=== PATIENT | female | born 1985 | race Caucasian/White ===

== ENCOUNTER 2018-09-25 09:24 | Day surgery (SDC) | payer OTHER, SELFPAY ==
[2018-09-25] MEDS: Doxycycline 100 MG CAPSULE PO (07:00)
[2018-09-25 10:01] VITALS: BP 150/95; PULSE 85; RESP 16; TEMP 36.8; O2SAT 100; BMI 39.0
[2018-09-25 10:12] LABS: Hematocrit 40.1 % (37-47); Hemoglobin 13.8 g/dl (12.0-15.0); Mean Corp Hgb Conc 34.4 g/gl (32-36); Mean Corpuscular Hgb 28.6 pg (27.0-32.0); Mean Platelet Vol. 10.7 fl (6.2-12.0); Platelet Count 103 K/mm3 (150-450); RBC Distribution Width CV 12.9 % (11.6-14.6); RBC Distribution Width SD 39.1 fl (35.1-43.9); Red Blood Count 4.83 M/mm3 (4.2-5.4); White Blood Count 8.3 K/mm3 (4.4-11.0)
[2018-09-25 10:13] LABS: Scan Indicated on CBC? Y/N NO
--- NOTE | 2018-09-25 11:00 | POC_PTH ---
PATIENT: MALCOLM GAGE LOC: [facility] – [place] U#:[id number] AGE/SX: 32/F ROOM: RE09/25/[address]: Dr. Candy Wylie MD : [id number] BED: DIS: 09/25/2018 SPEC #: [id number] RECD: 09/25/18 12:22 STATUS: MAGEN ADRIANA #: [id number] NANCY: 09/25/18 11:[address]: Candy Wylie DEPT: SURGICAL PATHOLOGY RECD BY: Fabio Loyola ENTERED: 09/25/18 13:25 SP TYPE: PROD CONC OTHR DR: Dr. Giovanni Artis III, MD Tissues: Product of conception, NOS Procedures: Surgery Specimen Level IV HEADER OPERATION: Dilation and curettage, suction PRE-OP DIAGNOSIS: Missed TISSUE SUBMITTED: Products of conception MICROSCOPIC DIAGNOSIS Endometrium, curettage: Chorionic villi, decidualized stroma and trophoblastic cells consistent with products of conception. See comment. AM:blaze 09/29/18 COMMENT Hydropic change is noted in some of the villi. Clinical correlation is suggested. MICROSCOPIC DESCRIPTION Slides are reviewed. GROSS DESCRIPTION Received in fixative is one container labeled with the patient's name and designated products of conception. The specimen consists of multiple irregular fragments of reddish-perez soft tissue that in aggregate measure 7 x 5 x 1 cm. Medical Surgical Tech portions are submitted for cytogenetic studies. Medical Surgical Tech portions are submitted in one cassette. 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 Within the limits of the cytogenetic technology utilized in this study, an apparent abnormal female karyotype was observed. All metaphases examined had 45 chromosomes with a single X chromosome. No other consistent numerical or structural abnormality was identified at the level of band resolution obtained in this study. 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 Please see complete report in e-chart or EMR for further details
[2018-09-25 12:15] VITALS: BP 118/63; BP 150/95; PULSE 81; RESP 18; TEMP 36.1; O2SAT 97
[2018-09-25 12:26] VITALS: BP 116/64; BP 150/95; PULSE 89; RESP 18; TEMP 36.1; O2SAT 98
--- NOTE | 2018-09-25 12:26 | DCINST_ITS ---
Discharge Diet: No Restrictions Discharge Activity: Return to Normal Activity - after 24 hours May resume sexual activity in: 2 weeks Weight Bearing Status: Weight bearing as tolerated Call your doctor if you observe: Fever of 101 or Higher, Coldness, Increased Pain, Numbness or Tingling, Change in Color, Inability to urinate, Inability to have a bowel movement, Using more than one pad per hour, Shortness of breath, Dizziness, Fainting spells, Chest pain, Increased palpitations (irregular heartbeat), Uncontrolled pain Allergies/Adverse Reactions: Allergies lavender (Lavandula angustifolia) [lavender] Allergy (Verified 09/23/18 11:35) Rash Medications to take at Discharge Vits [Prenatabs FA ] 1 tablet PO DAILY 09/23/18 Primary Care Physician: Giovanni Artis III, MD [Primary Care Provider] - Test Results: Test results from this visit will be discussed in further detail at your follow- up appointment, if applicable.
--- NOTE | 2018-09-25 12:26 | PCM.OPRPT ---
Report of Operation Date of Procedure: 09/25/18 Pre-Operative Diagnosis: Missed at 9&1 weeks Post-Operative Diagnosis: Same Surgery/Procedure Performed:: Suction dilation and curettage Description of Surgical Findings:: 9 week sized uterus that is retroverted. POC's c/w 9 weeks. Type of Anesthesia:: MAC Specimen's removed: Products of conception Estimated Blood Loss (mL): 100ml Fluids Replaced: 1100ml Description of Procedure: Patient taken to OR where MAC anesthesia placed & found to be adequate. She was placed in the dorsal lithotomy position, prepped & draped. Cervix was grasped with a single toothed tenaculum and then gently dilated. #7 suction curette introduced and removed with good return of POC's. Then additional passes made. Sharp curettage was performed gently with #2 curette. Additional suction curettage was performed. TAUS performed but was limited d/t her retroverted uterus. One additional pass with sharp curette was performed & confirmed gritty uterine texture. At end of procedure all instruments were removed from vaginal cavity. Patient tolerated the procedure well. - Complications none - Admit VTE Documentation VTE Present on Admission: No VTE Mechan Device Prophylaxis: SCD's
[2018-09-25 12:28] VITALS: BP 115/73; BP 150/95; PULSE 72; RESP 18; O2SAT 97
[2018-09-25 13:17] VITALS: BP 150/95
== END 2018-09-25 13:20 | disposition home or self-care (01) ==
LOC: SDC 09:28 → AC 09:29
PROVIDERS: Family Provider Family Medicine; PCP Family Medicine; Referring Provider Obstetrics & Gynecology; Visit Provider Obstetrics & Gynecology
PROC: (CPT 59820; principal; 2018-09-25 10:45)
DX: O02.1 Missed abortion (principal); N85.4 Malposition of uterus
CPT/HCPCS: 01965; 59820; 36415; 85027; 86850; 86900; 88305; J7120; J2405

== ENCOUNTER 2019-07-28 18:55 | Inpatient (IN) | payer OTHER, SELFPAY ==
[2019-07-28] VITALS (7 sets, daily range): BP systolic 120–136; BP diastolic 70–85; PULSE 89–98; TEMP 36.9–37.3; O2SAT 93–97; BMI 41.3
[2019-07-28] MEDS: 0.9% Saline Lock 10 ML Syringe IV (19:35)
[2019-07-28] MEDS: miSOPROStol 25 MCG TABLET VAGINAL (20:04)
[2019-07-28 20:20] LABS: Absolute Lymphocyte Count 2.28 X10^3/uL (0.83-4.51); Absolute Neutrophil Count 7.6 X10^3/uL (2.0-7.7); Basophil# 0.02 X10^3/uL; Basophil% 0.2 % (0-1); Eosinophil# 0.11 X10^3/uL; Hematocrit 36.2 % (37-47); Hemoglobin 12.1 g/dL (12.0-15.0); Lymphocyte # 2.28 X10^3/ul (4.0); Lymphocyte % 20.9 % (19-41); Mean Corp Hgb Conc 33.4 g/dL (32-36); Mean Corpuscular Hgb 28.4 pg (27.0-32.0); Mean Platelet Vol. 11.1 fl (6.2-12.0); Monocyte# 0.88 X10^3/uL; Monocyte% 8.1 % (0-10); NRBC Flagged by Analyzer 0 % (0-5); Neutrophil % 69.4 % (47-70); Platelet Count 236 K/mm3 (150-450); RBC Distribution Width CV 13.2 % (11.6-14.6); RBC Distribution Width SD 40.5 fl (35.1-43.9); Red Blood Count 4.26 M/mm3 (4.2-5.4); White Blood Count 10.9 K/mm3 (4.4-11.0)
[2019-07-28] MEDS: Labetalol 200 MG Tablet PO (21:32)
[2019-07-29] VITALS (56 sets, daily range): BP systolic 112–145; BP diastolic 57–100; PULSE 65–141; TEMP 36.7–37.7; O2SAT 84–100
[2019-07-29] MEDS: miSOPROStol 25 MCG TABLET VAGINAL
[2019-07-29] MEDS: 0.9% Saline Lock 10 ML Syringe IV (04:19)
[2019-07-29] MEDS: Oxytocin 30 units/NS 500 ml 30 UNITS/500 ML IV.SOLN IV (04:19)
[2019-07-29] MEDS: Lactated Ringers 1,000 ML 50 ML IV ×2 (04:19→13:46)
[2019-07-29 05:01] LABS: ROM Internal Control Test YES-OK TO RESULT pt. (Internal QC)
[2019-07-29 05:03] LABS: ROM Patient Test POSITIVE (Negative)
[2019-07-29] MEDS: Ondansetron 4 MG/2 ML Vial IV (08:33)
--- NOTE | 2019-07-29 08:35 | PCM.PN.BLA ---
Progress Note Patient seen at bedside. Doing well. Starting to feel contractions. CE- 2/60/-3, IUPC and FSE placed without difficulty. Thick meconium fluid continues to be present. Pitocin IV at 8mu/min A/P Continue plan of care Continue to titrate Pitocin Pain medication as indicated Anticipate STROKE Vital Signs/Narrative: Vital Signs Temp Pulse BP Pulse Ox 07/29/19 07:19 98.8 F 86 135/84 H 07/29/19 06:33 85 98 07/29/19 06:32 99.0 F 124/85 H 07/29/19 05:47 86 98 07/29/19 05:46 98.8 F 89 136/91 H
--- NOTE | 2019-07-29 08:41 | PCM.HP.OB ---
- Problem List (1) Obesity Status: Acute Qualifiers: Obesity type: unspecified obesity type (2) Spontaneous rupture of amniotic membranes Status: Acute (3) Meconium in amniotic fluid Status: Acute (4) Group beta Strep positive Status: Acute History Date of Admission: 07/28/19 Final LUBNA: 08/03/19 Gestational age: 39 Weeks and 2 Days History of this : This is a 33 year-old, , at 39.2 weeks gestational age that was admitted for induction of labor for increased blood pressures, obesity Allergies lavender (Lavandula angustifolia) [lavender] Allergy (Verified 07/28/19 19:29) Rash Home Medications: Home Medications Vits [Prenatabs FA ] 1 tablet PO DAILY 09/23/18 Aspirin [Aspirin, Baby] 81 mg PO DAILY 07/28/19 Labetalol [Trandate] 200 mg PO BID 07/28/19 Smoking Status: Never smoker Alcohol: None NST - FHR Rate Baby A Baseline: 135 History Past Pregnancies: Past Pregnancies Delivery Date Name GA/ Weeks Outcome Route Wt Sex Labor Length Anesthesia Delivery Location Provider FOB Labs: B positive Rubella - immune Syphilis- NR Hep B- negative HIV- NR GC/C- negative GBS= positive Physical Exam Vitals: Vital Signs Temp Pulse BP Pulse Ox 98.8 F 86 135/84 H 98 07/29/19 07:19 07/29/19 07:19 07/29/19 07:19 07/29/19 06:33 Assessment/Plan All Active Problems Post-term , 40-42 weeks of gestation (Acute) Obesity (Acute) Spontaneous rupture of amniotic membranes (Acute) Meconium in amniotic fluid (Acute) Group beta Strep positive (Acute) This is a 33 year-old, at 39.2 weeks gestational age here for induction of labor for increased blood pressure and obesity. A/P Admit to labor and delivery Continuous EFM and TOCO GBS=+, Start PCN 3million units every [address] internal monitors if unable to monitor Pain medication if indicated Start Pitocin and titrate as needed Anticipate Dr. Wylie updated and agrees with plan of care
[2019-07-29] MEDS: Lactated Ringers 500 ML 999 ML IV (08:58)
[2019-07-29] MEDS: fentaNYL-bupivacaine (epidural) 100 ML BAG EPIDURAL (09:48)
[2019-07-29] MEDS: Labetalol 200 MG Tablet PO ×2 (11:37→23:27)
--- NOTE | 2019-07-29 13:56 | PCM.PN.BLA ---
Progress Note Received update from bedside RN. Patient comfortable with epidural anesthesia. CE completed by RN was /-2. Tracing some noted early decelerations and minimal variability at times but overall reassuring and Category 1. Pitocin remains at 6mu/min Will continue to plan of care and anticipate . Dr. Wylie updated. STROKE Vital Signs/Narrative: Vital Signs Temp Pulse BP Pulse Ox 07/29/19 12:46 76 98 07/29/19 12:45 98.4 F 97 115/77 07/29/19 12:21 88 112/57 L 07/29/19 11:19 81 133/80 H 07/29/19 11:13 98.1 F 93 142/87 H 07/29/19 10:27 73 100 07/29/19 10:22 73 100 07/29/19 10:17 76 100 07/29/19 10:13 73 137/77 H 07/29/19 10:12 73 98 07/29/19 10:08 79 131/85 H 07/29/19 10:07 82 98 07/29/19 10:03 87 141/91 H 07/29/19 10:02 84 100 07/29/19 09:58 82 138/92 H 07/29/19 09:57 86 98
[2019-07-29] MEDS: Oxytocin 30 units/NS 500 ml 30 UNITS/500 ML IV.SOLN 334 UNITS IV ×2 (17:32)
--- NOTE | 2019-07-29 17:53 | PCM.OPRPT ---
Problem List (1) Obesity Status: Acute Qualifiers: Obesity type: unspecified obesity type (2) Spontaneous rupture of amniotic membranes Status: Resolved (3) Meconium in amniotic fluid Status: Resolved (4) Group beta Strep positive Status: Acute (5) Vaginal delivery Status: Acute (6) Perineal laceration during delivery, delivered Status: Acute Report of Operation Date of Procedure: 07/29/19 Pre-Operative Diagnosis: Term gestation, Induction of labor for Chronic HTN Post-Operative Diagnosis: Same, live female infant Surgery/Procedure Performed:: Spontaneous vaginal delivery Type of Anesthesia:: Epidural Vaginal Delivery Maternal Presentation: Medically Indicated Induction Method of Induction: Pitocin, Cytotec Medical Reason for Induction: - - Chronic HTN Amniotic Membrane Rupture Type: Spontaneous Rupture of Membrane time: 0433 Amniotic Fluid Description: Thick meconium Gestational age: 39.2 Date of Procedure: 07/29/19 Pre-Operative Diagnosis: Term Gestation, Induction of labor Post-Operative Diagnosis: Same, live female infant Surgery/ Procedure Performed: Spontaneous Vaginal Delivery Type of Anesthesia: Epidural Description of Procedure: Called to room and patient was completely dilated. Good maternal pushing efforts delivered head. Gentle downward traction with delivery of posterior shoulder followed by rest of infant's body. placed on maternal abdomen. Delayed cord clamping completed and FOB cut cord without difficulty. vigorous. Placenta quickly delivered spontaneously and intact. First-degree vaginal laceration repaired with 3-0 Vicryl. Hemostasis present. Patient bonding with infant. Presentation: SUSAN Placental Delivery Description: Spontaneous Placenta Disposition: [facility] Cord Vessel Description: 3 Vessels Cord Entanglement: - - Cord around body, loose Drain: Melendrez to straight drain Estimated Blood Loss: 250 A gender: Female (1 minute): 8 (5 minute): 9 Episiotomy Description: None Laceration: 1st degree Medications given after delivery: IV Pitocin
[2019-07-29] MEDS: Ibuprofen 600 MG Tablet PO (19:53)
[2019-07-30] VITALS (7 sets, daily range): BP systolic 103–140; BP diastolic 64–92; PULSE 82–96; RESP 16–20; TEMP 36.1–36.6; O2SAT 95
[2019-07-30] MEDS: Ibuprofen 600 MG Tablet PO ×2 (07:48→16:49)
[2019-07-30] MEDS: Senna/Docusate Sodium 1 Tablet PO (07:49)
--- NOTE | 2019-07-30 08:29 | PCM.PN.OB ---
Patient Problems: Active and Suspected Problems Post-term , 40-42 weeks of gestation (Acute) Obesity (Acute) Group beta Strep positive (Acute) Vaginal delivery (Acute) Perineal laceration during delivery, delivered (Acute) Subjective: Patient seen at bedside. Sitting in rocking chair. Feeling well but sore. Taking Motrin for pain relief. Lochia has slowed. . Voiding without difficulty. - Physical Exam Vitals/I&O's: Vital Signs Temp Pulse Resp BP Pulse Ox 97.7 F L 93 18 125/92 H 99 07/30/19 04:15 07/30/19 04:15 07/30/19 04:15 07/30/19 04:15 07/29/19 17:50 Oxygen Delivery Method Room Air Weight: 264 lb Body Mass Index (BMI) 41.3 Intake and Output for Last 24 Hours 07/28/19 07/29/19 07/30/19 23:59 23:59 23:59 Intake Total 4483.38 / 4483.38 Output Total 1050 / 1050 800 / 800 Balance 3433.38 / 3433.38 -800 / -800 General: Alert, Cooperative Lungs: Normal air movement Cardiovascular: Regular rate Abdomen: Soft, Obese Extremities: No Calf Tenderness Skin: No rashes Neurological: Cranial nerves II-XII grossly intact Psych/Mental Status: Normal Affect Current Medications Acetaminophen (Tylenol) 1,000 mg PO Q8H PRN PRN PRN Reason: Pain Score 1-3/10 Bisacodyl (Dulcolax) 10 mg RECTAL UD PRN PRN Reason: If no BM Dibucaine (Dibucaine) 1 applic TOPICAL TID PRN PRN; Protocol PRN Reason: Discomfort Hydrocortisone (Hytone) 1 applic TOPICAL TID PRN PRN; Protocol PRN Reason: Discomfort Ibuprofen (Motrin) 600 mg PO Q6H PRN PRN PRN Reason: Pain Score 1-3/10 Last Admin: 07/30/19 07:48 Dose: 600 mg Documented by: Labetalol HCl (Trandate) 200 mg PO BID ROGER Last Admin: 07/29/19 23:27 Dose: 200 mg Documented by: Methylergonovine Maleate (Methergine) 0.2 mg IM X1 PRN PRN Reason: Excess bleeding/uterine atony Ondansetron HCl (Zofran) 4 mg IV Q4H PRN PRN PRN Reason: Nausea Senna/Docusate Sodium (Senokot-S, Lori-Colace) 1 - 2 tablet PO DAILY PRN PRN PRN Reason: Constipation Last Admin: 07/30/19 07:49 Dose: 2 tablet Documented by: Simethicone (Mylicon) 80 mg PO PCHS PRN PRN Reason: Indigestion/Stomach pain Sodium Chloride () 5 - 15 ml IV UD PRN PRN Reason: SALINE FLUSH Medical Necessity - Tobacco Use Smoking Status: Never smoker Assessment/Plan All Active Problems Post-term , 40-42 weeks of gestation (Acute) Obesity (Acute) Spontaneous rupture of amniotic membranes (Resolved) Meconium in amniotic fluid (Resolved) Group beta Strep positive (Acute) Vaginal delivery (Acute) Perineal laceration during delivery, delivered (Acute) PPD #1 Routine care Pain management
[2019-07-30] MEDS: Labetalol 200 MG Tablet PO ×2 (10:11→22:10)
[2019-07-31 02:55] VITALS: BP 127/76; PULSE 94; RESP 18; TEMP 36.4; O2SAT 96
[2019-07-31] MEDS: Labetalol 200 MG Tablet PO (09:56)
[2019-07-31] MEDS: Ibuprofen 600 MG Tablet PO (09:56)
[2019-07-31 10:00] VITALS: BP 133/83; PULSE 92; RESP 16; TEMP 36.5
--- NOTE | 2019-07-31 11:55 | PN.OBGYN_ITS ---
Patient Problems: Active and Suspected Problems Post-term , 40-42 weeks of gestation (Acute) Obesity (Acute) Group beta Strep positive (Acute) Vaginal delivery (Acute) Perineal laceration during delivery, delivered (Acute) Subjective: Patient doing well. Tolerating regular diet without nausea or vomiting. Ambulating and voiding without difficulty. Denies lightheadedness, dizziness, chest pain, shortness of breath, leg pain. Lochia normal. She is breast- feeding without any breast complaints. She feels ready to go home today. Headache, vision changes, right upper quadrant pain. - Physical Exam Vitals/I&O's: Vital Signs Temp Pulse Resp BP Pulse Ox 97.7 F L 92 16 133/83 H 96 07/31/19 10:00 07/31/19 10:00 07/31/19 10:00 07/31/19 10:00 07/31/19 02:55 Oxygen Delivery Method Room Air Weight: 264 lb Body Mass Index (BMI) 41.3 Intake and Output for Last 24 Hours 07/29/19 07/30/19 07/31/19 23:59 23:59 23:59 Intake Total 4483.38 / 4483.38 Output Total 1050 / 1050 800 / 800 Balance 3433.38 / 3433.38 -800 / -800 General: Alert, No apparent distress HEENT: Atraumatic Skin: No rashes Neurological: Neuro grossly intact Psych/Mental Status: Normal Affect, Appropriate Current Medications Acetaminophen (Tylenol) 1,000 mg PO Q8H PRN PRN PRN Reason: Pain Score 1-3/10 Bisacodyl (Dulcolax) 10 mg RECTAL UD PRN PRN Reason: If no BM Dibucaine (Dibucaine) 1 applic TOPICAL TID PRN PRN; Protocol PRN Reason: Discomfort Hydrocortisone (Hytone) 1 applic TOPICAL TID PRN PRN; Protocol PRN Reason: Discomfort Ibuprofen (Motrin) 600 mg PO Q6H PRN PRN PRN Reason: Pain Score 1-3/10 Last Admin: 07/31/19 09:56 Dose: 600 mg Documented by: Labetalol HCl (Trandate) 200 mg PO BID ROGER Last Admin: 07/31/19 09:56 Dose: 200 mg Documented by: Methylergonovine Maleate (Methergine) 0.2 mg IM X1 PRN PRN Reason: Excess bleeding/uterine atony Ondansetron HCl (Zofran) 4 mg IV Q4H PRN PRN PRN Reason: Nausea Senna/Docusate Sodium (Senokot-S, Lori-Colace) 1 - 2 tablet PO DAILY PRN PRN PRN Reason: Constipation Last Admin: 07/30/19 07:49 Dose: 2 tablet Documented by: Simethicone (Mylicon) 80 mg PO PCHS PRN PRN Reason: Indigestion/Stomach pain Sodium Chloride () 5 - 15 ml IV UD PRN PRN Reason: SALINE FLUSH Medical Necessity - Tobacco Use Smoking Status: Never smoker Assessment/Plan All Active Problems Post-term , 40-42 weeks of gestation (Acute) Obesity (Acute) Spontaneous rupture of amniotic membranes (Resolved) Meconium in amniotic fluid (Resolved) Group beta Strep positive (Acute) Vaginal delivery (Acute) Perineal laceration during delivery, delivered (Acute) day 2 from a vaginal delivery. She has a history of chronic hypertension. Blood pressures have been normal with an occasional mild range . Instructed her to continue her blood pressure medication and call her primary care provider on Friday for follow-up. Discussed signs and symptoms of preeclampsia and when to call. Discharge instructions and follow-up. Discharge home today.
--- NOTE | 2019-07-31 11:56 | DCINST_ITS ---
Discharge Diet: No Restrictions Discharge Activity: May Drive, May Shower, May Take a Tub Bath May resume sexual activity in: 6 weeks Ice area for (Minutes): 20 Weight Bearing Status: Full weight bearing Lifting Restrictions: None Call your doctor if you observe: Fever of 101 or Higher, Inability to urinate, Inability to have a bowel movement, Using more than one pad per hour, Shortness of breath, Dizziness, Fainting spells, Chest pain, Increased palpitations (irregular heartbeat), Calf discomfort, Uncontrolled pain Cleanse incision/area with: Soap & Water Instructions: After a Vaginal Additional Instructions: If you experience any of the following, contact your healthcare provider. * Bleeding that soaks a pad every hour for 2 hours * Fever 100.4 or higher * Unrelieved incision or abdominal pain * Swelling, redness, discharge or bleeding from your incision or episiotomy site * Your incision begins to separate * Problems urinating (including inability to urinate or burning while urinating). * Visual changes * Severe headache * Flu-like symptoms * Pain or redness in one of both of your breasts * Pain, warmth, tenderness or swelling in your legs, especially the calf area * Frequent nausea and vomiting * Symptoms of depression or anxiety If you experience any of the following, call 911 or go to the nearest Emergency Room. * Chest pain * Problems breathing * Seizure activity * Partial or complete paralysis of a body part, slurred speech, weakness or drooping of the face, or a sudden inability to walk or hold your balance Allergies/Adverse Reactions: Allergies lavender (Lavandula angustifolia) [lavender] Allergy (Verified 07/28/19 19:29) Rash Medications to take at Discharge Vits [Prenatabs FA ] 1 tablet PO DAILY 09/23/18 Aspirin [Aspirin, Baby] 81 mg PO DAILY 07/28/19 Labetalol [Trandate] 200 mg PO BID 07/28/19 When: Call the office on Friday to schedule a virtual visit in 1 week and then 6 weeks. Call your primary care doctor on Friday for blood pressure follow up. Primary Care Physician: Giovanni Artis III, MD [Primary Care Provider] - Test Results: Test results from this visit will be discussed in further detail at your follow- up appointment, if applicable.
[2019-07-31 14:00] VITALS: BP 131/84; PULSE 94; RESP 16; TEMP 36.8
--- NOTE | 2019-07-31 16:25 | NURSING ---
1530 Discharged to home with baby. States she wants to go home and feels able to care for herself and her baby.
== END 2019-07-31 15:25 | disposition home or self-care (01) | DRG 951 ==
PROVIDERS: Obstetrics & Gynecology; Admitting Provider Obstetrics & Gynecology; PCP Family Medicine; Visit Provider Obstetrics & Gynecology
DX: Z37.0 Single live birth (principal); O10.92 Unspecified pre-existing hypertension complicating childbirth; O77.0 Labor and delivery complicated by meconium in amniotic fluid; O99.214 Obesity complicating childbirth; O99.824 Streptococcus B carrier state complicating childbirth; Z3A.39 39 weeks gestation of pregnancy; O76 Abnormality in fetal heart rate and rhythm complicating labor and delivery; O69.82X0 Labor and delivery complicated by other cord entanglement, without compression, not applicable or unspecified; O70.0 First degree perineal laceration during delivery
CPT/HCPCS: 59025; 59050; 84112; 85025; 86850; 86900; 86901; 99218; J7120; A4216; G0378; J2405

== ENCOUNTER 2020-07-10 17:36 | Emergency (ER) | payer OTHER, SELFPAY ==
[2019-07-28 19:29] VITALS: BMI 41.3
[2020-07-10 17:37] VITALS: BP 112/59; PULSE 110; RESP 17; TEMP 36.2; O2SAT 97; BMI 44.4
--- NOTE | 2020-07-10 17:49 | ED.VIS.GEN ---
History of Present Illness Chief Complaint: Nausea/Vomiting/Diarrhea Informant: Patient, Significant Other Narrative: 34-year-old female presents for the evaluation of vomiting and diarrhea. Patient states that she woke this morning ate breakfast and felt fine. Around 11:00 she developed diarrhea and after lunch needed to come home. She then developed vomiting addition to her diarrhea. She felt like she might pass out in the bathroom. No fevers. No rashes. No known bad food exposures. No new medications or supplements. No prior abdominal surgeries. She has a history of hypertension depression. Past Medical History - Allergies and Home Meds Allergies/Adverse Reactions: Allergies lavender (Lavandula angustifolia) [lavender] Allergy (Verified 07/10/20 17:37) Rash Primary Care Physician: Giovanni Artis III, MD [Primary Care Provider] - 3-5 Days if not improving Past Medical History: - - Hypertension depression Surgical History: noncontributory Lives: Spouse/ Significant Other Smoking Status: Never smoker Drugs: None Review of Systems General: Denies: Chills, Fever, Sweats Eyes: Denies: Visual changes - bilaterally, Diplopia ENT: Denies: Rhinorrhea, Sore throat Cardiovascular: Denies: Chest pain, Palpitations Respiratory: Denies: Dyspnea, Cough, Dyspnea on exertion Gastrointestinal: Reports: Nausea, Vomiting, Diarrhea. Denies: Abdominal pain, Melena, Hematochezia Genitourinary: Denies: Dysuria, Hematuria, Frequency Musculoskeletal: Denies: Back pain, Extremity Pain Skin: Denies: Rash, Wounds Neurological: Denies: Headache, Weakness, Numbness Physical Exam Vital Signs/Narrative: Vital Signs Temp Pulse Resp BP Pulse Ox 07/10/20 17:37 97.2 F L 110 H 17 112/59 L 97 Inital Vital Signs reviewed: Yes General: Obese Head: Normocephalic, Atraumatic Eyes: Perrl, EOMI ENT: Moist mucous membranes, No rhinorrhea Neck: Supple, Nontender Cardiovascular: Regular rate, Regular rhythm, No murmurs Respiratory: No distress, CTA bilaterally, Chest nontender Abdomen: Soft, Nontender, Nondistended, Normal bowel sounds Back: Nontender, Normal Inspection Extremities: Nontender, No edema Skin: Normal color, No rash Neurological: Alert, Oriented x3, Cranial nerves II-XII grossly intact, Normal Strength, Normal Sensation Psychological: Normal affect, - - Anxious mood. Diagnostic/Tx/Re-eval Clinical Impression(s) from Imaging Studies Abdomen/Pelvis CT 07/10/20 18:50 IMPRESSION: Ileus Electronically Signed: Godfrey Finch MD at 19:50 EST , Service support , Laboratory Last Values WBC 19.3 K/mm3 (4.4-11.0) H 07/10/20 18:00 RBC 5.87 M/mm3 (4.2-5.4) H 07/10/20 18:00 Hgb 16.7 g/dL (12.0-15.0) H 07/10/20 18:00 Hct 49.0 % (37-47) H 07/10/20 18:00 MCV 83.5 fL (81-99) 07/10/20 18:00 MCH 28.4 pg (27.0-32.0) 07/10/20 18:00 MCHC 34.1 g/dL (32-36) 07/10/20 18:00 RDW Std Deviation 38.3 fl (35.1-43.9) 07/10/20 18:00 RDW Coeff of Wilfred 12.6 % (11.6-14.6) 07/10/20 18:00 Plt Count 376 K/mm3 (150-450) 07/10/20 18:00 MPV 10.0 fl (6.2-12.0) 07/10/20 18:00 Immature Gran % (Auto) 0.600 % (0.0-0.9) 07/10/20 18:00 Neut % (Auto) 89.4 % (47-70) H 07/10/20 18:00 Lymph % (Auto) 4.5 % (19-41) L 07/10/20 18:00 Mcculloch % (Auto) 4.8 % (0-10) 07/10/20 18:00 Eos % (Auto) 0.5 % (0-5) 07/10/20 18:00 Baso % (Auto) 0.2 % (0-1) 07/10/20 18:00 Absolute Neuts (auto) 17.2 X10^3/uL (2.0-7.7) H 07/10/20 18:00 Absolute Lymphs (auto) 0.87 X10^3/uL (0.83-4.51) 07/10/20 18:00 Nucleated RBC % 0 % (0-5) 07/10/20 18:00 Sodium 137 mmol/L (136-145) 07/10/20 18:00 Potassium 4.3 mmol/L (3.5-5.1) 07/10/20 18:00 Chloride 104 mmol/L (98-107) 07/10/20 18:00 Carbon Dioxide 24.0 mmol/L (21.0-32.0) 07/10/20 18:00 Anion Gap 9 (5-15) 07/10/20 18:00 BUN 17 mg/dL (7-18) 07/10/20 18:00 Creatinine 0.96 mg/dL (0.55-1.02) 07/10/20 18:00 Estim Creat Clear Calc 78.03 ml/min 07/10/20 18:00 Est GFR (MDRD) Af Amer 85 mL/min (>60) 07/10/20 18:00 Est GFR (MDRD) Non-Af 71 mL/min (>60) 07/10/20 18:00 BUN/Creatinine Ratio 17.6 RATIO (10-20) 07/10/20 18:00 Glucose 157 mg/dL (74-106) H 07/10/20 18:00 Calcium 10.2 mg/dL (8.5-10.1) H 07/10/20 18:00 Total Bilirubin 0.80 mg/dL (0.20-1.00) 07/10/20 18:00 AST 29 U/L (15-37) 07/10/20 18:00 ALT 45 U/L (13-56) 07/10/20 18:00 Alkaline Phosphatase 125 U/L (45-117) H 07/10/20 18:00 Total Protein 9.4 g/dL (6.4-8.2) H 07/10/20 18:00 Albumin 4.5 g/dL (3.2-5.0) 07/10/20 18:00 Globulin 4.9 g/dL (2.2-4.2) H 07/10/20 18:00 Albumin/Globulin Ratio 0.9 RATIO (0.9-2.4) 07/10/20 18:00 Lipase 118 U/L (73-393) 07/10/20 18:00 Serum , Qual NEGATIVE Negative 07/10/20 18:00 - Medical Decision Making Patient received IV fluids, Phenergan, and Imodium. Basic blood work was obtained. Patient could be with leukocytosis of 19. Therefore a CT of the abdomen pelvis was obtained which was being read as an ileus. The patient's vomiting has been controlled with Phenergan. She is still had some diarrhea. I suspect she will continue to have diarrhea and that this is more of a gastroenteritis. I will write for Phenergan and some Zofran at home. Continued Imodium. Return instructions given and were noted to be understood by patient and her significant other. ED Disposition - Plan for ED Patient: Disposition: Home or Assisted Living Diagnosis: Vomiting and diarrhea Instructions: ED Vomiting and Diarrhea ... Prescriptions: proMETHazine tablet [Phenergan] 25 mg PO Q8H PRN PRN #14 tab PRN Reason: Nausea Prescription Printed Ondansetron [Zofran Odt] 4 mg PO Q6H PRN PRN #14 tab PRN Reason: Nausea Prescription Printed Referrals: Giovanni Artis III, MD [Primary Care Provider] - 3-5 Days if not improving
[2020-07-10] MEDS: 0.9% Normal Saline 1,000 ML 1000 ML IV (18:04)
[2020-07-10] MEDS: Loperamide 2 MG Capsule 4 MG PO (18:04)
[2020-07-10] MEDS: proMETHazine 25 MG/ML Syringe 12.5 MG IV (18:04)
[2020-07-10 18:25] LABS: Absolute Lymphocyte Count 0.87 X10^3/uL (0.83-4.51); Absolute Neutrophil Count 17.2 X10^3/uL (2.0-7.7); Basophil# 0.04 X10^3/uL; Basophil% 0.2 % (0-1); Eosinophil# 0.09 X10^3/uL; Eosinophils% 0.5 % (0-5); Hemoglobin 16.7 g/dL (12.0-15.0); Lymphocyte # 0.87 X10^3/ul (4.0); Lymphocyte % 4.5 % (19-41); Mean Corp Hgb Conc 34.1 g/dL (32-36); Mean Corpuscular Hgb 28.4 pg (27.0-32.0); Mean Corpuscular Volume 83.5 fL (81-99); Monocyte# 0.92 X10^3/uL; Monocyte% 4.8 % (0-10); NRBC Flagged by Analyzer 0 % (0-5); Neutrophil # 17.22 X10^3/uL (2.7-7.7); Neutrophil % 89.4 % (47-70); Platelet Count 376 K/mm3 (150-450); RBC Distribution Width CV 12.6 % (11.6-14.6); RBC Distribution Width SD 38.3 fl (35.1-43.9); Red Blood Count 5.87 M/mm3 (4.2-5.4); White Blood Count 19.3 K/mm3 (4.4-11.0)
[2020-07-10 18:34] LABS: Internal QC Validated? YES +Cl - CLEAR BKGD; Pregnancy, Serum, hCG Quali. NEGATIVE Negative
[2020-07-10 18:40] LABS: ALB/GLOB Ratio 0.9 RATIO (0.9-2.4); AST(SGOT) 29 U/L (15-37); Alanine Aminotransfer ALT/SGPT 45 U/L (13-56); Albumin, Serum 4.5 g/dL (3.2-5.0); Alkaline Phosphatase 125 U/L (45-117); Anion Gap 9 (5-15); BUN 17 mg/dL (7-18); BUN/Creat Ratio 17.6 RATIO (10-20); Calcium,Total 10.2 mg/dL (8.5-10.1); Chloride 104 mmol/L (98-107); Creatinine, Serum 0.96 mg/dL (0.55-1.02); EST Glomerular Filtration Rate 71 mL/min (>60); Est Glom Filt Rate - Afr Amer 85 mL/min (>60); Estimated Creatinine Clearance 78.03 ml/min; Globulin 4.9 g/dL (2.2-4.2); Glucose 157 mg/dL (74-106); Lipase 118 U/L (73-393); Potassium 4.3 mmol/L (3.5-5.1); Protein, Total 9.4 g/dL (6.4-8.2); Sodium Level 137 mmol/L (136-145)
--- NOTE | 2020-07-10 18:50 | CT_ITS ---
STUDY: CT ABDOMEN AND PELVIS WITH CONTRAST REASON FOR EXAM: Female, 34 years old. vomiting diarrhea leukocytosis RADIATION DOSAGE (If Supplied By Facility): CTDIvol = ( 17.06 ) mGy, DLP = ( 1367.34 ) mGycm TECHNIQUE: Transaxial images were obtained from the dome of the diaphragm to the symphysis pubis without oral contrast. IV 100mL Isovue-300 was administered. Sagittal and coronal images were reconstructed. Individualized dose optimization techniques were used for this CT. COMPARISON: None. FINDINGS: The visualized lung bases are unremarkable. The visualized portions of the heart are within normal limits. Normal liver. Normal gallbladder and extrahepatic biliary system. Normal spleen. Normal pancreas. Normal bilateral adrenal glands. Normal right kidney. Normal left kidney. Normal visualized stomach. Normal small intestine. Air-fluid levels noted in the colon. Appendix normal. Normal abdominal aorta. Normal inferior vena cava. Normal retroperitoneum. Bladder is decompressed. IUD noted in the body of the uterus. Normal abdominal wall. Normal osseous structures. CT/Abdomen/Pelvis W IV Cont ONLY IMPRESSION: Ileus Electronically Signed: Godfrey Finch MD at 19:50 EST , Service support ,
[2020-07-10 20:23] VITALS: BP 127/90; PULSE 108; RESP 18; O2SAT 96
== END 2020-07-10 20:25 | disposition home or self-care (01) ==
LOC: ED 18:19
PROVIDERS: Emergency Provider Emergency Medicine; PCP Family Medicine
DX: R11.2 Nausea with vomiting, unspecified (principal); R19.7 Diarrhea, unspecified; I10 Essential (primary) hypertension; F32.9 Major depressive disorder, single episode, unspecified; Z79.899 Other long term (current) drug therapy
CPT/HCPCS: 74177; 80053; 83690; 84703; 85025; 96361; 96374; 99283; J7030; Q9967; A4216

== ENCOUNTER 2020-07-28 14:49 | Outpatient (RCR) | payer OTHER, SELFPAY | END 2020-10-10 23:59 | LOC: IMMUN 14:49 | PROVIDERS: PCP Family Medicine; Visit Provider Family Medicine | DX: Z23 Encounter for immunization (principal) | CPT/HCPCS: 0001A; 0002A; 91300 ==

== ENCOUNTER 2025-02-27 14:09 | Emergency (ER) | payer BC, SELFPAY ==
[2025-02-27 14:10] VITALS: BP 183/105; PULSE 104; RESP 16; TEMP 36.8; O2SAT 100; BMI 41.8
--- NOTE | 2025-02-27 14:30 | EDS_ITS ---
HPI History of Present Illness Chief Complaint: Dizziness Detail of Chief Complaint: Dizziness Informant: patient Onset/Context/Timing Onset: Days (Onset 5 days ago) Timing: Intermittent Quality: Spinning sensation Location: Change of position and specifically going from upright to supine Current Severity: Gone Maximum Severity: Severe Worsened by: Change in position Relieved by: Remaining still and closing her eyes Associated Symptoms Associated Symptoms: No visual or ocular symptoms Narrative Narrative: Patient 39-year-old woman. She has history of obesity with a BMI of 41.9. She presents because of intermittent dizziness that is associated with change in position. Denies diplopia, change in vision or blurred vision. She states she has a chronic headache. She has headaches daily. This headache is no different. She denies trouble with speech or swallowing. She denies paresthesia, anesthesia or motor aches. She denies problems with use of her extremities. She denies problems with coordination. The dizziness lasts a minute. Patient has no other complaints. She is not on any hypertensive medication. Her blood pressure is elevated. She states she went to the urgent care for is told she needed a CAT scan. Prior similar symptoms: No Recent Illness/Hospitalization: No PFSH PFSH Medical History no medical history Home Medications ?Medication ?Instructions ?Recorded ?Last Taken ?Type vits,calcium no.78-iron 1 tab PO DAILY Check with primary 09/23/18 07/27/19 21:00 History fumarate-folic acid 29 mg-1 mg doctor tablet (Prenatabs FA) aspirin 81 mg chewable tablet 81 mg PO DAILY Check wit [facility] 07/28/19 07/27/19 22:30 History doctor labetalol 200 mg tablet 200 mg PO BID Check with [facility] 07/28/19 07/28/19 09:00 History doctor ondansetron 4 mg disintegrating 4 mg PO Q6H PRN PRN Na usea #14 tabs 07/10/20 Unk nown Rx tablet promethazine 25 mg tablet 25 mg PO Q8H PRN PRN Nausea #14 07/10/20 Unknown Rx tabs Allergy/AdvReac Type Severity Reaction Status Date / Time lavender (Lavandula Allergy Rash Verified 02/27/25 14:10 angustifolia) (lavender) Family History no significant family his Surgical History no surgical history Social History (Updated 02/27/25 @ 14:[address] Jay Omer MD) household members: family and children Smoking Status: Never smoker ROS ROS ED Constitutional Constitutional ED: Denies chills, fever(s) or subjective Eyes Eyes: Denies blurry vision, change in vision or diplopia ENT ENT ED: Denies ear pain, rhinorrhea or sore throat Cardiovascular Cardiovascular: Denies chest pain or palpitations Respiratory/Chest Respiratory/Chest: Denies cough, dyspnea or dyspnea on exertion Gastrointestinal Gastrointestinal: Denies abdominal pain, diarrhea or vomiting Genitourinary Genitourinary ED: Denies dysuria, hematuria or urinary frequency Musculoskeletal Musculoskeletal: Denies arthralgias or myalgias Neurologic Neurologic: Reports headache(s); Denies paresthesias or weakness Hematologic/Lymphatic Hematologic/Lymphatic: Reports systems reviewed and no addt'l complaints, except as documented EXAM Physical Exam Const Vital Signs: 02/27/25 14:10 Temperature 98.3 F Temperature Source Oral Pulse Rate 104 H Respiratory Rate 16 Blood Pressure 183/105 H Blood Pressure Mean 131 Pulse Ox 100 Oxygen Delivery Method Room Air Positive well nourished and well developed Constitutional Narrative: Pleasant woman who is appears no distress. When she was asked to sit up she close to rise. When asked why she states that the dizziness goes away General Appearance ED: well developed; Negative for pallor HEENT Reports moist mucous membranes HEENT Narrative: Has atraumatic normocephalic. Ears are normal. Nares are patent. Posterior pharynx is normal. Eyes PERRL and EOMs intact bilaterally Eyes Narrative: Patient has 4 sinus tablets with lateral gaze to the right and left. This would indicate peripheral vertigo. General Eye ED: Negative for pale conjunctiva or scleral icterus Neck no lymphadenopathy and supple Resp normal respiratory effort and clear to auscultation bilaterally Cardio regular rate, regular rhythm, S1 normal heart sound, S2 normal heart sound and no murmurs Extremity normal to inspection Neuro oriented x3, CN's II-XII intact bilaterally and no sensory deficits noted Neuro Narrative: There is no dysmetria. The eye askew test was negative. Sesar-Hallpike test was positive bilaterally worse to the left she had nystagmus in the head with the left and fatigue/resolved with time Psych mental status grossly normal Skin no rashes or lesions noted and no wounds General Skin Exam: elasticity normal; Negative for jaundice or pallor MDM MDM MDM Narrative Medical decision making narrative: Patient was informed she does not need a CAT scan. She has paroxysmal benign positional vertigo. Patient was informed that I would perform her maneuver called the Ruthie maneuver. Treatment and Re-Evaluation :: House-Hallpike was worse to the left. Modified Ruthie test was done. Patient had resolution of her symptoms. Will reassess in 15 minutes. Comments:: Patient was reassessed at 1605. Patient's symptoms have resolved. She was ambulated with no recurrence. Therefore, will discharge to home Discharge Plan Triage Chief Complaint: Dizziness Other Complaint: Headache ED Provider: Jay Omer Dx/Rx/DC Orders Clinical Impression: Benign paroxysmal positional vertigo of left ear, Elevated blood pressure reading without diagnosis of hypertension, Adult BMI 40.0-44.9 kg/sq m Instructions: ED BPV Vertigo, ED Hypertension, To Be Confirmed Prescriptions: No Action vit,ashlee [id number] [Prenatabs FA] 1 TABLET tablet 1 tab PO DAILY labetalol 200 MG tablet 200 mg PO BID aspirin 81 MG tablet,chewable 81 mg PO DAILY ondansetron 4 MG tablet 4 mg PO Q6H PRN PRN (Reason: Nausea) Qty: 14 0RF promethazine 25 MG tablet 25 mg PO Q8H PRN PRN (Reason: Nausea) Qty: 14 0RF Primary Care Provider: Song Mai Referrals: Weston Kaba MD [[facility]] - 1-2 Weeks Activity Restrictions/Additional Instructions: Your blood pressure reading was elevated. This will need to be reassessed in 1 to 2 weeks. If it is still elevated Dr. Lee will need to prescribe blood pressure medication for you. Print Language: Irish Disposition Disposition: Home, Self Care
--- OUTSIDE RECORDS SUMMARY | 2025-02-27 14:34 | XMS RPT_ITS | CCD ---
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 Rules Name Role Phone Hill Mai MD Primary Care Provider Hill Mai MD Primary Care Provider Podlogar PEDIATRIC PHYSICIAN.Violeta BLAIR Unavailable [phone] [place] PEDIATRIC PHYSICIAN.Ngoc BLAIR Unavailable [place] PEDIATRIC PHYSICIAN.Ngoc BLAIR Unavailable Hill Moore Primary Care Unavaila ble Assessment, Health Risk Attending Unavaila ble HILL MAI Primary Care Unavailable GODFREY BECK Attending Unavailable HILL MAI Attending Unavailable HILL MAI Primary Care Unavailable HILL MAI Attending Unavailable HILL MAI Primary Care Unavailable HILL MAI Referring Unavailable HILL MAI Primary Care Unavailable HILL MAI Referring Unavailable HILL MAI Primary Care Unavailable SADIA NATARAJAN Attending Unavailable HILL MAI Primary Care Unavailable HILL MAI Primary Care Unavailable Allergies Allergy Classification Reported Allergen(s) Allergy Type Date of Onset Reaction(s) Facility (20 sources) Lavender (Lavandula Angustifolia); Translations: [LAVENDER (LAVANDULA ANGUSTIFOLIA)] Drug Allergy 07-28-2019 [facility] (1 source) lavender (Lavandula angustifolia) Drug allergy (disorder) 07-10-2020 [facility] Rep[facility] Medications Current Medications Medication Drug Class(es) Dates Sig (Normalized) Sig (Original) amoxicillin 875 mg oral tablet (2 sources) Penicillin-class Antibacterial Start: 08-02-2022 End: 08-09-2022 take 1 tablet by mouth twice daily amoxicillin (AMOXIL) 875 mg tablet Indications: Other acute nonsuppurative otitis media of left ear, recurrence not specified Take 1 tablet by mouth twice daily for 7 days. 14 tablet 0 08/02/2022 08/09/2022 Active Start: 02-13-2022 End: 02-20-2022 take 1 tablet by mouth twice daily amoxicillin (AMOXIL) 875 mg tablet Take 1 tablet by mouth twice daily for 7 days. 14 tablet 0 02/13/2022 02/20/2022 Active Comment on above: Take 1 tablet by binh th twice daily for 7 days. amoxicillin 875 mg / clavulanate 125 mg oral tablet (1 source) Penicillin-class Antibacterial Start: 08-13-19 End: 08-20-19 take 1 tablet by mouth twice daily amoxicillin-clavulan ate potassium (AUGMENTIN) 875-125 mg per tablet Take 1 tablet by mouth two times a day for 7 days. 14 tablet 08/12/2024 08/19/2024 Active benzonatate 100 mg oral capsule (2 sources) Non-narcotic Antitussive Start: 04-18-20 23 End: 10-10-19 24 take 2 capsules by mouth every eight hours as needed benzonatate (TESSALON PERLE) 100 mg capsule Take 2 capsules by mouth three times a day as needed. 40 capsule 0 04/18/2023 10/10/2023 Discontinued Start: 08-02-2022 End: 08-12-2022 take 2 capsules by mouth three times daily as needed benzonatate (TESSALON PERLE) 100 mg capsule Indications: Viral URI with cough Take 2 capsules by mouth three times daily as needed for up to 10 days. 60 capsule 0 08/02/2022 08/12/2022 Active Comment on above: Take 2 capsules by out three times daily as needed for up to 10 days. bbhg-ajk-dqy-eliseo-ps yl-kelp-pec (FIBER 6) 1,000 mg tab (20 sources) Start: 07-02-2019 take 1 tablet by mouth once daily sdpv-cky-cke-eliseo- tybi-fzaw-ejc (FIBER 6) 1,000 mg tab Take 1 tablet by mouth once daily. 07/02/2019 Active Start: 07-02-2019 take 1 tablet by binh th once daily unsl-psd-sny-vki-wzth-vkjx-pec (FIBER 6) 1,000 mg tab Take 1 tablet by mouth once daily. 0 07/02/2019 Active Comment on above: Take 1 tablet by [facility] once daily. Calcium (20 sources) Phosphate Binder, Calcium take 2 tablets by mouth once daily CALCIUM ORAL Take 2 tablets by mouth once daily. Active take 2 tablets by mouth once sandra ly CALCIUM ORAL Take 2 tablets by mouth once daily. 0 Active Comment on above: Take 2 tablets by [facility] once daily. labetalol hydrochloride 200 mg oral tablet (20 sources) beta-Adrenergic Andrea Start: 10-09-2022 End: 01-21-2024 take 1 tablet by mouth twice daily labetalol (TRANDATE) 200 mg tablet Take 1 tablet by mouth two times a day. 180 tablet 1 01/21/2024 Active Start: 01-31-2021 End: 10-09-2022 take 2 tablets by mouth twice daily labetalol (TRANDATE) 100 mg tablet Take 2 tablets by mouth twice daily. 120 tablet 5 11/12/2021 10/09/2022 Discontinued Comment on above: Take 2 tablets by [facility] twice daily. Take 1 tablet by [facility] twice daily. mv-min/iron/folic/calcium/vi t K (WOMEN'S MULTIVITAMIN ORAL) (20 sources) mv-min/iron/foli c/calcium/vi tK (WOMEN'S MULTIVITAMIN ORAL) Take by mouth. Active mv-min/iron/foli c/calcium/vitK (WOMEN'S MULTIVITAMIN ORAL) Take by mouth. 0 Active Comment on above: Take by mouth. predniSONE 10 mg oral tablet (6 sources) Start: 11-16-2024 End: 11-28-2024 predniSONE (DELTASONE) 10 mg tablet Take 6 tabs x 3 days,then 5 tabs x 3 days,4 tabs daily x 3 days, then 3 tabs x 3 days, 2 tabs x 3 days, then 1 tab x3 days with food. 63 tablet 11/16/2024 11/28/2024 Active Start: 11-10-2024 End: 11-17-2024 take 4 tablets by mouth once daily, then take 2 tablets by mouth once daily, then take 1 tablet by mouth once daily predniSONE (DELTASONE) 10 mg tablet Indications: Contact dermatitis due to plant Take 4 tablets by mouth once daily for 3 days, THEN 2 tablets once daily for 3 days, THEN 1 tablet once daily for 1 day. 19 tablet 11/10/2024 11/16/2024 Discontinued Start: 10-28-2023 End: 11-06-2023 predniSONE (DELTASONE) 10 mg tablet Take 4 tabs daily for 3 days, then 2 tabs daily for 3 days, then 1 tab daily for 3 days with food. 21 tablet 0 10/28/2023 11/06/2023 Active sertraline 50 mg oral tablet (20 sources) Serotonin Reuptake Inhibitor Start: 05-27-2022 End: 01-05-2025 take 1 tablet by mouth once daily sertraline (ZOLOFT) 50 mg tablet Take 1 tablet by mouth once daily. 90 tablet 1 07/09/2024 Active Start: 05-07-2021 End: 11-03-2021 take 1 tablet by mouth once daily sertraline (ZOLOFT) 50 mg tablet Take 1 tablet by mouth once daily. 90 tablet 3 05/07/2021 Active Comment on above: Take 1 tablet by binh th once daily. Completed/Discontinued Medications Medication Drug Class(es) Dates Sig (Normalized) Sig (Original) [id number] 200 actuat albuterol 0.09 mg/actuat metered dose inhaler (6 sources) beta2-Adrenergic Agonist Start: 04-18-2023 End: 03-09-2024 take 2 puff(s) by inhalation every four hours as needed albuterol HFA (PROAIR HFA) 90 mcg/actuation inhaler Inhale 2 Puffs as instructed every 4 hours as needed. 18 g 04/18/2023 03/09/2024 Discontinued fluocinonide 0.5 mg/ml topical cream (11 sources) Corticosteroid Start: 07-13-2021 End: 04-17-2023 fluocinonide (LIDEX) 0.05 % cream Indications: Granuloma annulare Apply to affected skin trunk lower extremities twice a day x 2wks then twice weekly prn flare 60 g 1 07/13/2021 04/17/2023 Discontinued (Course of therapy completed) Comment on above: Apply to affected sk in trunk lower extremities twice a day x 2wks then twice weekly prn flare levonorgestrel 0.798332 mg/hr intrauterine system (20 sources) Progestin, Progestin-containin g Intrauterine Device Start: 10-04-2019 End: 11-16-2024 levonorgestrel (MIRENA) 20 mcg/24 hours (6 yrs) 52 mg IUD 1 Each by INTRAUTERINE route one time only for 1 dose. 1 Each 10/04/2019 11/16/2024 Discontinued Comment on above: 1 Each by INTRAUTERI NE route one time only for 1 dose. triamcinolone acetonide 1 mg/ml topical cream (1 source) Corticosteroid Start: 07-13-2021 End: 10-23-2021 triamcinolone acetonide (KENALOG) 0.1 % cream Indications: Granuloma annulare Apply to affected skin on shoulders upper arms twice a day x 2wks then twice daily prn flare 80 g 1 07/13/2021 10/23/2021 Discontinued Comment on above: Apply to affected sk in on shoulders upper arms twice a day x 2wks then twice daily prn flare Problems Active Problems Problem Classification Problem Date Documented Date Episodic/Chronic Anxiety disorders (20 sources) Mixed anxiety and depressive disorder; Translations: [Other specified anxiety disorders] Onset: 11-02-2020 11-02-2020 Chronic Coma; stupor; and brain damage (3 sources) Daytime somnolence; Translations: [Somnolence] Onset: 01-18-2025 01-18-2025 Episodic Essential hypertension (20 sources) Essential hypertension; Translations: [Essential (primary) hypertension] Onset: 11-02-2020 11-02-2020 Chronic Immunizations and screening for infectious disease (9 sources) Patient encounter status; Translations: [Encounter for screening for human papillomavirus (HPV)] Episodic Other lower respiratory disease (1 source) Wheezing; Translations: [Wheezing] 04-17-2023 Episodic Other lower respiratory disease (2 sources) Snoring; Translations: [Snoring] 01-18-2025 Episodic Other lower respiratory disease (1 source) Snoring; Translations: [Snoring] Onset: 01-18-2025 Episodic Other nervous system disorders (20 sources) Carpal tunnel syndrome; Translations: [Carpal tunnel syndrome, unspecified upper limb] Onset: 12-16-2008 12-16-2008 Chronic Other nutritional; endocrine; and metabolic disorders (20 sources) Body mass index 40+ - severely obese; Translations: [Morbid (severe) obesity due to excess calories] 11-02-2020 Chronic Other nutritional; endocrine; and metabolic disorders (1 source) Morbid (severe) obesity due to excess calories; Translations: [Morbid obesity with BMI of 40.0-44.9, adult ([facility])] Onset: 11-02-2020 Chronic Other nutritional; endocrine; and metabolic disorders (1 source) Body mass index (BMI) 40.0-44.9, adult; Translations: [Morbid obesity with BMI of 40.0-44.9, adult ([facility])] Onset: 11-02-2020 Chronic Other upper respiratory infections (4 sources) Acute upper respiratory infection; Translations: [Acute upper respiratory infection, unspecified] Episodic Otitis media and related conditions (3 sources) Acute left otitis media; Translations: [Otitis media, unspecified, left ear] Episodic Past or Other Problems Problem Classification Problem Date Documented Da te Episodic/Chronic Allergic reactions (5 sources) Allergic contact dermatitis caused by plant material; Translations: [Allergic contact dermatitis due to plants, except food] Onset: 11-10-2024 10-28-2023 Episodic Bacterial infection; unspecified site (12 sources) Bacteria present; Translations: [Streptococcus, group B, as the cause of diseases classified elsewhere] Onset: 07-06-2019 Resolved: 09-09-2019 09-09-2019 Episodic Diabetes mellitus without complication (3 sources) Increased glucose level; Translations: [Other abnormal glucose] Onset: 11-10-2024 10-09-2023 Episodic Diabetes or abnormal glucose tolerance complicating ; childbirth; or the puerperium (12 sources) Abnormal glucose level; Translations: [Abnormal glucose complicating ] Onset: 05-10-2019 Resolved: 09-09-2019 09-09-2019 Episodic Gastrointestinal hemorrhage (20 sources) Rectal hemorrhage; Translations: [Hemorrhage of anus and rectum] Onset: 07-13-2015 07-13-2015 Episodic Hemorrhage during ; abruptio placenta; placenta previa (12 sources) Low lying placenta; Translations: [Low lying placenta NOS or without hemorrhage, unspecified trimester] Onset: 03-11-2019 Resolved: 06-03-2019 06-03-2019 Episodic Hypertension complicating ; childbirth and the puerperium (12 sources) Elevated blood pressure; Translations: [Unspecified maternal hypertension, unspecified trimester] Onset: 02-11-2019 Resolved: 09-09-2019 09-09-2019 Chronic Menstrual disorders (12 sources) Irregular periods; Translations: [Irregular menstruation, unspecified] Onset: 04-23-2007 Resolved: 02-11-2019 02-11-2019 Chronic Other and unspecified benign neoplasm (15 sources) History of polyp of colon; Translations: [Personal history of colonic polyps] Onset: 12-30-2022 12-30-2022 Episodic Other complications of (12 sources) Obesity; Translations: [Obesity complicating , unspecified trimester] Onset: 07-25-2017 Resolved: 09-09-2019 09-09-2019 Chronic Other complications of (12 sources) H/O: miscarriage; Translations: [Supervision of with other poor reproductive or obstetric history, unspecified trimester] Onset: 08-18-2018 Resolved: 09-09-2019 09-09-2019 Episodic Other complications of (12 sources) Supervision of with other poor reproductive or obstetric history, first trimester; Translations: [ with other poor obstetric history] Onset: 12-10-2018 Resolved: 09-09-2019 09-09-2019 Episodic Other inflammatory condition of skin (20 sources) Other specified erythematous conditions; Translations: [Other specified erythematous conditions] Onset: 02-20-2006 02-20-2006 Episodic Residual codes; unclassified (20 sources) Family history of breast cancer; Translations: [Family history of malignant neoplasm of breast] Onset: 02-06-2017 02-06-2017 Episodic Spondylosis; intervertebral disc disorders; other back problems (20 sources) Acute back pain with sciatica; Translations: [Lumbago with sciatica, right side] Onset: 10-16-2017 10-16-2017 Episodic Results Test Name Value Interpretation Reference Range [facility] it Comprehensive Metabolic Prof matthew 02-16-2025 Albumin [Mass/Vol] 4.3 g/dL Normal 3.5-5.0 [facility] Comment on above: Performed By: #### L 500.4050, L500.4100 #### [facility] [place], [address] Albumin/Globulin [Mass ratio] 1.4 {ratio} Normal 0.9-2.4 [facility] Comment on above: Performed By: #### L 500.4050, L500.4100 #### [facility] [address] [place], [address] ALK PHOS 102 U/L Normal 35-104 [facility] Comment on above: Performed By: #### L 500.4050, L500.4100 #### [facility] [address] [place], [address] ALT [Catalytic activity/Vol] 25 U/L Normal <=34 [facility] Comment on above: Performed By: #### L 500.4050, L500.4100 #### [facility] [address] [place], [address] AST [Catalytic activity/Vol] 25 U/L Normal <=31 [facility] Comment on above: Performed By: #### L 500.4050, L500.4100 #### [facility] [address] [place], [address] Bilirubin [Mass/Vol] 0.50 mg/dL Normal 0.00-1.30 [facility] Comment on above: Performed By: #### L 500.4050, L500.4100 #### [facility] [address] [place], [address] BUN/CRE 12.9 RATIO Normal 10-20 [facility] Comment on above: Performed By: #### L 500.4050, L500.4100 #### [facility] [address] [place], [address] Calcium [Mass/Vol] 9.4 mg/dL Normal 7.6-11.0 [facility] Comment on above: Performed By: #### L [id number], [id number] #### [facility] [address] [place], [address] Chloride [Moles/Vol] 103 mmol/L Normal 98-108 [facility] Comment on above: Performed By: #### L 500.4050, L500.4100 #### [facility] [address] [place], [address] CO2 [Moles/Vol] 22.2 mmol/L Normal 21.0-32.0 [facility] Comment on above: Performed By: #### L 500.4050, L500.4100 #### [facility] [address] [place], [address] Creatinine [Mass/Vol] 0.75 mg/dL Normal 0.70-1.20 [facility] Comment on above: Performed By: #### L 500.4050, L500.4100 #### [facility] [address] [place], [address] GAP 12 Normal 5-15 [facility] Comment on above: Performed By: #### L 500.4050, L500.4100 #### [facility] [address] [place], [address] GFR/1.73 sq M.predicted among non-blacks MDRD (S/P/Bld) [Vol rate/Area] 105 mL/min/{1.73_m2} Normal >60 [facility] Comment on above: Result Comment: mL/m in/1.73m2 CKD-EPI Creatinine Equation (2020) Performed By: #### L 500.4050, L500.4100 #### [facility] [address] [place], [address] Globulin (S) [Mass/Vol] 3.2 g/dL Normal 2.2-4.2 [facility] Comment on above: Performed By: #### L 500.4050, L500.4100 #### [facility] [address] [place], [address] Glucose [Mass/Vol] 101 mg/dL High 70-99 [facility] Comment on above: Performed By: #### L 500.4050, L500.4100 #### [facility] [address] [place], [address] Potassium [Moles/Vol] 4.3 mmol/L Normal 3.3-5.1 [facility] Comment on above: Performed By: #### L 500.4050, L500.4100 #### [facility] [address] [place], [address] Sodium [Moles/Vol] 137 mmol/L Normal 133-145 [facility] Comment on above: Performed By: #### L 500.4050, L500.4100 #### [facility] [address] [place], [address] T PROT 7.5 g/dL Normal 5.9-8.4 [facility] Comment on above: Performed By: #### L 500.4050, L500.4100 #### [facility] [address] [place], [address] Urea nitrogen [Mass/Vol] 10 mg/dL Normal 4-19 [facility] Comment on above: Performed By: #### L 500.4050, L500.4100 #### [facility] [address] [place], [address] Lipid Profileon 02-16-2025 CHOL:HDL 3.95 Normal [facility] Comment on above: Performed By: #### L 500.4050, L500.4100 #### [facility] [address] [place], [address] Cholesterol [Mass/Vol] 157 mg/dL Normal <=200 [facility] Comment on above: Result Comment: Chol esterol level, Desirable <200 mg/dL Borderline high cholesterol 200-239 mg/dL High cholesterol >=240 mg/dL Recommendations of the NCEP Adult Treatment Panel for the following risk-cutoff thresholds for the [place] population. Performed By: #### L 500.4050, L500.4100 #### [facility] [address] [place], [address] Cholesterol in HDL [Mass/Vol] 40 mg/dL Normal [facility] Comment on above: Result Comment: Lia onal Cholesterol Education Program (NCEP) guidelines: <40 mg/dL: Low HDL-cholesterol (major risk factor for CHD) >= 60 mg/dL: High HDL-cholesterol (negative risk factor for CHD) HDL-cholesterol is affected by a number of factors, e.g. smoking, exercise, hormones, sex and age. Performed By: #### L 500.4050, L500.4100 #### [facility] [address] [place], [address] Cholesterol in LDL [Mass/Vol] 90 mg/dL Normal [facility] Comment on above: Result Comment: Bord cojdvt=541-058 mg/dL Higher Osuw=037 mg/dL or greater Friedwald Equation for LDL-C Performed By: #### L 500.4050, L500.4100 #### [facility] [address] [place], [address] Cholesterol in VLDL [Mass/Vol] 28 mg/dL Normal 5-40 [facility] Comment on above: Performed By: #### L 500.4050, L500.4100 #### [facility] [address] [place], [address] Triglyceride [Mass/Vol] 138 mg/dL Normal [facility] Comment on above: Result Comment: The drugs N-Acetylcysteine and Metamizole may falsely depress this assay. Normal range: <150 mg/dL Borderline High: 150-199 mg/dL High: 200-499 mg/dL Very High: >500 mg/dL Performed By: #### L 500.4050, L500.4100 #### [facility] [address] [place], [address] POLYSOMNOGRAM (PSG)/HOME SLE EP APNEA TEST (HSAT)on 02-11-2025 POLYSOMNOGRAM (PSG)/HOME SLEEP APNEA TEST (HSAT) [facility] at [address], [address], [place] [address] ; Home Sleep Apnea Test (HSAT) Study Report Name: MALCOLM MINA Date of Study: 02/11/2025 [facility]#: [id number] Age: 39 (: 1985) ESS: Neck Circ. (cm): 43.0 Height (cm): 171.5 Weight (kg): 126.3 BMI: 42.9 Referring Provider: HILL MIA Mailcode: [id number] Sleep history: The patient is a 39 year old female with a history of snoring, snorting, waking up with dry mouth/sore throat, and mouth breathing. The patient is here for assessment of obstructive sleep apnea. The patient endorses being a habitual prone sleeper. Pertinent medical history: Anxiety, Class III obesity, Depression, Hypertension Medications: Zoloft, Trandate Sleep procedure: PSG unattended Type III, minimum of 4 parameters (26572) Procedure: This study was performed using a Type III ambulatory PSG device and was unattended. The patient was instructed on proper use of the device by a registered vascular technologist. The monitored parameters included heart rate, oxygen saturation, continuous airflow with thermistor and nasal pressure transducer, snoring via nasal pressure transducer, chest and abdominal effort, and body position. ÁNGELA definition: Respiratory event index (ÁNGELA), calculated as respiratory events x 60 / TRT (total recording time in minutes). Note: the apnea hypopnea index has been replaced by the respiratory event index for home sleep apnea test. Since the home sleep apnea test does not measure sleep, the ÁNGELA is most accurate index of respiratory events. The ÁNGELA is a surrogate of the AHI per the AASM Manual for Scoring of Sleep and Associated Events version 3. Apnea definition: The peak signal excursions drop by >90% of pre-event baseline using an oronasal thermal sensor (diagnostic study), PAP device flow (titration study) or an alternative apnea sensor (diagnostic study). The duration of the >90% drop in signal excursion is >=10 seconds. Hypopnea definition: The peak signal excursions drop by >= 30% of pre-event baseline using nasal pressure (diagnostic study), PAP device flow (titration study) or an alternative hypopnea sensor (diagnostic study). The duration of the >= 30% drop in signal excursion is >=10 seconds. There is a greater than or equal to 3% oxygen desaturation from pre-event baseline. RESPIRATORY DATA: The study started at 23:24:14 and ended at 07:09:52 and the total recording time was 466 minutes. By convention, sleep is assumed for the whole recording. Snoring was noted. There was a total of 140 respiratory events. Of these events, the total number of apneas was 0 (0 obstructive, 0 mixed, and 0 central (0.0%)) and 140 hypopneas. The central apnea index (PETEY) was 0.0. The respiratory event index (ÁNGELA) was 18.0 events per hour of study time. The mean oxygen saturation during the study was 95.0%, with a minimum oxygen saturation of 88.0%. The patient spent 0.4 minutes at oxygen saturation measured less than 90% (0.1% of recording time) and 0.1 minutes at oxygen saturation measured at or less than 88% (0.0% of recording time). Time ÁNGELA/AHI Supine 370.0 min 20.4 Off-Supine 96.0 min 8.8 Total 466.0 min 18.0 ECG DATA: The average heart rate was 90 bpm with a range of 64 bpm to 117 bpm. ICSD DIAGNOSIS: Obstructive Sleep Apnea Syndrome [G47.33] IMPRESSION/RECOMMENDAT IONS: 1. This study confirms a diagnosis of at least moderate obstructive sleep apnea exacerbated in supine sleep. 2. The results of this study may represent an underestimation of the degree of obstructive sleep apnea, especially hypopneas, because of the known limitations of HSAT, such as inability to record arousals because EEG is not recorded. 3. Untreated sleep apnea is associated with a variety of consequences including but not limited to hypertension, heart disease, stroke, obesity and daytime sleepiness that can affect normal daytime functioning. 4. PAP therapy is the usual first line therapy. Other treatment options for KARYN may include weight loss, positional therapy, oral appliance, upper airway surgery, upper airway stimulation, treatment of allergies and avoidance of alcohol and sedating medications (such as opioids, benzodiazepines, and muscle relaxers) that can cause respiratory depression. INTERPRETING PHYSICIAN: Gabriela Ludwig MD,[facility] I attest that I have performed epoch by epoch review of the entire raw data and find this study to be technically adequate. Report Digitally Signed By: GABRIELA LUDWIG (02/18/2025 11:48:01 PM) Normal [facility] CBC W Auto Differential pane l (Bld)on 01-18-2025 Basophils (Bld) [#/Vol] [facility] Basophils/100 WBC (Bld) 0.2 % [facility] Differential cell count method Nom (Bld) Auto [facility] Eosinophils (Bld) [#/Vol] 0.20 10*3/uL [facility] Eosinophils/100 WBC (Bld) 2.2 % [facility] Erythrocyte distribution width (RBC) [Ratio] 13.0 % 11.5 - 15.0 % [facility] Hematocrit (Bld) [Volume fraction] 39.4 % 36.0 - 46.0 % [facility] Hemoglobin (Bld) [Mass/Vol] 13.2 g/dL 11.5 - 15.5 g/dL [facility] Immature granulocytes (Bld) [#/Vol] 0.04 10*3/uL [facility] Immature granulocytes/100 WBC (Bld) 0.4 % [facility] Lymphocytes (Bld) [#/Vol] 2.20 10*3/uL [facility] Lymphocytes/100 WBC (Bld) 24.0 % [facility] MCH (RBC) [Entitic mass] 28.1 pg 26.0 - 34.0 pg [facility] MCHC (RBC) [Mass/Vol] 33.5 g/dL 30.5 - 36.0 g/dL [facility] MCV (RBC) [Entitic vol] 83.8 fL 80.0 - 100.0 fL [facility] Monocytes (Bld) [#/Vol] 0.66 10*3/[facility]L [facility] Monocytes/100 WBC (Bld) 7.2 % [facility] Neutrophils (Bld) [#/Vol] 6.03 10*3/uL [facility] Neutrophils/100 WBC (Bld) 66.0 % [facility] Nucleated RBC (Bld) [#/Vol] NINF [facility] Nucleated RBC/100 WBC (Bld) [Ratio] 0.0 % /100 WBC [facility] Platelet mean volume (Bld) [Entitic vol] 10.1 fL 9.0 - 12.7 fL [facility] Platelets (Bld) [#/Vol] 308 10*3/uL [facility] RBC (Bld) [#/Vol] 4.70 10*6/uL 3.90 - 5.2 0 m/uL [facility] WBC (Bld) [#/Vol] 9.15 10*3/uL [facility] Basophils (Bld) [#/Vol] 10*3/uL Normal <0.11 [facility] Comment on above: Order Comment: Speci men Type: BLOOD SPECIMENOrdering Facility: [facility] Address: [address] [place] [address] Performed By: #### 5 7021-8 ####[facility] [id number] [place] [address] [place] Basophils/100 WBC (Bld) 0.2 % Normal [facility] Comment on above: Order Comment: Speci men Type: BLOOD SPECIMENOrdering Facility: [facility] Address: [address] [place] [address] Performed By: #### 5 7021-8 ####[facility] [id number] [place] [address] [place] Differential cell count method Nom (Bld) Auto Normal [facility] Comment on above: Order Comment: Speci men Type: BLOOD SPECIMENOrdering Facility: [facility] Address: [address] [place] [address] Performed By: #### 5 7021-8 ####[facility] [id number] [place] [address] [place] Eosinophils (Bld) [#/Vol] 0.20 10*3/uL Normal <0.46 [facility] Comment on above: Order Comment: Speci men Type: BLOOD SPECIMENOrdering Facility: [facility] Address: [address] [place] [address] Performed By: #### 5 7021-8 ####[facility] [id number] [place] [id number] [place] Eosinophils/100 WBC (Bld) 2.2 % Normal [facility] Comment on above: Order Comment: Speci men Type: BLOOD SPECIMENOrdering Facility: [facility] Address: [address] [place] [address] Performed By: #### 5 7021-8 ####[facility] [id number] [place] [address] [place] Erythrocyte distribution width (RBC) [Ratio] 13.0 % Normal 11.5-15.0 [facility] Comment on above: Order Comment: Speci men Type: BLOOD SPECIMENOrdering Facility: [facility] Address: [address] [place] [address] Performed By: #### 5 7021-8 ####[facility] [id number] [place] [address] [place] Hematocrit (Bld) [Volume fraction] 39.4 % Normal 36.0-46.0 [facility] Comment on above: Order Comment: Speci men Type: BLOOD SPECIMENOrdering Facility: [facility] Address: [address] [place] [address] Performed By: #### 5 7021-8 ####[facility] [id number] [place] [id number] [place] Hemoglobin (Bld) [Mass/Vol] 13.2 g/dL Normal 11.5-15.5 [facility] Comment on above: Order Comment: Speci men Type: BLOOD SPECIMENOrdering Facility: [facility] Address: [address] [place] [address] Performed By: #### 5 7021-8 ####[facility] [id number] [place] [address] [place] Immature granulocytes (Bld) [#/Vol] 0.04 10*3/uL Normal <0.10 [facility] Comment on above: Order Comment: Speci men Type: BLOOD SPECIMENOrdering Facility: [facility] Address: [address] [place] [address] Performed By: #### 5 7021-8 ####[facility] [id number] [place] [address] [place] Immature granulocytes/100 WBC (Bld) 0.4 % Normal [facility] Comment on above: Order Comment: Speci men Type: BLOOD SPECIMENOrdering Facility: [facility] Address: [address] [place] [address] Performed By: #### 5 7021-8 ####[facility] [id number] [place] [address] [place] Lymphocytes (Bld) [#/Vol] 2.20 10*3/uL Normal 1.00-4.00 [facility] Comment on above: Order Comment: Speci men Type: BLOOD SPECIMENOrdering Facility: [facility] Address: [address] [place] [address] Performed By: #### 5 7021-8 ####[facility] [id number] [place] [address] [place] Lymphocytes/100 WBC (Bld) 24.0 % Normal [facility] Comment on above: Order Comment: Speci men Type: BLOOD SPECIMENOrdering Facility: [facility] Address: [address] [place] [address] Performed By: #### 5 7021-8 ####[facility] [id number] [place] [id number] [place] MCH (RBC) [Entitic mass] 28.1 pg Normal 26.0-34.0 [facility] Comment on above: Order Comment: Speci men Type: BLOOD SPECIMENOrdering Facility: [facility] Address: [address] [place] [address] Performed By: #### 5 7021-8 ####[facility] [id number] [address] [address] [place] MCHC (RBC) [Mass/Vol] 33.5 g/dL Normal 30.5-36.0 [facility] Comment on above: Order Comment: Speci men Type: BLOOD SPECIMENOrdering Facility: [facility] Address: [address] [place] [address] Performed By: #### 5 7021-8 ####[facility] [id number] [place] [address] [place] MCV (RBC) [Entitic vol] 83.8 fL Normal 80.0-100.0 [facility] Comment on above: Order Comment: Speci men Type: BLOOD SPECIMENOrdering Facility: [facility] Address: [address] [place] [address] Performed By: #### 5 7021-8 ####[facility] [id number] [place] [address] [place] Monocytes (Bld) [#/Vol] 0.66 10*3/uL Normal <0.87 [facility] Comment on above: Order Comment: Speci men Type: BLOOD SPECIMENOrdering Facility: [facility] Address: [address] [place] [address] Performed By: #### 5 7021-8 ####[facility] [id number] [place] [address] [place] Monocytes/100 WBC (Bld) 7.2 % Normal [facility] Comment on above: Order Comment: Speci men Type: BLOOD SPECIMENOrdering Facility: [facility] Address: [address] [place] [address] Performed By: #### 5 7021-8 ####[facility] [id number] [address] [place] [address] [place] Neutrophils (Bld) [#/Vol] 6.03 10*3/uL Normal 1.45-7.50 [facility] Comment on above: Order Comment: Speci men Type: BLOOD SPECIMENOrdering Facility: [facility] Address: [address] [place] [address] Performed By: #### 5 7021-8 ####[facility] [id number] [address], [place] [address] [place] Neutrophils/100 WBC (Bld) 66.0 % Normal [facility] Comment on above: Order Comment: Speci men Type: BLOOD SPECIMENOrdering Facility: [facility] Address: [address] [place] [address] Performed By: #### 5 7021-8 ####[facility] [id number] [place] [address] [place] Nucleated RBC (Bld) [#/Vol] 10*3/uL Normal <0.01 [facility] Comment on above: Order Comment: Speci men Type: BLOOD SPECIMENOrdering Facility: [facility] Address: [address] [place] [address] Performed By: #### 5 7021-8 ####[facility] [id number] [place] [address] [place] Nucleated RBC/100 WBC (Bld) [Ratio] 0.0 /100 WBC Normal [facility] Comment on above: Order Comment: Speci men Type: BLOOD SPECIMENOrdering Facility: [facility] Address: [address] [place] [address] Performed By: #### 5 7021-8 ####[facility] [id number] [address], [facility] [place] Platelet mean volume (Bld) [Entitic vol] 10.1 fL Normal 9.0-12.7 [facility] Comment on above: Order Comment: Speci men Type: BLOOD SPECIMENOrdering Facility: [facility] Address: [address] [place] [address] Performed By: #### 5 7021-8 ####[facility] [id number] [place] [address] [place] Platelets (Bld) [#/Vol] 308 10*3/uL Normal 150-400 [facility] Comment on above: Order Comment: Speci men Type: BLOOD SPECIMENOrdering Facility: [facility] Address: [address] [place] [address] Performed By: #### 5 7021-8 ####[facility] [id number] [place] [address] [place] RBC (Bld) [#/Vol] 4.70 10*6/uL Normal 3.90-5.20 [facility] Comment on above: Order Comment: Speci men Type: BLOOD SPECIMENOrdering Facility: [facility] Address: [address] [place] [address] Performed By: #### 5 7021-8 ####[facility] [id number] [place] [address] [place] WBC (Bld) [#/Vol] 9.15 10*3/uL Normal 3.70-11.00 [facility] Comment on above: Order Comment: Speci men Type: BLOOD SPECIMENOrdering Facility: [facility] Address: [address] [place] [address] Performed By: #### 5 7021-8 ####[facility] [id number] [place] [id number] [place] CNOVon 01-18-2025 CNOV Office Visit (FAMPWS ) MALCOLM MINA ([id number]) 1985 F Date Time Provider Department 01/18/25 8:00 AM [facility] During your visit today, we recorded the following information about you: Pulse Blood pressure Weight Height 82/minute 138/88 126.3 kg 1.715 m Last Period 12/23/24 Hill Mai MD 01/18/2025 8:30 AM Signed Chief Complaint Patient presents with: Physical Recording using [employer] software for draft documentation of the visit was discussed with the patient/authorized sales representative printing supplies; all questions welcomed and answered. Patient/authorized sales representative printing supplies agreed to proceed HPI Malcolm Mina is a 39 year old female who presents here today for Above Complaints. Patient has been in good health without recent hospitalizations, ER visits. Annual Wellness Exam: - Aletha Mina has had no recent hospitalizations or ED visits. - Feels safe at home. - No tobacco or drug use. - Consumes 1-2 alcoholic drinks, 2-4 times a month. - Planning to receive a flu shot in February at work. Snoring and Daytime Fatigue: - Increased snoring and daytime fatigue. - Sleeps approximately 6 hours per night, sometimes 8 hours on weekends. - Still feels tired even after 8 hours of sleep. Hypertension: - Taking labetalol BID. BP today borderline normal. Asymptomatic on current regimen. - Not checking BP regularly at home. Anxiety: - Managed with Zoloft; finds it helpful. - Missed doses during a recent trip, noticed increased anxiety. - No suicidal ideation or panic attacks. - Not currently attending counseling. Would like information for home. Past medical history, appointments, medications, allergies reviewed. Previous Medical History PAST MEDICAL HISTORY Diagnosis Date Anxiety with depression Carpal tunnel syndrome 2008 Essential hypertension Family history of colon cancer in mother age 62 Hemorrhoids History of colonic polyps 12/30/2022 Morbid obesity (HCC) PMH - PAST MEDICAL HISTORY OF granuloma anular Snoring Previous Surgical History PAST SURGICAL HISTORY Procedure Laterality Date COLONOSCOPY 08/2015 negative/normal COLONOSCOPY 12/19/2022 repeat in 5 years PAST SURGICAL HISTORY OF wisdom teeth SUCTION D AND C 09/25/2018 [facility] Family History FAMILY HISTORY Problem Relation Age of Onset Hypertension Mother Colon Cancer Mother 62 Hypertension Father Heart Father [place] Glaucoma Father Hypertension Brother other (Crohn's Disease) Brother Cancer Maternal Grandmother breast and liver mets Arthritis Maternal Grandmother Heart Maternal Grandfather other (Dementia) Maternal Grandfather Heart Paternal Grandfather No Known Problems Daughter Patient Allergies ALLERGIES Allergen Reactions Lavender (Lavandula* Swelling Current Medications Current Outpatient Medications on File Prior to Visit Medication Sig sertraline (ZOLOFT) 50 mg tablet Take 1 tablet by mouth once daily. labetalol (TRANDATE) 200 mg tablet Take 1 tablet by mouth two times a day. mv-min/iron/folic/calc ium/vitK (WOMEN'S MULTIVITAMIN ORAL) Take by mouth. hppz-zpl-hqq-eliseo-psyl- kelp-pec (FIBER 6) 1,000 mg tab Take 1 tablet by mouth once daily. CALCIUM ORAL Take 2 tablets by mouth once daily. No current facility-administered medications on file prior to visit. Social History SOCIAL HISTORY[1] Review of Symptoms REVIEW OF SYSTEMS GENERAL: No weight loss, malaise or fevers HEENT: Negative for frequent or significant headaches, No changes in hearing or vision, no nose bleeds or other nasal problems NECK: Negative for lumps, goiter, pain and significant neck swelling RESPIRATORY: Negative for cough, hemoptysis, wheezing, COPD, dyspnea or shortness of breath CARDIOVASCULAR: Negative for chest pain, leg swelling, hypertension, CHF or palpitations GI: No nausea, vomiting, or diarrhea : No history of dysuria, frequency or incontinence ESTIMATOR PRINTING: Negative for abnormal vaginal bleeding, abnormal vaginal discharge MUSCULOSKELETAL: Negative for joint pain or swelling, back pain or muscle pain SKIN: Negative for lesions, rash, and itching PSYCH: See HPI HEMATOLOGY/LYMPHOLOGY: Negative for prolonged bleeding, bruising easily or swollen nodes ENDOCRINE: Negative for cold or heat intolerance, polyuria, polydipsia and goiter NEURO: No history of headaches, syncope, paralysis, seizures or tremors EXAM: BP 138/88 Pulse 82 Ht 171.5 cm (5' 7.5) Wt 126.3 kg (278 lb 6.4 oz) LMP 12/23/2024 SpO2 98% BMI 42.96 kg/m? General Appearance: Well appearing, alert, in no acute distress, well-hydrated, well nourished. and Morbidly obese. Skin: Skin color, texture, turgor normal, no suspicious rashes or lesions. Head: Normocephalic, no masses, lesions, tenderness or abnormalities. Eyes: Anicteric sclera. Pupils are (more content not included)... Normal [facility] Comprehensive metabolic 2000 panelon 01-18-2025 Albumin [Mass/Vol] 4.1 g/dL Normal 3.9-4.9 [facility] Comment on above: Order Comment: Speci men Type: BLOOD SPECIMENOrdering Facility: [facility] Address: [address] [place] [address] Performed By: #### 2 4323-8, 29235-1, 6-3 ####[facility] LABIA [id number] [place] [address] [place] ALP [Catalytic activity/Vol] 93 U/L Normal 34-123 [facility] Comment on above: Order Comment: Speci men Type: BLOOD SPECIMENOrdering Facility: [facility] Address: [address] [place] [address] Performed By: #### 2 4323-8, 48252-8, 6-3 ####[facility] [id number] [place] [address] [place] ALT [Catalytic activity/Vol] 19 U/L Normal 7-38 [facility] Comment on above: Order Comment: Speci men Type: BLOOD SPECIMENOrdering Facility: [facility] Address: [address] [place] [address] Performed By: #### 2 4323-8, 69310-8, 6-3 ####[facility] [id number] [place] [id number] [place] Anion gap [Moles/Vol] 10 mmol/L Normal 8-15 [facility] Comment on above: Order Comment: Speci men Type: BLOOD SPECIMENOrdering Facility: [facility] Address: [address] [place] [address] Performed By: #### 2 4323-8, 01187-5, 3016-3 ####[facility] [id number] [address] [address] [place] AST [Catalytic activity/Vol] 18 U/L Normal 13-35 [facility] Comment on above: Order Comment: Speci men Type: BLOOD SPECIMENOrdering Facility: [facility] Address: [address] [place] [address] Performed By: #### 2 4323-8, 97572-8, 3016-3 ####[facility] [id number] [place] [id number] [place] Bilirubin [Mass/Vol] 0.4 mg/dL Normal 0.2-1.3 [facility] Comment on above: Order Comment: Speci men Type: BLOOD SPECIMENOrdering Facility: [facility] Address: [address] [place] [address] Performed By: #### 2 4323-8, 14933-7, 6-3 ####[facility] [id number] [place] [id number] [place] Calcium [Mass/Vol] 9.0 mg/dL Normal 8.5-10.2 [facility] Comment on above: Order Comment: Speci men Type: BLOOD SPECIMENOrdering Facility: [facility] Address: [address] [place] [address] Performed By: #### 2 4323-8, 82484-0, 3016-3 ####[facility] [id number] [address] [address] [place] Chloride [Moles/Vol] 106 mmol/L Normal 98-107 [facility] Comment on above: Order Comment: Speci men Type: BLOOD SPECIMENOrdering Facility: [facility] Address: [address] [place], [place] [address] Performed By: #### 2 4323-8, 76195-3, 3016-3 ####[facility] [id number] [address] [address] [place] CO2 [Moles/Vol] 21 mmol/L Low 22-30 [facility] Comment on above: Order Comment: Speci men Type: BLOOD SPECIMENOrdering Facility: [facility] Address: [address] [place] [address] Performed By: #### 2 4323-8, 14903-5, 6-3 ####[facility] [id number] [address] [address] [place] Creatinine [Mass/Vol] 0.71 mg/dL Normal 0.58-0.96 [facility] Comment on above: Order Comment: Speci men Type: BLOOD SPECIMENOrdering Facility: [facility] Address: [address] [place] [address] Performed By: #### 2 4323-8, 29095-8, 3 ####[facility] [id number] [address] [address] [place] eGFRcr SerPlBld CKD-EPI 2020 112 mL/min/1.73m??? Normal >=60 [facility] Comment on above: Order Comment: Speci men Type: BLOOD SPECIMENOrdering Facility: [facility] Address: [address] [place] [address] Result Comment: Tracy mated Glomerular Filtration Rate (eGFR) is calculated using the 2020 CKD-EPI creatinine equation. This equation utilizes serum creatinine, sex, and age as parameters. The creatinine assay has traceable calibration to isotope dilution-mass spectrometry. Refer to KDIGO guidelines for clinical interpretation. In patients with unstable renal function, e.g. those with acute kidney injury, the eGFR may not accurately reflect actual GFR. Performed By: #### 2 4323-8, 25382-9, 6-3 ####[facility] [id number] [address] [address] [place] Glucose [Mass/Vol] 118 mg/dL High 74-99 [facility] Comment on above: Order Comment: Speci men Type: BLOOD SPECIMENOrdering Facility: [facility] Address: [address] [place] [address] Result Comment: The [place] Diabetes Association (ADA) provides guidance for cutoff values for fasting glucose and random glucose. The ADA defines fasting as no caloric intake for at least 8 hours. Fasting plasma glucose results between 100 to 125 mg/dL indicate increased risk for diabetes (prediabetes). Fasting plasma glucose results greater than or equal to 126 mg/dL meet the criteria for diagnosis of diabetes. In the absence of unequivocal hyperglycemia, results should be confirmed by repeat testing. In a patient with classic symptoms of hyperglycemia or hyperglycemic crisis, random plasma glucose results greater than or equal to 200 mg/dL meet the criteria for diagnosis of diabetes. Reference: Standards of Medical Care in Diabetes 2016, [place] [employer] Association. Diabetes Care. 2016.39(Suppl 1). Performed By: #### 2 4323-8, 74566-7, 3015-3 ####[facility] [id number] [place] [address] [place] Potassium [Moles/Vol] 4.3 mmol/L Normal 3.7-5.1 [facility] Comment on above: Order Comment: Speci men Type: BLOOD SPECIMENOrdering Facility: [facility] Address: [address] [place], [place] [address] Performed By: #### 2 4323-8, 14608-8, 3015-3 ####[facility] [id number] [place] [id number] [place] Protein [Mass/Vol] 6.9 g/dL Normal 6.3-8.0 [facility] Comment on above: Order Comment: Speci men Type: BLOOD SPECIMENOrdering Facility: [facility] Address: [address] [place], [place] [address] Performed By: #### 2 4323-8, 16842-7, 3015-3 ####[facility] [id number] [place] [id number] [place] Sodium [Moles/Vol] 137 mmol/L Normal 136-144 [facility] Comment on above: Order Comment: Jean Marie zimmer Type: BLOOD SPECIMENOrdering Facility: [facility] Address: [address] [place] [address] Performed By: #### 2 4323-8, 64246-1, 3016-3 ####[facility] [id number] [place] [address] [place] Urea nitrogen [Mass/Vol] 11 mg/dL Normal 7-21 [facility] Comment on above: Order Comment: Jean Marie zimmer Type: BLOOD SPECIMENOrdering Facility: [facility] Address: [address] [place] [address] Performed By: #### 2 4323-8, 91131-7, 3016-3 ####[facility] [id number] [place] [address] [place] HbA1c (Bld)on 01-18-2025 Average glucose Estimated from glycated hemoglobin (Bld) [Mass/Vol] 123 mg/dL Normal [facility] Comment on above: Order Comment: Jean Marie zimmer Type: BLOOD SPECIMENOrdering Facility: [facility] Address: [address] [place] [address] Result Comment: eAG: (Estimated average glucose) is a calculated value from HgbA1c and is sales representative printing supplies of the average blood glucose level in the last 2-3 month period. Performed By: #### 5 5454-3 ####[facility] [id number] [place] [address] [place] HbA1c (Bld) [Mass fraction] 5.9 % High 4.3-5.6 [facility] Comment on above: Order Comment: Jean Marie zimmer Type: BLOOD SPECIMENOrdering Facility: [facility] Address: [address] [place] [address] Result Comment: [place] Diabetes Association guidelines indicate that patients with HgbA1c in the range 5.7-6.4% are at increased risk for development of diabetes, and intervention by lifestyle modification may be beneficial. HgbA1c greater or equal to 6.5% is considered diagnostic of diabetes. Performed By: #### 5 5454-3 ####[facility] [id number] [facility] [address] [address] [place] Lipid 1996 panelon 5 Cholesterol [Mass/Vol] 150 mg/dL Normal <200 [facility] Comment on above: Order Comment: Speci men Type: BLOOD SPECIMENOrdering Facility: [facility] Address: [address] [place] [address] Result Comment: <200 mg/dL, Desirable 200-239 mg/dL, Borderline high >239 mg/dL, High Performed By: #### 2 4323-8, 73678-2, 3016-3 ####[facility] [id number] [place] [id number] [place] Cholesterol in HDL [Mass/Vol] 37 mg/dL Low >39 [facility] Comment on above: Order Comment: Speci men Type: BLOOD SPECIMENOrdering Facility: [facility] Address: [address] [place] [address] Result Comment: 40-5 9 mg/dL, Acceptable >59 mg/dL, High: Negative risk factor for coronary heart disease <40 mg/dL, Low: Positive risk factor for coronary heart disease Performed By: #### 2 4323-8, 33869-8, 3016-3 ####[facility] LABCLIA [id number] [facility] [address] [place] [address] [facility] [place] Cholesterol in LDL [Mass/Vol] 94 mg/dL Normal <100 [facility] Comment on above: Order Comment: Dineshi men Type: BLOOD SPECIMENOrdering Facility: [facility] Address: [address] [place] [address] Result Comment: <100 mg/dL, Optimal 100-129 mg/dL, Near optimal/above optimal 130-159 mg/dL, Borderline high 160-189 mg/dL, High >189 mg/dL, Very high Secondary prevention optimal LDL Cholesterol levels are recommended to be <70 mg/dL LDL cholesterol is calculated using the Stinson-NIH equation. Performed By: #### 2 4323-8, 04008-9, 6-3 ####[facility] LABCLIA [id number] [address] [place] [address] [place] Cholesterol in LDL/Cholesterol in HDL [Mass ratio] 2.54 {ratio} High <2.54 [facility] Comment on above: Order Comment: Speci men Type: BLOOD SPECIMENOrdering Facility: [facility] Address: [address] [place] [address] Result Comment: Claudia cabrera: 1. National Cholesterol Education Program ATP III Guideline At-A-Glance Quick Desk Reference: National Heart, Lung, and Blood [place]. National Institutes of Health. 2001: NIH Publication No. 01-3305. 2. An International Atherosclerosis Society position paper: global recommendations for the management of dyslipidemia: executive summary, Atherosclerosis. 2014: 232(2):410-413. Performed By: #### 2 4323-8, 99373-8, 3015-3 ####[facility] LABIA [id number] [address] [address] [place] Cholesterol in VLDL [Mass/Vol] 16 mg/dL Normal <30 [facility] Comment on above: Order Comment: Speci men Type: BLOOD SPECIMENOrdering Facility: [facility] Address: [address] [place] [address] Performed By: #### 2 4323-8, 80265-5, 3015-3 ####[facility] LABIA [id number] [facility] [id number] [address] [place] Cholesterol non HDL [Mass/Vol] 113 mg/dL Normal <130 [facility] Comment on above: Order Comment: Speci men Type: BLOOD SPECIMENOrdering Facility: [facility] Address: [address] [place] [address] Result Comment: <130 mg/dL, Optimal 130-159 mg/dL, Near optimal/above optimal 160-189 mg/dL, Borderline high 190-219 mg/dL, High >219 mg/dL, Very high Secondary prevention optimal non HDL Cholesterol levels are recommended to be <100 mg/dL Performed By: #### 2 4323-8, 49083-5, 3015-3 ####[facility] LABCLIA [id number] [facility] [id number], [place] [address] [place] Cholesterol.total/C holesterol in HDL [Mass ratio] 4.05 {ratio} Normal <5.10 [facility] Comment on above: Order Comment: Speci men Type: BLOOD SPECIMENOrdering Facility: [facility] Address: [address] [place] [address] Performed By: #### 2 4323-8, 45669-9, 3015-07 ####[facility] LABCLIA [id number] [facility] [address] [place] [address] [place] FASTING TIME 11 hrs Normal [facility] Comment on above: Order Comment: Speci men Type: BLOOD SPECIMENOrdering Facility: [facility] Address: [address] [place] [place] [id number] Performed By: #### 2 4323-8, 17957-5, 3015-07 ####[facility] LABCLIA [id number] [facility] [address] [place] [address] [place] Triglyceride [Mass/Vol] 100 mg/dL Normal <150 [facility] Comment on above: Order Comment: Speci men Type: BLOOD SPECIMENOrdering Facility: [facility] Address: [address] [place] [place] [id number] Result Comment: <150 mg/dL, Normal 150-199 mg/dL, Borderline high 200-499 mg/dL, High >499 mg/dL, Very high Performed By: #### 2 4323-8, 95885-0, 3015-07 ####[facility] LABCLIA [id number] [facility] [id number], [place] [address] [place] TSH SerPl-aCncon 01-18-2025 TSH Qn 2.920 m[IU]/L Normal 0.270-4.200 [facility] Comment on above: Order Comment: Speci men Type: BLOOD SPECIMENOrdering Facility: [facility] Address: [address] [place] [id number] Result Comment: If t he patient is , TSH reference range varies by gestational period: First Trimester (weeks 9-12): 0.180-2.990 mIU/L Second Trimester: 0.110-3.980 mIU/L Third Trimester: 0.480-4.710 mIU/L Corby Gautam et al. A Practical Approach for the Verifications and Determination of Site- and Trimester-Specific Reference Intervals for Thyroid Function tests in . Thyroid, 2019:29:3:412-420. Gagan Gant, et al. 2017 Guidelines of the [place] Thyroid Association for the Diagnosis and Management of Thyroid Disease during and the . Thyroid, 2017:27:3:315-389. Performed By: #### 2 4323-8, 30561-6, 3016-3 ####[facility] LABCLIA [id number] [facility]IC[facility] [address] [place] [facility] CNOVon 11-16-2024 CNOV Office Visit (FAMPWS ) MALCOLM MINA ([id number]) 1985 F Date Time Provider Department 11/16/24 11:00 AM HILL MAI FAMPWS During your visit today, we recorded the following information about you: Pulse Blood pressure Weight Height 93/minute 130/90 126.1 kg 1.715 m Hill Mai MD 11/16/2024 11:29 AM Signed Chief Complaint Patient presents with: Rash: [facility] F/U 11/10/24. Seen for itchy rash. Suspect poison aishwarya. Was outside weed eating 2 days prior to rash. Completed prednisone taper today. New spots are appearing. Presented first on neck/jaw line. Rash is all over. Recording using [employer] software for draft documentation of the visit was discussed with the patient/authorized sales representative printing supplies; all questions welcomed and answered. Patient/authorized sales representative printing supplies agreed to proceed HPI Malcolm Mina is a 39 year old female who presents here today for Above Complaints. Pruritic Rash: - Developed after exposure to poison oak/aishwarya while weed eating a ditch. - Initially presented on the neck, prompting an urgent care visit on 11/10. - Treated with a 9-day prednisone taper (10 m tablets for 3 days, then 2 tablets for 3 days, then 1 tablet for 3 days). - Noted improvement in pruritus and rash during higher doses of prednisone. - New erythematous, raised lesions have appeared on the abdomen, neck, arms, and feet over the past 2-3 days. - Denies further exposure to poison oak/aishwarya. - Aletha has washed towels and bedding; no changes in soap due to known lavender allergy. - Family history of severe reactions to poison oak/aishwarya in mother. - Denies fever, chills, or purulent drainage. Past medical history, appointments, medications, allergies reviewed. Previous Medical History PAST MEDICAL HISTORY Diagnosis Date Anxiety with depression Carpal tunnel syndrome 2008 Essential hypertension Family history of colon cancer in mother age 62 Hemorrhoids History of colonic polyps 12/30/2022 Morbid obesity (HCC) PMH - PAST MEDICAL HISTORY OF granuloma anular Previous Surgical History PAST SURGICAL HISTORY Procedure Laterality Date COLONOSCOPY 08/2015 negative/normal COLONOSCOPY 12/19/2022 repeat in 5 years PAST SURGICAL HISTORY OF wisdom teeth SUCTION D AND C 09/25/[facility] Family History FAMILY HISTORY Problem Relation Age of Onset Hypertension Mother Colon Cancer Mother 62 Hypertension Father Heart Father [place] Glaucoma Father Hypertension Brother other (Crohn's Disease) Brother Cancer Maternal Grandmother breast and liver mets Arthritis Maternal Grandmother Heart Maternal Grandfather other (Dementia) Maternal Grandfather Heart Paternal Grandfather No Known Problems Daughter Patient Allergies ALLERGIES Allergen Reactions Lavender (Lavandula* Swelling Current Medications Current Outpatient Medications on File Prior to Visit Medication Sig predniSONE (DELTASONE) 10 mg tablet Take 4 tablets by mouth once daily for 3 days, THEN 2 tablets once daily for 3 days, THEN 1 tablet once daily for 1 day. sertraline (ZOLOFT) 50 mg tablet Take 1 tablet by mouth once daily. labetalol (TRANDATE) 200 mg tablet Take 1 tablet by mouth two times a day. mv-min/iron/folic/calc ium/vitK (WOMEN'S MULTIVITAMIN ORAL) Take by mouth. exwx-gnn-gpd-eliseo-psyl- kelp-pec (FIBER 6) 1,000 mg tab Take 1 tablet by mouth once daily. CALCIUM ORAL Take 2 tablets by mouth once daily. No current facility-administered medications on file prior to visit. Social History Social History Tobacco Use Smoking status: Never Smokeless tobacco: Never Vaping Use Vaping status: Never Used Substance Use Topics Alcohol use: Yes Comment: occassionally, not while Drug use: Never Review of Symptoms REVIEW OF SYSTEMS See HPI EXAM: BP 130/90 Pulse 93 Ht 171.5 cm (5' 7.5) Wt 126.1 kg (278 lb) LMP 07/28/2024 (Exact Date) SpO2 97% BMI 42.90 kg/m? General Appearance: Well appearing, alert, in no acute distress, well-hydrated, well nourished.. Skin: scattered raised red rash on forearms, upper abdomen, lower legs and feet bilaterally without cellulitis, vesicles, or pustules. Consistent with poison aishwarya. Health Maintenance List Hepatitis C Screening Never done Hepatitis B Vaccine(1 of 3 - 19+ 3-dose series) Never done Covid-19 Vaccine( season) due on 01/04/2024 Influenza Vaccine(1) due on 01/03/2025 Annual PCP Team Chronic Disease Visit due on 11/16/2025 Cervical Cancer Screening due on 10/23/2026 Colorectal Cancer Screening due on 12/20/2027 DTaP,Tdap,Td Vaccine(8 - Td or Tdap) due on 05/07/2029 HIV Screening Completed 1. Poison aishwarya dermatitis (L23.7) - Persistent pruritic, erythematous, raised rash with new lesions developing despite completion of initial prednisone taper (10 m ta (more content not included)... Normal [facility] CNOVon 11-10-2024 CNOV Office Visit (WOUCA) MALCOLM MINA ([id number]) 1985 F Date Time Provider Department 11/10/24 1:15 PM GODFREY BECK During your visit today, we recorded the following information about you: Temperature Pulse Respiration Blood pressure 98 degrees 79/minute 16/minute 110/76 Weight 128.3 kg Godfrey Beck MD 11/10/2024 12:43 PM Signed [facility] Subjective Malcolm Mina is a 39 year old female. Patient presents with: poison aishwarya: All over x 2 days Rash: Location: arms, torso, neck/jaw, fingers Duration: 3 days Pruritis: Yes Pain: No Change: spreading Bleeding/ulceration/bl ister/pustule: red patches Contacts with rash: No Exposure: No new soaps, detergents, fabric softeners, lotions. Outdoor exposure: weed eating 2 days before rash. Change in medications: No. Recent illness: No. Treatment: calamine Review of Systems Objective BP 110/76 Pulse 79 Temp 36.7 ?C (98 ?F) (Tympanic) Resp 16 Wt 128.3 kg (282 lb 13.6 oz) LMP 07/28/2024 (Exact Date) SpO2 98% BMI 43.65 kg/m? Physical Exam Constitutional: General: She is not in acute distress. Skin: Comments: Slightly raised erythema and papules and patches on the arms, neck below the jaw, lateral and anterior mid torso. Sparse on the fingers. Neurological: Mental Status: She is alert. Latest Ref Rng 10/10/2023 Hemoglobin A1C 4.3 - 5.6 % 6.1 (H) {ASSESSMENT/PLAN: 1. Contact dermatitis due to plant - ICD9: 692.6, ICD10: L25.5 (primary diagnosis) - Oral Steriod tx -Prednisone taper. Previously tolerated without side effect. Patient cautioned on hyperglycemic effect of oral steroid. Risk outweighs benefit due to rash extending to the lower face. - discussed skin care of rash - follow up if symptoms persist or worsen. - PREDNISONE 10 MG TABLET 2. Impaired fasting glucose - ICD9: 790.21, ICD10: R73.01 Godfrey Beck MD Differential Diagnoses - Allergic contact dermatitis due to plants is more likely for the following reason(s): suggested by HANDP Procedures Allergies As of Date: 11/10/2024 Noted Allergy Reaction LAVENDER (LAVANDULA ANGUSTIFOLIA) 07/28/2019 7 - Swelling Date Reviewed: 11/10/2024 Reviewed by: Yvonne Berry LPN - Fully Assessed Reason for Visit: poison aishwarya [Other] Cmt: All over x 2 days Primary Visit Diagnosis:Contact dermatitis due to plant [L25.5] Other Visit Diagnosis:Impaired fasting glucose [R73.01] Order(s):predniSONE (DELTASONE) 10 mg tabletTake 4 tablets by mouth once daily for 3 days, THEN 2 tablets once daily for 3 days, THEN 1 tablet once daily for 1 day.Disp: 19 tabletRfl: 0 Prescriptions as of 11/10/2024 - predniSONE (DELTASONE) 10 mg tablet Take 4 tablets by mouth once daily for 3 days, THEN 2 tablets once daily for 3 days, THEN 1 tablet once daily for 1 day. - sertraline (ZOLOFT) 50 mg tablet Take 1 tablet by mouth once daily. - labetalol (TRANDATE) 200 mg tablet Take 1 tablet by mouth two times a day. - levonorgestrel (MIRENA) 20 mcg/24 hours (6 yrs) 52 mg IUD 1 Each by INTRAUTERINE route one time only for 1 dose. - mv-min/iron/folic/calc ium/vitK (WOMEN'S MULTIVITAMIN ORAL) Take by mouth. - vqcv-rvq-xow-eliseo-psyl- kelp-pec (FIBER 6) 1,000 mg tab Take 1 tablet by mouth once daily. - CALCIUM ORAL Take 2 tablets by mouth once daily. 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 09/09/2019 Elevated blood pressure affecting , an*02/11/2019 09/09/2019 Low-lying placenta [O44.40] 03/11/2019 06/03/2019 Abnormal glucose affecting [O99.810] 05/10/2019 09/09/2019 Group beta Strep positive [B95.1] 07/06/2019 09/09/2019 Anxiety with depression [F41.8] Morbid obesity with BMI of 40.0-44.9, adult (HC* Essential hypertension [I10] History of colonic polyps [Z86.0100] 12/30/2022 Prescriptions ordered this encounter Disp Refills Start End PREDNISONE 10 MG TABLET 19 t* 0 11/10/2024 11/17/2024 Route: PO Sig: Take 4 tablets by mouth once daily for 3 days, THEN 2 tablets once daily for 3 days, THEN 1 tablet once daily for 1 day. Level of Service: OFFICE/OUTPATIENT ESTABLISHED [facility] 30 MIN [86705] Encounter Status:Closed by GODFREY BECK on 11/10/24 [facility] Pan 08-12-2024 CNOV Office Visit (UCWSTR ) MALCOLM MINA ([id number]) 1985 F Date Time Provider Department 08/12/24 5:15 PM COURTNEY LEWIS WSTR During your visit today, we recorded the following information about you: Temperature Pulse Respiration Blood pressure 97 degrees 95/minute 20/minute 135/95 Weight Last Period 129 kg 07/28/24 Lewis Courtney, TRICIA.POWER PRESS TENDER 08/12/2024 5:48 PM Signed [facility] Subjective Malcolm Mina is a 38 year old female. Patient presents with: Ear Pain: R ear pain and pressure, x 2 days Nasal congestion/ cold over the weekend 38 year old female with PMH HTN and anxiety presents for illness. Acute onset one week ago +cough +congestion +nasal drainage +sinus Right ear pain over past 2 days +feeling of pressure Denies SOB Denies dyspnea Denies abdominal pain Denies N/V/D Has used cold medicine Tylenol Denies tobacco usage The history is provided by the patient. No language tutor was used. Ear Pain This is a new problem. The current episode started in the past 7 days. The problem occurs constantly. The problem has been unchanged. Associated symptoms include congestion and coughing. Pertinent negatives include no abdominal pain, anorexia, arthralgias, change in bowel habit, chest pain, chills, diaphoresis, fatigue, fever, headaches, joint swelling, myalgias, nausea, neck pain, numbness, rash, sore throat, swollen glands, urinary symptoms, vertigo, visual change, vomiting or weakness. Nothing aggravates the symptoms. Treatments tried: cold medicine. The treatment provided no relief. PAST MEDICAL HISTORY Diagnosis Date Anxiety with depression Carpal tunnel syndrome 2008 Essential hypertension Family history of colon cancer in mother age 62 Hemorrhoids History of colonic polyps 12/30/2022 Morbid obesity (HCC) PMH - PAST MEDICAL HISTORY OF granuloma anular PAST SURGICAL HISTORY Procedure Laterality Date COLONOSCOPY 08/2015 negative/normal COLONOSCOPY 12/19/2022 repeat in 5 years PAST SURGICAL HISTORY OF wisdom teeth SUCTION D AND C 09/25/2018 [facility] ALLERGIES Lavender (Lavandula Angustifolia) MEDICATIONS sertraline (ZOLOFT) 50 mg tablet Take 1 tablet by mouth once daily. labetalol (TRANDATE) 200 mg tablet Take 1 tablet by mouth two times a day. mv-min/iron/folic/calc ium/vitK (WOMEN'S MULTIVITAMIN ORAL) Take by mouth. qmqq-ifl-dbm-eliseo-psyl- kelp-pec (FIBER 6) 1,000 mg tab Take 1 tablet by mouth once daily. CALCIUM ORAL Take 2 tablets by mouth once daily. amoxicillin-clavulanat e potassium (AUGMENTIN) 875-125 mg per tablet Take 1 tablet by mouth two times a day for 7 days. levonorgestrel (MIRENA) 20 mcg/24 hours (6 yrs) 52 mg IUD 1 Each by INTRAUTERINE route one time only for 1 dose. (Patient not taking: Reported on 08/12/2024) FAMILY HISTORY Problem Relation Age of Onset Hypertension Mother Colon Cancer Mother 62 Hypertension Father Heart Father [place] Glaucoma Father Hypertension Brother other (Crohn's Disease) Brother Cancer Maternal Grandmother breast and liver mets Arthritis Maternal Grandmother Heart Maternal Grandfather other (Dementia) Maternal Grandfather Heart Paternal Grandfather No Known Problems Daughter Social History Tobacco Use Smoking status: Never Smokeless tobacco: Never Vaping Use Vaping status: Never Used Substance Use Topics Alcohol use: Yes Comment: occassionally, not while Drug use: Never Review of Systems Constitutional: Negative for chills, diaphoresis, fatigue and fever. HENT: Positive for congestion and ear pain. Negative for sore throat. Eyes: Negative for pain, discharge, redness and itching. Respiratory: Positive for cough. Cardiovascular: Negative for chest pain. Gastrointestinal: Negative for abdominal pain, anorexia, change in bowel habit, nausea and vomiting. Musculoskeletal: Negative for arthralgias, joint swelling, myalgias and neck pain. Skin: Negative for rash. Allergic/Immunologic: Negative for environmental allergies, food allergies and immunocompromised state. Neurological: Negative for dizziness, vertigo, facial asymmetry, weakness, numbness and headaches. Hematological: Negative for adenopathy. Does not bruise/bleed easily. Psychiatric/Behavioral : Negative for agitation and behavioral problems. Objective BP 135/95 Pulse 95 Temp 36.1 ?C (97 ?F) Resp 20 Wt 129 kg (284 lb 6.3 oz) LMP 07/28/2024 (Exact Date) SpO2 98% BMI 43.88 kg/m? Physical Exam Vitals and nursing note reviewed. Constitutional: General: She is not in acute distress. Appearance: Normal appearance. She is normal weight. She is not ill-appearing, toxic-appearing or diaphoretic. HENT: Head: Normocephalic and atraumatic. Right Ear: Ear canal and external ear normal. Left Ear: Ear canal and external ear normal. (more content not included)... Normal [facility] CNOVon 03-09-2024 CNOV Office Visit (OBGYWM ) MALCOLM MINA ([id number]) 1985 F Date Time Provider Department 03/09/24 4:00 PM SADIA NATARAJAN OBGYWM During your visit today, we recorded the following information about you: Blood pressure Weight Height 136/80 124.9 kg 1.715 m Sadia Natarajan MD 03/09/2024 5:15 PM Signed C Application Developer offered: Patient declinesSugar Pompa is a 38 year old who presents for an annual gynecologic exam without complaints. Menses: no menses - Mirena IUD. 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 PAST MEDICAL HISTORY Diagnosis Date Anxiety with depression Carpal tunnel syndrome 2009 Essential hypertension Family history of colon cancer in mother age 62 Hemorrhoids History of colonic polyps 12/30/2022 Morbid obesity (HCC) PMH - PAST MEDICAL HISTORY OF granuloma anular PAST SURGICAL HISTORY Procedure Laterality Date COLONOSCOPY 08/2015 negative/normal COLONOSCOPY 12/19/2022 repeat in 5 years PAST SURGICAL HISTORY OF wisdom teeth SUCTION D AND C 09/25/2018 [facility] FAMILY HISTORY Problem Relation Age of Onset Hypertension Mother Colon Cancer Mother 62 Hypertension Father Heart Father [place] Glaucoma Father Hypertension Brother other (Crohn's Disease) Brother Cancer Maternal Grandmother breast and liver mets Arthritis Maternal Grandmother Heart Maternal Grandfather other (Dementia) Maternal Grandfather Heart Paternal Grandfather No Known Problems Daughter SOCIAL HISTORY Social History Tobacco Use Smoking status: Never Smokeless tobacco: Never Vaping Use Vaping status: Never Used Substance Use Topics Alcohol use: Yes Comment: occassionally, not while Drug use: Never REVIEW OF SYSTEMS Abdomen: No abdominal pain, nausea, vomiting, diarrhea, or constipation. No bloating, early satiety, indigestion, or increased flatulence. Bladder: No dysuria, gross hematuria, urinary frequency, urinary urgency, or incontinence. Breast: No breast lumps, nipple d/c, overlying skin changes, redness or skin retraction. Allergies and current medication updated:Yes SENSITIVE EXAM: The sensitive examination was discussed with the Patient or Patient's Authorized [employer]. As applicable, any other physician, advance practice provider, medical student, or other health professional student that will be observing or involved in the sensitive examination for educational or training purposes was discussed with the Patient or Authorized [employer]. The Patient or Authorized [employer] has agreed to proceed with the sensitive examination. (Sensitive examination includes inspection and/or palpation of the breasts, pelvis, prostate and anorectal regions). EXAM: BP 136/80 Ht 5' 7.5 (1.72m) Wt 275 lb 6.4 oz (124.9kg) BMI 42.47 kg/(m2). GENERAL: pleasant, female in no apparent distress BREAST: soft, non-tender, symmetric, no dominant mass, normal nipple-areolar complex, no lymphadenopathy, and no nipple discharge CHEST: Normal inspiratory effort ABDOMEN: soft, non-tender, and no masses PELVIC: external genitalia normal, normal Bartholin's glands, urethra, Yetter's glands, no vulvar lesions, no cervical lesions, good vaginal support, physiologic discharge present, normal appearing perineal body and perianal region BIMANUAL: uterus normal size, shape and consistency, no adnexal masses, and non-tender RECTOVAGINAL: deferred. NEURO: alert and oriented x3,exam grossly non-focal EXTREMITIES: normal ASSESSMENT/PLAN: 1) Health maintenance: Pap/HPV up to date. Nutrition, exercise and routine health maintenance exams reviewed. 2) Contraception: none 3) Follow up one year or sooner as needed MD Aletha Montero presents for removal of IUD due to desire for . UNIVERSAL PROTOCOL / SAFETY CHECKLIST Procedure to be Performed: IUD Removal Sign In: A Moment of CARE was completed. Personnel directly involved with the procedure wore the appropriate PPE (Personal Protective Equipment). Patient/Surrogate Stated/Verified: PATIENT VERIFIED(optional for EMERGENT procedures): Patient name, Date of , Relevant allergies, and The intended procedure Time Out Communication: Intended patient and procedure match the source documents. Consent documented and matches the intended procedure. Sign Out: SIGN OUT (optional for EMERGENT procedures): No specimen collected. (more content not included)... [facility] 12-22-2022 CNPN Telephone (MEPRAD) PATRICIAMALCOLM MARES ([id number]) 1985 F Date Time Provider Department 12/22/22 JARROD SOLORZANO During your visit today, we recorded the following information about you: Jarrod Solorzano MD 12/22/2022 10:15 AM Signed FOLLOW UP ENDOSCOPY - RESULTS AND RECOMMENDATIONS NAME: Malcolm Mina CLINIC NO.: [id number] : 1985 DATE: December 22, 2022 PRIMARY CARE PROVIDER: Hill Mai MD Malcolm Mina is a patient referred for endoscopy for a maternal history of colon cancer. I performed lower endoscopy on December 19, 2022. The patient was found to have: Lower Endoscopy Impression: - Two diminutive polyps in the rectum and in the ascending colon, removed with a cold biopsy forceps. Resected and retrieved. - The examination was otherwise normal on direct and retroflexion views. Pathology demonstrated: FINAL DIAGNOSIS A. Colon, ascending, polyp, biopsy: - Sessile serrated polyp. B. Rectum, polyp, biopsy: - Hyperplastic polyp and focal prominent lymphoid aggregate. IMPRESSION: small serrated polyp - family history of colon cancer PLAN: INSTRUCTIONS FOLLOWING A POLYP FOUND AT COLONOSCOPY You were found to have a small serrated polyp. I recommend you undergo repeat endoscopy in 5 years. If you note bleeding, change in bowel habits, or other suspicious colon related symptoms before that time, those symptoms should be evaluated as necessary. If you have any difficulties or concerns, you should contact our office immediately. The patient is instructed to follow-up with your primary care provider I have instructed my staff to forward the above information to the patient and to the appropriate providers Allergies As of Date: 12/22/2022 Noted Allergy Reaction LAVENDER (LAVANDULA ANGUSTIFOLIA) 07/28/2019 7 - Swelling Date Reviewed: 12/19/2022 Reviewed by: Sophie Carroll RN - Fully Assessed Reason for Visit: Results [95] Prescriptions as of 12/22/2022 - sertraline (ZOLOFT) 50 mg tablet Take 1 tablet by mouth once daily. - labetalol (TRANDATE) 200 mg tablet Take 1 tablet by mouth twice daily. - fluocinonide (LIDEX) 0.05 % cream Apply to affected skin trunk lower extremities twice a day x 2wks then twice weekly prn flare - levonorgestrel (MIRENA) 20 mcg/24 hours (6 yrs) 52 mg IUD 1 Each by INTRAUTERINE route one time only for 1 dose. - mv-min/iron/folic/calc ium/vitK (WOMEN'S MULTIVITAMIN ORAL) Take by mouth. - chgh-hcw-cwp-eliseo-psyl- kelp-pec (FIBER 6) 1,000 mg tab Take 1 tablet by mouth once daily. - CALCIUM ORAL Take 2 tablets by mouth once daily. 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 09/09/2019 Elevated blood pressure affecting , an*02/11/2019 09/09/2019 Low-lying placenta [O44.40] 03/11/2019 06/03/2019 Abnormal glucose affecting [O99.810] 05/10/2019 09/09/2019 Group beta Strep positive [B95.1] 07/06/2019 09/09/2019 Anxiety with depression [F41.8] Morbid obesity with BMI of 40.0-44.9, adult (HC* Essential hypertension [I10] Encounter Status:Closed by JARROD SOLORZANO on 12/22/22 [facility] SURGICAL PATHOLOGYon 023 Case Report Surgical Pathology Report Case: [id number] Authorizing Provider: Jarrod Solorzano MD Collected: 12/19/2022 09:28 AM Ordering Location: Ambulatory Surgery Received: 12/19/2022 03:34 PM Pathologist: Jacqueline Wade MD Specimens: A) - ASCENDING COLON POLYP B) - RECTAL POLYP [facility] FINAL DIAGNOSIS A. Colon, ascending, polyp, biopsy: - Sessile serrated polyp. B. Rectum, polyp, biopsy: - Hyperplastic polyp and focal prominent lymphoid aggregate. [facility] Gross Description A. ASCENDING COLON POLYP Received in formalin is one piece of perez, soft tissue measuring 0.8 x 0.3 x 0.2 cm. Totally submitted in one cassette. B. RECTAL POLYP Received in formalin is one piece of perez, soft tissue measuring 0.6 x 0.3 x 0.2 cm. Totally submitted in one cassette. Gross examination performed at [facility], [address] [place], [place] [id number] J 12/20/2022 12:32 AM [facility] Performing Lab Diagnostic interpretation performed at [facility], [address] [place], [place] [id number] CLIA# [id number] Sap Hana Developer: Afshin Soliman M.D. [facility] COLONOSCOPY SCREENINGon 12-03 [facility] Vital Signs Date Time Vital Sign Value Performing Clinician Shine crocker 01-18-2025 07:50-0400 Body height 171.5 cm Hill Mai MD Work Phone: [facility] 01-18-2025 07:50-0400 Body mass index (BMI) [Ratio] 42.96 kg/m2 Hill Mai MD Work Phone: [facility] 01-18-2025 07:50-0400 Body weight 126.28 kg Hill Mai MD Work Phone: [facility] 01-18-2025 07:50-0400 Diastolic blood pressure 88 mm[Hg] Hill Mai MD Work Phone: [facility] 01-18-2025 07:50-0400 Heart rate 82 /min Hill Mai MD Work Phone: [facility] 01-18-2025 07:50-0400 SaO2% (BldA) [Mass fraction] 98 % Hill Mai MD Work Phone: [facility] 01-18-2025 07:50-0400 Systolic blood pressure 138 mm[Hg] Hill Mai MD Work Phone: [facility] 11-16-2024 11:00-0400 Body height 171.5 cm Hill Mai MD Work Phone: [facility] 11-16-2024 11:00-0400 Body mass index (BMI) [Ratio] 42.9 kg/m2 Hill Mai MD Work Phone: [facility] 11-16-2024 11:00-0400 Body weight 126.1 kg Hill Mai MD Work Phone: [facility] 11-16-2024 11:00-0400 Diastolic blood pressure 90 mm[Hg] Hill Mai MD Work Phone: [facility] 11-16-2024 11:00-0400 Heart rate 93 /min Hill Mai MD Work Phone: [facility] 11-16-2024 11:00-0400 SaO2% (BldA) [Mass fraction] 97 % Hill Mai MD Work Phone: [facility] 11-16-2024 11:00-0400 Systolic blood pressure 130 mm[Hg] Hill Mai MD Work Phone: [facility] 11-10-2024 12:25-0400 Body mass index (BMI) [Ratio] 43.65 kg/m2 Godfrey Beck MD Work Phone: [facility] 11-10-2024 12:25-0400 Body temperature 98.01 [degF] Godfrey Beck MD Work Phone: [facility] 11-10-2024 12:25-0400 Body weight 128.3 kg Godfrey Beck MD Work Phone: [facility] 11-10-2024 12:25-0400 Diastolic blood pressure 76 mm[Hg] Godfrey Beck MD Work Phone: [facility] 11-10-2024 12:25-0400 Heart rate 79 /min Godfrey Beck MD Work Phone: [facility] 11-10-2024 12:25-0400 Respiratory rate 16 /min Godfrey Beck MD Work Phone: [facility] 11-10-2024 12:25-0400 SaO2% (BldA) [Mass fraction] 98 % Godfrey Beck MD Work Phone: [facility] 11-10-2024 12:25-0400 Systolic blood pressure 110 mm[Hg] Godfrey Beck MD Work Phone: [facility] 08-12-2024 17:24-0400 Body mass index (BMI) [Ratio] 43.88 kg/m2 Courtney Lewis PEDIATRIC PHYSICIAN.POWER PRESS TENDER Work Phone: [facility] 08-12-2024 17:24-0400 Body temperature 97 [degF] Courtney Lewis PEDIATRIC PHYSICIAN.POWER PRESS TENDER Work Phone: [facility] 08-12-2024 17:24-0400 Body weight 129 kg Courtney Lewis PEDIATRIC PHYSICIAN.POWER PRESS TENDER Work Phone: [facility] 08-12-2024 17:24-0400 Diastolic blood pressure 95 mm[Hg] Courtney Lewis PEDIATRIC PHYSICIAN.POWER PRESS TENDER Work Phone: [facility] 08-12-2024 17:24-0400 Heart rate 95 /min Courtney Lewis PEDIATRIC PHYSICIAN.POWER PRESS TENDER Work Phone: [facility] 08-12-2024 17:24-0400 Respiratory rate 20 /min Courtney Lewis PEDIATRIC PHYSICIAN.POWER PRESS TENDER Work Phone: [facility] 08-12-2024 17:24-0400 SaO2% (BldA) [Mass fraction] 98 % Courtney Lewis PEDIATRIC PHYSICIAN.POWER PRESS TENDER Work Phone: [facility] 08-12-2024 17:24-0400 Systolic blood pressure 135 mm[Hg] Courtney Lewis PEDIATRIC PHYSICIAN.POWER PRESS TENDER Work Phone: [facility] 03-09-2024 15:55-0500 Body height 171.5 cm Sadia Natarajan MD Work Phone: [facility] 03-09-2024 15:55-0500 Body mass index (BMI) [Ratio] 42.5 kg/m2 Sadia Natarajan MD Work Phone: [facility] 03-09-2024 15:55-0500 Body weight 124.92 kg Sadia Natarajan MD Work Phone: [facility] 03-09-2024 15:55-0500 Diastolic blood pressure 80 mm[Hg] Sadia Natarajan MD Work Phone: [facility] 03-09-2024 15:55-0500 Systolic blood pressure 136 mm[Hg] Sadia Natarajan MD Work Phone: [facility] 10-28-2023 17:22-0400 Body mass index (BMI) [Ratio] 43.15 kg/m2 Krislyn Aberegg PA Work Phone: [facility] 10-28-2023 17:22-0400 Body temperature 98.8 [degF] Krislyn Aberegg PA Work Phone: [facility] 10-28-2023 17:22-0400 Body weight 127.5 kg Krislyn Aberegg PA Work Phone: [facility] 10-28-2023 17:22-0400 Diastolic blood pressure 88 mm[Hg] Krislyn Aberegg PA Work Phone: [facility] 10-28-2023 17:22-0400 Heart rate 98 /min Krislyn Aberegg PA Work Phone: [facility] 10-28-2023 17:22-0400 Respiratory rate 16 /min Krislyn Aberegg PA Work Phone: [facility] 10-28-2023 17:22-0400 SaO2% (BldA) [Mass fraction] 98 % Krislyn Aberegg PA Work Phone: [facility] 10-28-2023 17:22-0400 Systolic blood pressure 144 mm[Hg] Krislyn Aberegg PA Work Phone: [facility] 10-10-2023 07:55-0400 Body height 171.9 cm Violeta Podlogar PEDIATRIC PHYSICIAN.POWER PRESS TENDER Work Phone: [facility] 10-10-2023 07:55-0400 Body mass index (BMI) [Ratio] 42.98 kg/m2 Violeta Podlogar PEDIATRIC PHYSICIAN.POWER PRESS TENDER Work Phone: [facility] 10-10-2023 07:55-0400 Body weight 127.01 kg Violeta Podlogar PEDIATRIC PHYSICIAN.POWER PRESS TENDER Work Phone: [facility] 10-10-2023 07:55-0400 Diastolic blood pressure 82 mm[Hg] Violeta Podlogar PEDIATRIC PHYSICIAN.POWER PRESS TENDER Work Phone: [facility] 10-10-2023 07:55-0400 Heart rate 84 /min Violeta Podlogar PEDIATRIC PHYSICIAN.POWER PRESS TENDER Work Phone: [facility] 10-10-2023 07:55-0400 Respiratory rate 16 /min Violeta Podlogar PEDIATRIC PHYSICIAN.POWER PRESS TENDER Work Phone: [facility] 10-10-2023 07:55-0400 SaO2% (BldA) [Mass fraction] 97 % Violeta Podlogar PEDIATRIC PHYSICIAN.POWER PRESS TENDER Work Phone: [facility] 10-10-2023 07:55-0400 Systolic blood pressure 133 mm[Hg] Violeta Augustin PEDIATRIC PHYSICIAN.POWER PRESS TENDER Work Phone: [facility] 04-17-2023 17:35-0500 Body temperature 99 [degF] Jaida Dez PEDIATRIC PHYSICIAN.POWER PRESS TENDER Work Phone: [facility] 04-17-2023 17:35-0500 Body weight 125.47 kg Jaida Dez PEDIATRIC PHYSICIAN.POWER PRESS TENDER Work Phone: [facility] 04-17-2023 17:35-0500 Diastolic blood pressure 80 mm[Hg] Jaida Dez PEDIATRIC PHYSICIAN.POWER PRESS TENDER Work Phone: [facility] 04-17-2023 17:35-0500 Heart rate 104 /min Jaida Dez PEDIATRIC PHYSICIAN.POWER PRESS TENDER Work Phone: [facility] 04-17-2023 17:35-0500 Respiratory rate 18 /min Jaida Dez PEDIATRIC PHYSICIAN.POWER PRESS TENDER Work Phone: [facility] 04-17-2023 17:35-0500 SaO2% (BldA) [Mass fraction] 98 % Jaida Dez PEDIATRIC PHYSICIAN.POWER PRESS TENDER Work Phone: [facility] 04-17-2023 17:35-0500 Systolic blood pressure 122 mm[Hg] Jaida Dez PEDIATRIC PHYSICIAN.POWER PRESS TENDER Work Phone: [facility] 12-19-2022 10:10-0400 Diastolic blood pressure 81 mm[Hg] Jarrod Solorzano MD Work Phone: [facility] 12-19-2022 10:10-0400 Heart rate 80 /min Jarrod Solorzano MD Work Phone: [facility] 12-19-2022 10:10-0400 Respiratory rate 16 /min Jarrod Solorzano MD Work Phone: [facility] 12-19-2022 10:10-0400 SaO2% (BldA) [Mass fraction] 100 % Jarrod Solorzano MD Work Phone: [facility] 12-19-2022 10:10-0400 Systolic blood pressure 134 mm[Hg] Jarrod Solorzano MD Work Phone: [facility] 12-19-2022 08:38-0400 Body temperature 97.2 [degF] Jarrod Solorzano MD Work Phone: [facility] 12-19-2022 08:38-0400 Body weight 125.9 kg Jarrod Solorzano MD Work Phone: [facility] 10-24-2022 15:37-0400 Body height 170 cm Sadia Natarajan MD Work Phone: [facility] 10-24-2022 15:37-0400 Body weight 125.92 kg Sadia Natarajan MD Work Phone: [facility] 10-24-2022 15:37-0400 Diastolic blood pressure 92 mm[Hg] Sadia Natarajan MD Work Phone: [facility] 10-24-2022 15:37-0400 Systolic blood pressure 144 mm[Hg] Sadia Natarajan MD Work Phone: [facility] 10-09-2022 17:00-0400 Body height 170 cm Violeta Podlogar PEDIATRIC PHYSICIAN.POWER PRESS TENDER Work Phone: [facility] 10-09-2022 17:00-0400 Body weight 126.64 kg Violeta Podlogar PEDIATRIC PHYSICIAN.POWER PRESS TENDER Work Phone: [facility] 10-09-2022 17:00-0400 Diastolic blood pressure 86 mm[Hg] Violeta Podlogar PEDIATRIC PHYSICIAN.POWER PRESS TENDER Work Phone: [facility] 10-09-2022 17:00-0400 Heart rate 93 /min Violeta Podlogar PEDIATRIC PHYSICIAN.POWER PRESS TENDER Work Phone: [facility] 10-09-2022 17:00-0400 Respiratory rate 16 /min Violeta Podlogar PEDIATRIC PHYSICIAN.POWER PRESS TENDER Work Phone: [facility] 10-09-2022 17:00-0400 SaO2% (BldA) [Mass fraction] 97 % Violeta Podlogar PEDIATRIC PHYSICIAN.POWER PRESS TENDER Work Phone: [facility] 10-09-2022 17:00-0400 Systolic blood pressure 128 mm[Hg] Violeta Augustin PEDIATRIC PHYSICIAN.POWER PRESS TENDER Work Phone: [facility] 08-02-2022 17:35-0400 Body temperature 98.1 [degF] Brittny Praisler-Wood PEDIATRIC PHYSICIAN.POWER PRESS TENDER Work Phone: [facility] 08-02-2022 17:35-0400 Body weight 125.92 kg Brittny Praisler-Wood PEDIATRIC PHYSICIAN.POWER PRESS TENDER Work Phone: [facility] 08-02-2022 17:35-0400 Diastolic blood pressure 86 mm[Hg] Brittny Praisler-Wood PEDIATRIC PHYSICIAN.POWER PRESS TENDER Work Phone: [facility] 08-02-2022 17:35-0400 Heart rate 126 /min Brittny Praisler-Wood PEDIATRIC PHYSICIAN.POWER PRESS TENDER Work Phone: [facility] 08-02-2022 17:35-0400 Respiratory rate 18 /min Brittny Praisler-Wood PEDIATRIC PHYSICIAN.POWER PRESS TENDER Work Phone: [facility] 08-02-2022 17:35-0400 SaO2% (BldA) [Mass fraction] 97 % Brittny Praisler-Wood PEDIATRIC PHYSICIAN.POWER PRESS TENDER Work Phone: [facility] 08-02-2022 17:35-0400 Systolic blood pressure 138 mm[Hg] Brittny Praisler-Wood PEDIATRIC PHYSICIAN.POWER PRESS TENDER Work Phone: [facility] 02-13-2022 07:53-0400 Body temperature 97.59 [degF] Courtney Lewis PEDIATRIC PHYSICIAN.POWER PRESS TENDER Work Phone: [facility] 02-13-2022 07:53-0400 Body weight 122.02 kg Courtney Lewis PEDIATRIC PHYSICIAN.POWER PRESS TENDER Work Phone: [facility] 02-13-2022 07:53-0400 Diastolic blood pressure 76 mm[Hg] Courtney Lewis PEDIATRIC PHYSICIAN.POWER PRESS TENDER Work Phone: [facility] 02-13-2022 07:53-0400 Heart rate 98 /min Courtney Lewis PEDIATRIC PHYSICIAN.POWER PRESS TENDER Work Phone: [facility] 02-13-2022 07:53-0400 Respiratory rate 18 /min Courtney Lewis PEDIATRIC PHYSICIAN.POWER PRESS TENDER Work Phone: [facility] 02-13-2022 07:53-0400 SaO2% (BldA) [Mass fraction] 98 % Courtney Lewis PEDIATRIC PHYSICIAN.POWER PRESS TENDER Work Phone: [facility] 02-13-2022 07:53-0400 Systolic blood pressure 128 mm[Hg] Courtney Lewis PEDIATRIC PHYSICIAN.POWER PRESS TENDER Work Phone: [facility] 10-23-2021 14:40-0400 Body height 172 cm Sadia Natarajan MD Work Phone: [facility] 10-23-2021 14:40-0400 Body weight 123.92 kg Sadia Natarajan MD Work Phone: [facility] 10-23-2021 14:40-0400 Diastolic blood pressure 72 mm[Hg] Sadia Natarajan MD Work Phone: [facility] 10-23-2021 14:40-0400 Systolic blood pressure 112 mm[Hg] Sadia Natarajan MD Work Phone: [facility] Encounters Encounter Date Encounter Type Care Provider Facility Start: 02-16-2025 ambulatory Hill VILLEDA Facility:[facility] Start: 02-11-2025 End: 02-11-2025 ambulatory MORALES MATTHEW Facility:[facility] Start: 01-18-2025 End: 01-18-2025 ambulatory MORALES MATTHEW Facility:[facility] Start: 01-18-2025 End: 01-18-2025 Patient encounter procedure Hill Mai MD Work Phone: [facility] [place] Comment on above: Annual physical exam (Primary Dx); Essential hypertension; Anxiety with depression; Morbid obesity with BMI of 40.0-44.9, adult (HCC); Snoring; Daytime somnolence Start: 11-16-2024 End: 11-16-2024 Patient encounter procedure Hill Mai MD Work Phone: [facility] [place] Comment on above: Poison aishwarya dermatiti s (Primary Dx); Essential hypertension Start: 11-16-2024 End: 11-16-2024 ambulatory Hill Mai MD Work Phone: [facility] [place] Comment on above: Next steps Start: 11-10-2024 End: 11-10-2024 Office outpatient visit 25 minutes Godfrey Beck MD Work Phone: [facility] [place] Comment on above: Contact dermatitis d ue to plant (Primary Dx); Impaired fasting glucose Start: 11-10-2024 End: 11-10-2024 ambulatory GILBERT MATTHEW Facility:[facility] Start: 08-12-2024 End: 08-12-2024 [facility] Facility:[facility] Start: 08-12-2024 End: 08-12-2024 Patient encounter procedure Courtney Lewis APRN.POWER PRESS TENDER Work Phone: [facility] Comment on above: URI, acute (Primary Dx); Acute otitis media, right Start: 07-09-2024 End: 07-09-2024 Refill Violeta Podlogradha CLARKE.POWER PRESS TENDER Work Phone: [facility] [place] Comment on above: Refill Request Start: 03-09-2024 End: 03-09-2024 ambulatory SADIA NATARAJAN Facility:[facility] Start: 03-09-2024 End: 03-09-2024 Patient encounter procedure Sadia Natarajan MD Work Phone: OB/Gynecology Comment on above: Encounter for gyneco logical examination (general) (routine) without abnormal findings (Primary Dx); Encounter for IUD removal Start: 03-09-2024 End: 03-09-2024 Patient encounter status Sadia Natarajan MD Work Phone: [facility] Start: 02-05-2024 End: 02-05-2024 ambulatory Sadia Natarajan MD Work Phone: OB/Gynecology Comment on above: IUD removal Start: 01-21-2024 End: 01-21-2024 Refill Violeta Podlogar PEDIATRIC PHYSICIAN.POWER PRESS TENDER Work Phone: [facility] Comment on above: Refill Request Start: 10-29-2023 Refill Violeta Podlogar PEDIATRIC PHYSICIAN.POWER PRESS TENDER Work Phone: [facility] Comment on above: Refill Request Start: 10-28-2023 End: 10-28-2023 Patient encounter procedure Heath AGUILERA Work Phone: [facility] Comment on above: Allergic contact valdez matitis due to plants, except food (Primary Dx) Start: 10-10-2023 End: 10-10-2023 Patient encounter procedure Violeta Podlogar PEDIATRIC PHYSICIAN.POWER PRESS TENDER Work Phone: [facility] Comment on above: Wellness examination (Primary Dx); Anxiety with depression; Essential hypertension; Screening for cholesterol level; Elevated glucose Start: 10-10-2023 End: 10-10-2023 Patient encounter status Violeta Podlogar PEDIATRIC PHYSICIAN.POWER PRESS TENDER Work Phone: [facility] Start: 04-17-2023 End: 04-17-2023 Patient encounter procedure Jaida Martinesk PEDIATRIC PHYSICIAN.POWER PRESS TENDER Work Phone: [facility] Comment on above: URI with cough and c ongestion (Primary Dx); Wheezing Start: 01-01-2023 ambulatory Jarrod hale MD Work Phone: General Surgery Comment on above: Results Start: 01-01-2023 E-mail encounter fro m caregiver Jarrod Solorzano MD Work Phone: [facility] Start: 12-30-2022 Telephone encounter Jarrod Solorzano MD Work Phone: General Surgery Comment on above: Results Start: 12-19-2022 End: 12-19-2022 Subsequent hospital visit by physician Jarrod Solorzano MD Work Phone: Ambulatory Surgery Comment on above: Special screening fo r malignant neoplasms, colon [Z12.11] Start: 10-24-2022 End: 10-24-2022 Patient encounter procedure Sadia Natarajan MD Work Phone: OB/Gynecology Comment on above: Encounter for gyneco logical examination without abnormal finding (Primary Dx); Special screening for malignant neoplasms, colon Start: 10-24-2022 End: 10-24-2022 Patient encounter status Sadia Natarajan MD Work Phone: OB/Gynecology Start: 10-09-2022 End: 10-09-2022 Patient encounter procedure Violeta Augustin PEDIATRIC PHYSICIAN.POWER PRESS TENDER Work Phone: [facility] Comment on above: Wellness examination (Primary Dx); Essential hypertension; Screening for hyperlipidemia; Encounter for immunization Start: 10-09-2022 End: 10-09-2022 Patient encounter status Violeta Augustin PEDIATRIC PHYSICIAN.POWER PRESS TENDER Work Phone: [facility] Start: 08-02-2022 End: 08-02-2022 Patient encounter procedure Brittny Lui PEDIATRIC PHYSICIAN.POWER PRESS TENDER Work Phone: [facility] Comment on above: Other acute nonsuppu rative otitis media of left ear, recurrence not specified (Primary Dx); Viral URI with cough Start: 05-25-2022 Refill Hill Mai MD Work Phone: [facility] Comment on above: Refill Request Start: 02-13-2022 End: 02-13-2022 Patient encounter procedure Courtney Lewis PEDIATRIC PHYSICIAN.POWER PRESS TENDER Work Phone: [facility] Comment on above: URI, acute (Primary Dx); Acute otitis media, left Start: 11-11-2021 Refill Hill Mai MD Work Phone: [facility] Comment on above: Refill Request Start: 10-23-2021 End: 10-23-2021 Patient encounter procedure Sadia Natarajan MD Work Phone: OB/Gynecology Comment on above: Encounter for gyneco logical examination without abnormal finding (Primary Dx); Encounter for screening for malignant neoplasm of cervix; Special screening examination for human papillomavirus (HPV) Start: 10-23-2021 End: 10-23-2021 Patient encounter status Sadia Natarajan MD Work Phone: OB/Gynecology Start: 07-25-2017 End: 09-09-2019 Patient requested procedure Violeta Podlogradha PEDIATRIC PHYSICIAN.POWER PRESS TENDER Work Phone: [facility] Procedures Date Procedure Procedure Detail Performing Clinician Start: 12-19-2022 Level iv surg pathol ogy gross&microscopic exam Jarrod Solorzano MD Work Phone: Start: 12-19-2022 Colonoscopy flx dx w /collj spec when pfrmd Sadia Natarajan MD Work Phone: Start: 12-19-2022 Colonoscopy Jarrod neville MD Work Phone: Start: 10-09-2022 PFIZER-BIONTCell-A-Spot COVI D-19 BIVALENT VACCINE, AGE 12+ YR Violeta Augustin PEDIATRIC PHYSICIAN.POWER PRESS TENDER Work Phone: Plan of Treatment Date Care Activity Detail Author Start: 05-07-2029 Urine microalbumin profile [facility] Start: 12-20-2027 Colonoscopy COLONOSCOPY [facility] Start: 12-20-2027 COLORECTAL CANCER SCREENING COLORECTAL CANCER SCREENING [facility] Start: 12-20-2027 Screening for malign ant neoplasm of colon [facility] Start: 10-23-2026 HPV TESTING HPV TESTING [facility] Start: 10-23-2026 PAP TESTING PAP TESTING [facility] Start: 10-23-2026 Screening for malign ant neoplasm of cervix [facility] Start: 01-18-2026 Annual PCP Team Dentist Private Practice jose Disease Visit Annual PCP Team Chronic Disease Visit [facility] Start: 01-18-2026 Hepatitis B Vaccine (1 of 3 - 19+ 3-dose series) Hepatitis B Vaccine (1 of 3 - 19+ 3-dose series) [facility] Comment on above: Postponed from 11/09 (Declined at this time) Start: 01-18-2026 HPV Vaccine (1 - 3-d ose SCDM series) HPV Vaccine (1 - 3-dose SCDM series) [facility] Comment on above: Postponed from 11/09 (Declined at this time) Start: 11-16-2025 Annual PCP Team Dentist Private Practice jose Disease Visit Annual PCP Team Chronic Disease Visit [facility] Start: 11-01-2025 Influenza vaccination Influenza Vacc ine (#1) [facility] Comment on above: Postponed from 01/03 (Declined at this time) Start: 02-11-2025 End: 02-11-2025 Patient encounter procedure 02/11/2025 2:00 PM EDT Office Visit Neurology [address] [place] [address] Dx: Snoring [R06.83]; Daytime somnolence [R40.0] Neurology Comment on above: Dx: Snoring [R06.83] ; Daytime somnolence [R40.0] Start: 01-18-2025 End: 04-19-2025 Comprehensive metabolic 2000 panel - Serum or Plasma [facility] Comment on above: Expected: 01/18/2025 , Expires: 04/19/2025 Start: 01-18-2025 End: 04-19-2025 Hemoglobin A1c in Blood [facility] Comment on above: Expected: 01/18/2025 , Expires: 04/19/2025 Start: 01-18-2025 End: 04-19-2025 Lipid 1996 panel - Serum or Plasma [facility] Comment on above: Expected: 01/18/2025 , Expires: 04/19/2025 Start: 01-18-2025 End: 04-19-2025 Thyrotropin [Units/volume] in Serum or Plasma [facility] Comment on above: Expected: 01/18/2025 , Expires: 04/19/2025 Start: 01-18-2025 End: 01-18-2025 Patient encounter procedure 01/18/2025 8:00 AM EDT Office Visit [facility] [address] [place] [address] Hill Mai MD [address] [place] [address] Annual physical [facility] Comment on above: Annual physical Start: 01-03-2025 Influenza vaccination Influenza Vacc ine (#1) [facility] Start: 10-09-2024 Annual PCP Team Dentist Private Practice jose Disease Visit Annual PCP Team Chronic Disease Visit [facility] Start: 03-09-2024 End: 03-09-2024 Patient encounter procedure 03/09/2024 4:00 PM EST Office Visit OB/Gynecology [address] [place] [address] Sadia Natarajan MD [address] [place] 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 VISIT ANNUAL PCP TEAM CHRONIC DISEASE VISIT [facility] Start: 10-10-2023 End: 01-09-2024 CBC panel - Blood by Automated count [facility] Comment on above: Expected: 10/10/2023 , Expires: 01/09/2024 Start: 10-10-2023 End: 01-09-2024 Comprehensive metabolic 2000 panel - Serum or Plasma [facility] Comment on above: Expected: 10/10/2023 , Expires: 01/09/2024 Start: 10-10-2023 End: 01-09-2024 Hemoglobin A1c in Blood [facility] Work Phone: Comment on above: Expected: 10/10/2023 , Expires: 01/09/2024 Start: 10-10-2023 End: 01-09-2024 Lipid 1996 panel - Serum or Plasma [facility] Comment on above: Expected: 10/10/2023 , Expires: 01/09/2024 Start: 02-13-2023 BP CONTROLLED (<130/80) BP CONTROLLE D (<130/80) [facility] Start: 01-03-2023 Covid-19 Vaccine () Covid-19 Vaccine () [facility] Start: 01-03-2023 Influenza vaccination [facility] Start: 10-23-2022 BP CONTROLLED (<130/80) BP CONTROLLE D (<130/80) [facility] Start: 10-09-2022 End: 12-09-2022 Comprehensive metabolic 2000 panel - Serum or Plasma COMP METABOLIC PANEL Lab Routine Essential hypertension Wellness examination Expected: 10/09/2022, Expires: 12/09/2022 [facility] Work Phone: Comment on above: Expected: 10/09/2022 , Expires: 12/09/2022 Start: 10-09-2022 End: 12-09-2022 Lipid 1996 panel - Serum or Plasma LIPID PANEL BASIC Lab Routine Screening for hyperlipidemia Wellness examination Expected: 10/09/2022, Expires: 12/09/2022 [facility] Work Phone: Comment on above: Expected: 10/09/2022 , Expires: 12/09/2022 Start: 05-07-2022 ANNUAL 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 VISIT ANNUAL PCP TEAM CHRONIC DISEASE VISIT [facility] Start: 02-06-2022 HPV TESTING HPV TESTING [facility] Start: 02-06-2022 PAP TESTING PAP TESTING [facility] Start: 01-03-2022 Influenza vaccination INFLUENZA (#1) [facility] Start: 06-29-2021 COVID-19 VACCINE (4 - Booster for Pfizer series) COVID-19 VACCINE (4 - Booster for Pfizer series) [facility] Start: 2005 Hepatitis B Vaccine (1 of 3 - 19+ 3-dose series) Hepatitis B Vaccine (1 of 3 - 19+ 3-dose series) [facility] Start: 2004 BP CONTROLLED (<130/80) BP CONTROLLE D (<130/80) [facility] Start: 2004 HEPATITIS C SCREENING HEPATITIS C [facility] Start: 2004 Hepatitis C screening Hepatitis C [facility] Start: 1986 HEPATITIS B (1 of 3 - 3-dose series) HEPATITIS B (1 of 3 - 3-dose series) [facility] Start: 1986 Hepatitis B Vaccine (1 of 3 - 3-dose series) Hepatitis B Vaccine (1 of 3 - 3-dose series) [facility] End: 01-18-2026 HOME SLEEP APNEA TEST (HSAT) HOME SLEEP APNEA TEST (HSAT) Procedures Routine Snoring Daytime somnolence 1 Occurrences starting 01/18/2025 until 01/18/2026 [facility] Work Phone: Comment on above: 1 Occurrences starti ng 01/18/2025 until 01/18/2026 PAP FLUID CERVICAL SCREENING PAP FLUID CERVICAL SCREENING Lab Routine Encounter for screening for malignant neoplasm of cervix Special screening examination for human papillomavirus (HPV) 10/23/2021 3:17 PM EDT [facility] Work Phone: Removal intrauterine device iud REMOVE INTRAUTERINE DEVICE Procedures Routine Encounter for IUD removal Ordered: 02/05/2024 [facility] Work Phone: Comment on above: Ordered: 02/05/2024 Removal intrauterine device iud REMOVE INTRAUTERINE DEVICE Procedures Routine Encounter for IUD removal Ordered: 03/09/2024 [facility] Work Phone: Comment on above: Ordered: 03/09/2024 End: 10-25-2023 Screening colonoscopy COLONOSCOPY SCREENING Endoscopy Routine Special screening for malignant neoplasms, colon 1 Occurrences starting 10/24/2022 until 10/25/2023 [facility] Work Phone: Comment on above: 1 Occurrences starti ng 10/24/2022 until 10/25/2023 [facility] Immunizations Immunization Date Immunization Notes Care Provider [facility] 02-10-2023 influenza virus vaccine, unspecified formulation Violeta Augustin PEDIATRIC PHYSICIAN.POWER PRESS TENDER Work Phone: [facility] 10-09-2022 COVID-19 vaccine, ag e 12+ yr, bivalent (PFIZER-BIONTECH) Violeat Augustin PEDIATRIC PHYSICIAN.POWER PRESS TENDER Work Phone: [facility] 03-12-2021 influenza virus vaccine, unspecified formulation Jarrod Solorzano MD Work Phone: [facility] 08-18-2020 COVID-19 vaccine, ag e 12+ yr (PFIZER-BIONTECH - PURPLE TOP) Sadia Natarajan MD Work Phone: [facility] 07-28-2020 COVID-19 vaccine, ag e 12+ yr ([employer]NTCell-A-Spot - PURPLE TOP) Sadia Natarajan MD Work Phone: [facility] 04-06-2020 influenza virus vaccine, unspecified formulation Hill Mai MD Work Phone: [facility] 05-07-2019 tetanus toxoid, reduced diphtheria toxoid, and acellular pertussis vaccine, adsorbed Sadia Natarajan MD Work Phone: [facility] 01-14-2019 influenza, injectabl e, quadrivalent, contains preservative Sadia Natarajan MD Work Phone: [facility] 03-13-2017 influenza, injectabl e, quadrivalent, contains preservative Sadia Natarajan MD Work Phone: [facility] 01-31-2012 influenza virus vaccine, unspecified formulation Sadia Natarajan MD Work Phone: [facility] 04-04-2011 influenza virus vaccine, unspecified formulation Sadia Natarajan MD Work Phone: [facility] 01-24-2009 tetanus toxoid, reduced diphtheria toxoid, and acellular pertussis vaccine, adsorbed Sadia Natarajan MD Work Phone: [facility] 09-23-1991 tuberculin skin test ; purified protein derivative solution, intradermal Violeta Augustin APRN.CNP Work Phone: [facility] 08-12-1991 DTP-Haemophilus influenzae type b conjugate vaccine Sadia Natarajan MD Work Phone: [facility] Work Phone: 08-12-1991 trivalent poliovirus vaccine, live, oral Sadia Natarajan MD Work Phone: [facility] Work Phone: 07-16-1988 haemophilus influenz ae type b vaccine, HbOC conjugate Sadia Natarajan MD Work Phone: [facility] Work Phone: 05-20-1988 DTP-Haemophilus influenzae type b conjugate vaccine Sadia Natarajan MD Work Phone: [facility] Work Phone: 05-20-1988 measles, mumps and rubella virus vaccine Sadia Natarajan MD Work Phone: [facility] Work Phone: 05-20-1988 trivalent poliovirus vaccine, live, oral Sadia Natarajan MD Work Phone: [facility] Work Phone: 05-20-1988 tuberculin skin test ; purified protein derivative solution, intradermal Violeta Augustin APRN.CNP Work Phone: [facility] 06-07-1987 DTP-Haemophilus influenzae type b conjugate vaccine Sadia Natarajan MD Work Phone: [facility] Work Phone: 02-22-1987 DTP-Haemophilus influenzae type b conjugate vaccine Sadia Natarajan MD Work Phone: [facility] Work Phone: 02-22-1987 trivalent poliovirus vaccine, live, oral Sadia Natarajan MD Work Phone: [facility] Work Phone: 01-02-1987 DTP-Haemophilus influenzae type b conjugate vaccine Sadia Natarajan MD Work Phone: [facility] Work Phone: 01-02-1987 trivalent poliovirus vaccine, live, oral Sadia Natarajan MD Work Phone: [facility] Work Phone: Payers Date Payer Category Payer Self-pay 2021 [facility] PPO [id number] 2021 Unknown [employer] PPO [id number] 2021-Present [phone] [address] [place] [address] PPO [id number] 2021 Unknown [employer] PPO [id number] 2021-Present [phone] [address] [place] [address] PPO [id number] 2021 Unknown [id number] Unknown [id number] Social History Date Type Detail Facility Start: 02-13-2022 Tobacco smoking stat [facility] Never smoked tobacco [facility] Work Phone: Start: 10-23-2021 End: 01-18-2025 Alcohol intake Current drinker of alcohol (finding) [facility] Start: 07-25-2017 History SDOH Alcohol Comment occassionally, not while [facility] Start: 1985 Sex Assigned At Not on file [facility] Start: 10-13-2021 End: 02-13-2022 Exposure to SARS-CoV-2 (event) Not sure [facility] Start: 02-13-2022 Tobacco use and exposure Smoke less tobacco non-user [facility] Work Phone: Start: 10-09-2022 History SDOH Alcohol Frequency 3 [facility] Start: 10-09-2022 History SDOH Alcohol Std Drinks 1 [facility] Start: 10-09-2022 History SDOH Alcohol Binge 2 [facility] Start: 10-09-2022 History SDOH Social Connections Phone 5 [facility] Start: 10-09-2022 History SDOH Financial 4 [facility] Start: 10-09-2022 End: 10-07-2023 History of Social function [address] Start: 10-09-2022 End: 10-07-2023 Social connection and isolation panel [facility] Do you belong to any clubs or organizations such as alevism groups, unions, fraternal or athletic groups, or school groups? Yes [facility] Are you now , , , , never or living with a partner? [facility] How often to you hav e a drink containing alcohol? 2-4 times a month [facility] How many standard dr inks containing alcohol do you have on a typical day? 1 or 2 [facility] How often do you hav e 6 or more drinks on 1 occasion? Less than monthly [facility] How hard is it for y ou to pay for the very basics like food, housing, medical care, and heating Not very hard [facility] Start: 04-05-2012 Adult Depression Scr eening Assessment 2 [facility] Do you feel stress - tense, restless, nervous, or anxious, or unable to sleep at night because your mind is troubled all the time - these days [OSQ] Only a little [facility] (I/We) worried whevy er (my/our) food would run out before (I/we) got money to buy more. Never true [facility] In the past 12 month s, was there a time when you were not able to pay the mortgage or rent on time? No [facility] Functional Status Date Assessment Result Facility 11-16-2024 Total score [AUDIT-C] 3 11/17/19 25 9:36 AM EDT User, Aileen [facility] 11-16-2024 How often to you hav e a drink containing alcohol? 2-4 times a month 11/16/2024 9:36 AM EDT User, Aileen 2-4 times a month [facility] 11-16-[address] inks containing alcohol do you have on a typical day? 1 or 2 11/16/2024 9:36 AM EDT User, Aileen 1 or 2 [facility] 11-16-2024 How often do you hav e 6 or more drinks on 1 occasion? Less than monthly 11/16/2024 9:36 AM EDT User, Mychart Less than monthly [facility] 09-07-2013 Are you deaf, or do you have serious difficulty hearing No 09/07/2013 2:03 PM EDT John Amy Morales No [facility] 09-07-2013 Are you blind, or do you have serious difficulty seeing, even when wearing glasses No 09/07/2013 2:03 PM EDT Lorygisselle Amy Morales No [facility] 09-07-2013 Do you have serious difficulty walking or climbing stairs No 09/07/2013 2:03 PM EDT LoryAmy pitts Cma No [facility] 09-07-2013 Do you have difficul ty dressing or bathing No 09/07/2013 2:03 PM EDT John MoralesAmy No [facility] 09-07-2013 Because of a physica l, mental, or emotional condition, do you have difficulty doing errands alone such as visiting a physician's office or shopping No 09/07/2013 2:03 PM EDT John MoralesAmy No [facility] Mental Status Date Assessment Result Facility 09-07-2013 Because of a physica l, mental, or emotional condition, do you have serious difficulty concentrating, remembering, or making decisions No 09/07/2013 2:03 PM EDT John MoralesAmy No [facility] Clinical Notes 07-06-2019 to 02-15-[address] MD - 01/18/2025 8:[address] MD - 11/16/2024 11:05 AM Godfrey De Leon MD - 11/10/2024 12:30 PM EDT Note Date & Type Note Facility 02-15-2025 Note HNO ID: [id number] Author: ?, ?, ? Service: ? Author Type: ? Type: Progress Notes Filed: 02/15/2025 09:56 Note Text: Sleep Study Check-In Documentation Date: February 15, 2025 Name: Malcolm Mina Comments: HST was returned in working order with all sleep questionnaires Marilu Arenas [facility] 02-10-2025 Note HNO ID: [id number] Author: ?, ?, ? Service: ? Author Type: ? Type: Progress Notes Filed: 02/15/2025 09:56 Note Text: [facility] # [id number] , date shipped out 02-10-25 Fed ex only Tracking mailout: [id number] Tracking return: , [id number] [facility] 02-07-2025 Note HNO ID: [id number] Author: ESTRELLA ARANA APRN.POWER PRESS TENDER Service: ? Author Type: Nurse Practitioner Type: Progress Notes Filed: 02/15/2025 09:56 Note Text: February 07, 2025 Standing PSG Orders signed in the last 90 days None Future PSG Orders signed in the last 90 days Ordered Auth. provider HOME SLEEP APNEA TEST (HSAT) [[id number]] 01/18/25 Hill Mai MD Assoc. diagnoses: Snoring [R06.83], Daytime somnolence [R40.0] Q: Indications: A: Obstructive sleep apnea Q: STOP-BANG conditions - Select All That Apply: A: BMI > 35 kg/m2 A2: high blood PRESSURE A3: SNORING that is loud or disruptive A4: TIREDNESS, fatigue or sleepiness during the day Q: Current use of supplemental oxygen during sleep period?: A: No All Prior Sleep Studies (past 365 days) 01/18/2025 08:16 Sleep Studies HOME SLEEP APNEA TEST (HSAT) HOME SLEEP APNEA TEST (HSAT) Order Status: Ordered, Future Expires: 01/18/26 BMI Readings from Last 2 Encounters: 01/18/25 : 42.96 kg/m? 11/16/24 : 42.90 kg/m? PAST MEDICAL HISTORY Diagnosis Date Anxiety with depression Carpal tunnel syndrome 2009 Essential hypertension Family history of colon cancer in mother age 62 Hemorrhoids History of colonic polyps 12/30/2022 Morbid obesity (HCC) PMH - PAST MEDICAL HISTORY OF granuloma anular Snoring The medical record was reviewed to determine if the proposed sleep study conforms to the AASM Practice Parameters for the Indications for Polysomnography and Related Procedures, or if the sleep study is indicated for other reasons. Indications for study: KARYN suspected with comorbid medical or sleep disorders: Morbid obesity (BMI>40 kg/m2) Sleep study to be performed: Home Sleep Apnea Test (HSAT) Special instructions: None-follow laboratory protocol Omaira Cimorelli Tech - Sleep Medicine Staff Note: I have read the above protocol, edited as needed, and agree to the plan. Estrella Arana APRN.POWER PRESS TENDER 12:55 PM, 02/10/2025 [facility] 02-04-2025 Note HNO ID: [id number] Author: ?, ?, ? Service: ? Author Type: ? Type: Progress Notes Filed: 02/15/2025 09:56 Note Text: February 04, 2025 An order has been received for Home Sleep Apnea Test (HSAT) from Hill Goldsmith [facility] Staff. Visit prep complete. Comments :No The sleep study is scheduled for 02/02/25. Insurance: Payor: SHINE / Plan: GARTH ACCESS PPO / Product Type: PPO / Payer/Plan Subscr Sex Relation Sub. Ins. ID Effective Group Num 1. [employer]INE LIANG* MERARIBERTHA [birth year]/03/1979 Male Spouse [id number] 05/05/21 [id number] [id number] Joselo Hector [facility] 01-18-2025 Instructions Hill Mai MD - 01/18/2025 8:21 AM EDT - Continue your current medications as prescribed: labetalol twice daily, Zoloft once daily, plus your women s multivitamin, calcium, and fiber tablet. - Arrange for your home sleep apnea test today by speaking with front-desk staff before you leave; the test will be mailed to your house--wear it overnight and mail it back when finished. - Check your blood pressure at home every day for the next two weeks; if readings are consistently 140/90 mmHg or higher, call the office so we can adjust your medication. - Routine fasting blood work was drawn today (blood counts, kidney and liver function, cholesterol, thyroid, and diabetes screening); we will call you with results. - Continue working on weight loss through diet and regular exercise. - Review the pamphlet on the 18-month intensive lifestyle program; call the number provided if you decide to enroll in this structured weight-loss support. - If you choose to add counseling to your treatment, contact one of the counselors using the information provided--studies show therapy plus medication can be more effective. - Plan to receive your flu shot through your workplace clinic in February. - A routine follow-up is scheduled in six months to review your blood pressure and sleep apnea results; if you start CPAP therapy, arrange a follow-up in about one month to assess usage and ensure continued insurance coverage. [facility] - Insurance Therapy/Counseling [facility] [address] [place] [address] [facility] [address] [place] [address] [employer] [address] [address] [facility] [address] [place] [address] [facility] [address] [place] [address] [facility] [address] [address] [employer] [address] [place] [address] [facility] [address] [place] [address] documented in this encounter [facility] 01-18-2025 Note HNO ID: [id number] Author: HILL MAI MD Service: ? Author Type: Physician Type: Progress Notes Filed: 01/18/2025 08:30 Note Text: Chief Complaint Patient presents with: Physical Recording using UC[employer] software for draft documentation of the visit was discussed with the patient/authorized sales representative printing supplies; all questions welcomed and answered. Patient/authorized sales representative printing supplies agreed to proceed HPI Malcolm Mina is a 39 year old female who presents here today for Above Complaints. Patient has been in good health without recent hospitalizations, ER visits. Annual Wellness Exam: - Aletha Mina has had no recent hospitalizations or ED visits. - Feels safe at home. - No tobacco or drug use. - Consumes 1-2 alcoholic drinks, 2-4 times a month. - Planning to receive a flu shot in February at work. Snoring and Daytime Fatigue: - Increased snoring and daytime fatigue. - Sleeps approximately 6 hours per night, sometimes 8 hours on weekends. - Still feels tired even after 8 hours of sleep. Hypertension: - Taking labetalol BID. BP today borderline normal. Asymptomatic on current regimen. - Not checking BP regularly at home. Anxiety: - Managed with Zoloft; finds it helpful. - Missed doses during a recent trip, noticed increased anxiety. - No suicidal ideation or panic attacks. - Not currently attending counseling. Would like information for home. Past medical history, appointments, medications, allergies reviewed. Previous Medical History PAST MEDICAL HISTORY Diagnosis Date Anxiety with depression Carpal tunnel syndrome 2008 Essential hypertension Family history of colon cancer in mother age 62 Hemorrhoids History of colonic polyps 12/30/2022 Morbid obesity (HCC) PMH - PAST MEDICAL HISTORY OF granuloma anular Snoring Previous Surgical History PAST SURGICAL HISTORY Procedure Laterality Date COLONOSCOPY 08/2015 negative/normal COLONOSCOPY 12/19/2022 repeat in 5 years PAST SURGICAL HISTORY OF wisdom teeth SUCTION D AND C 09/25/2018 [facility] Family History FAMILY HISTORY Problem Relation Age of Onset Hypertension Mother Colon Cancer Mother 62 Hypertension Father Heart Father [place] Glaucoma Father Hypertension Brother other (Crohn's Disease) Brother Cancer Maternal Grandmother breast and liver mets Arthritis Maternal Grandmother Heart Maternal Grandfather other (Dementia) Maternal Grandfather Heart Paternal Grandfather No Known Problems Daughter Patient Allergies ALLERGIES Allergen Reactions Lavender (Lavandula* Swelling Current Medications Current Outpatient Medications on File Prior to Visit Medication Sig sertraline (ZOLOFT) 50 mg tablet Take 1 tablet by mouth once daily. labetalol (TRANDATE) 200 mg tablet Take 1 tablet by mouth two times a day. mv-min/iron/folic/calcium/vitK (WOMEN'S MULTIVITAMIN ORAL) Take by mouth. mkon-ibx-fmw-lil-mbrf-gfoa-pec (FIBER 6) 1,000 mg tab Take 1 tablet by mouth once daily. CALCIUM ORAL Take 2 tablets by mouth once daily. No current facility-administered medications on file prior to visit. Social History SOCIAL HISTORY[1] Review of Symptoms REVIEW OF SYSTEMS GENERAL: No weight loss, malaise or fevers HEENT: Negative for frequent or significant headaches, No changes in hearing or vision, no nose bleeds or other nasal problems NECK: Negative for lumps, goiter, pain and significant neck swelling RESPIRATORY: Negative for cough, hemoptysis, wheezing, COPD, dyspnea or shortness of breath CARDIOVASCULAR: Negative for chest pain, leg swelling, hypertension, CHF or palpitations GI: No nausea, vomiting, or diarrhea : No history of dysuria, frequency or incontinence ESTIMATOR PRINTING: Negative for abnormal vaginal bleeding, abnormal vaginal discharge MUSCULOSKELETAL: Negative for joint pain or swelling, back pain or muscle pain SKIN: Negative for lesions, rash, and itching PSYCH: See HPI HEMATOLOGY/LYMPHOLOGY: Negative for prolonged bleeding, bruising easily or swollen nodes ENDOCRINE: Negative for cold or heat intolerance, polyuria, polydipsia and goiter NEURO: No history of headaches, syncope, paralysis, seizures or tremors EXAM: BP 138/88 Pulse 82 Ht 171.5 cm (5' 7.5) Wt 126.3 kg (278 lb 6.4 oz) LMP 12/23/2024 SpO2 98% BMI 42.96 kg/m? General Appearance: Well appearing, alert, in no acute distress, well-hydrated, well nourished. and Morbidly obese. Skin: Skin color, texture, turgor normal, no suspicious rashes or lesions. Head: Normocephalic, no masses, lesions, tenderness or abnormalities. Eyes: Anicteric sclera. Pupils are equally round and reactive to light. Extraocular movements are intact. . Ears: External ears normal, canals clear. Nose/Sinuses: Nares normal, septum midline, mucosa normal, no drainage or sinus tenderness. Oropharynx: Lips, mucosa, and tongue normal, teeth and gums normal, oropharynx nor (more content not included)... [facility] 01-18-2025 History of Presen t illness Narrative Chief Complaint Patient presents with: Physical Recording using [employer] software for draft documentation of the visit was discussed with the patient/authorized sales representative printing supplies; all questions welcomed and answered. Patient/authorized sales representative printing supplies agreed to proceed HPI Malcolm Mina is a 39 year old female who presents here today for Above Complaints. Patient has been in good health without recent hospitalizations, ER visits. Annual Wellness Exam: - Aletha Mina has had no recent hospitalizations or ED visits. - Feels safe at home. - No tobacco or drug use. - Consumes 1-2 alcoholic drinks, 2-4 times a month. - Planning to receive a flu shot in February at work. Snoring and Daytime Fatigue: - Increased snoring and daytime fatigue. - Sleeps approximately 6 hours per night, sometimes 8 hours on weekends. - Still feels tired even after 8 hours of sleep. Hypertension: - Taking labetalol BID. BP today borderline normal. Asymptomatic on current regimen. - Not checking BP regularly at home. Anxiety: - Managed with Zoloft; finds it helpful. - Missed doses during a recent trip, noticed increased anxiety. - No suicidal ideation or panic attacks. - Not currently attending counseling. Would like information for home. Past medical history, appointments, medications, allergies reviewed. Previous Medical History PAST MEDICAL HISTORY Diagnosis Date Anxiety with depression Carpal tunnel syndrome 2008 Essential hypertension Family history of colon cancer in mother age 62 Hemorrhoids History of colonic polyps 12/30/2022 Morbid obesity (HCC) PMH - PAST MEDICAL HISTORY OF granuloma anular Snoring Previous Surgical History PAST SURGICAL HISTORY Procedure Laterality Date COLONOSCOPY 08/2015 negative/normal COLONOSCOPY 12/19/2022 repeat in 5 years PAST SURGICAL HISTORY OF wisdom teeth SUCTION D & C 09/25/2018 [facility] Family History FAMILY HISTORY Problem Relation Age of Onset Hypertension Mother Colon Cancer Mother 62 Hypertension Father Heart Father [place] Glaucoma Father Hypertension Brother other (Crohn's Disease) Brother Cancer Maternal Grandmother breast and liver mets Arthritis Maternal Grandmother Heart Maternal Grandfather other (Dementia) Maternal Grandfather Heart Paternal Grandfather No Known Problems Daughter Patient Allergies ALLERGIES Allergen Reactions Lavender (Lavandula* Swelling Current Medications Current Outpatient Medications on File Prior to Visit Medication Sig sertraline (ZOLOFT) 50 mg tablet Take 1 tablet by mouth once daily. labetalol (TRANDATE) 200 mg tablet Take 1 tablet by mouth two times a day. mv-min/iron/folic/calcium/vitK (WOMEN'S MULTIVITAMIN ORAL) Take by mouth. uyta-uee-xpq-glw-wmjt-ibut-pec (FIBER 6) 1,000 mg tab Take 1 tablet by mouth once daily. CALCIUM ORAL Take 2 tablets by mouth once daily. No current facility-administered medications on file prior to visit. Social History SOCIAL HISTORY[1] Review of Symptoms REVIEW OF SYSTEMS GENERAL: No weight loss, malaise or fevers HEENT: Negative for frequent or significant headaches, No changes in hearing or vision, no nose bleeds or other nasal problems NECK: Negative for lumps, goiter, pain and significant neck swelling RESPIRATORY: Negative for cough, hemoptysis, wheezing, COPD, dyspnea or shortness of breath CARDIOVASCULAR: Negative for chest pain, leg swelling, hypertension, CHF or palpitations GI: No nausea, vomiting, or diarrhea : No history of dysuria, frequency or incontinence ESTIMATOR PRINTING: Negative for abnormal vaginal bleeding, abnormal vaginal discharge MUSCULOSKELETAL: Negative for joint pain or swelling, back pain or muscle pain SKIN: Negative for lesions, rash, and itching PSYCH: See HPI HEMATOLOGY/LYMPHOLOGY: Negative for prolonged bleeding, bruising easily or swollen nodes ENDOCRINE: Negative for cold or heat intolerance, polyuria, polydipsia and goiter NEURO: No history of headaches, syncope, paralysis, seizures or tremors EXAM: BP 138/88 Pulse 82 Ht 171.5 cm (5' 7.5) Wt 126.3 kg (278 lb 6.4 oz) LMP 12/23/2024 SpO2 98% BMI 42.96 kg/m General Appearance: Well appearing, alert, in no acute distress, well-hydrated, well nourished. and Morbidly obese. Skin: Skin color, texture, turgor normal, no suspicious rashes or lesions. Head: Normocephalic, no masses, lesions, tenderness or abnormalities. Eyes: Anicteric sclera. Pupils are equally round and reactive to light. Extraocular movements are intact. . Ears: External ears normal, canals clear. Nose/Sinuses: Nares normal, septum midline, mucosa normal, no drainage or sinus tenderness. Oropharynx: Lips, mucosa, and tongue normal, teeth and gums normal, oropharynx normal. Neck: Supple, no adenopathy; thyroid symmetric, normal size, no bruits. Lungs: Lungs clear to auscultation. No wheezing, rhonchi, rales.. Heart: RRR without murmur, gallop, or rubs. No ectopy. Abdomen: Normal abdominal exam, Abdomen soft, non-tender. Bowel sounds normal. No masses, organomegaly. Extremities: No deformities, edema, skin discoloration, clubbing or cyanosis. Good capillary refill. . Peripheral Pulses: Normal. Neurologic: CN II-XII grossly intact. Lymph Nodes: No cervical lymphadenopathy and No supraclavicular lymphadenopathy. Health Maintenance List Influenza Vaccine(1) due on 11/01/2025 Hepatitis B Vaccine(1 of 3 - 19+ 3-dose series) due on 01/18/2026 HPV Vaccine(1 - 3-dose SCDM series) due on 01/18/2026 Annual PCP Team Chronic Disease Visit due on 01/18/2026 Cervical Cancer Screening due on 10/23/2026 Colorectal Cancer Screening due on 12/20/2027 DTaP,Tdap,Td Vaccine(8 - Td or Tdap) due on 05/07/2029 HIV Screening Completed Hepatitis C Screening Discontinued 1. Annual physical exam (Z00.00) - No acute complaints or new diagnoses since last visit. - Up to date on health maintenance; flu shot scheduled at work in February. - Routine blood work ordered: CBC, CMP, fasting lipid panel, TSH, and diabetes screening. - Follow-up in 6 months. 2. Essential hypertension (I10) - BP today 138/88 mmHg; last visit 130/90 mmHg. - Continue labetalol BID. - Advised daily home BP monitoring for next 2 weeks; instructed to report readings consistently greater than or equal to140/90 mmHg for possible medication adjustment. - Discussed importance of BP control to reduce risk of heart attack and stroke. 3. Anxiety with depression (F41.8) - Stable on Zoloft; no suicidal ideation or panic attacks. - Provided information on local counseling services; discussed evidence supporting combined medication and counseling. 4. Morbid obesity with BMI of 40.0-44.9, adult (HCC) (E66.01) - Discussed ongoing need for weight loss through diet and exercise. - Provided pamphlet on 18-month intensive lifestyle treatment program; patient declined participation at this time. 5. Snoring (R06.83) 6. Daytime somnolence (R40.0) - High risk for KARYN given symptoms, hypertension, and elevated BMI. - Ordered home sleep apnea test. - Discussed risks of untreated KARYN, including hypertension, diabetes, arrhythmias, GA, stroke, and memory loss. - Explained potential need for CPAP therapy if KARYN confirmed. - Instructed to follow up sooner if KARYN confirmed and CPAP initiated. Hill Mai MD [1] Social History Tobacco Use Smoking status: Never Smokeless tobacco: Never Vaping Use Vaping status: Never Used Substance Use Topics Alcohol use: Yes Comment: occassionally, not while Drug use: Never documented in this encounter [facility] 11-16-2024 Instructions Hill Mai MD - 11/16/2024 11:14 AM EDT - Start the prednisone taper as follows using your 10 mg tablets: Take six tablets once daily for 3 days Then five tablets once daily for 3 days Then four tablets once daily for 3 days Then three tablets once daily for 3 days Then two tablets once daily for 3 days Then one tablet once daily for 3 days - Monitor your blood pressure while you re on the steroid taper: If any reading goes above 160/100, call our office right away - After you finish the taper, check your blood pressure again in about 1-2 weeks: If readings stay below 140/90, no additional blood pressure treatment is needed If readings remain high or you have concerns, let us know - To help prevent future poison aishwarya/oak rashes: Wear long sleeves, long pants, and gloves when near wooded or weedy areas As soon as you come inside, remove your clothes and wash them right away Shower promptly to wash off any plant oils - Call our office if you have any problems with the prednisone prescription - Schedule your wellness physical in about 2 months with O[facility]; our nurse will help set this up when you call documented in this encounter [facility] 11-16-2024 Note HNO ID: [id number] Author: HILL MAI MD Service: ? Author Type: Physician Type: Progress Notes Filed: 11/16/2024 11:29 Note Text: Chief Complaint Patient presents with: Rash: [facility] F[facility]U 7[facility]25. Seen for itchy rash. Suspect poison aishwarya. Was outside weed eating 2 days prior to rash. Completed prednisone taper today. New spots are appearing. Presented first on neck/jaw line. Rash is all over. Recording using [employer] software for draft documentation of the visit was discussed with the patient/authorized sales representative printing supplies; all questions welcomed and answered. Patient/authorized sales representative printing supplies agreed to proceed HPI Malcolm Mina is a 39 year old female who presents here today for Above Complaints. Pruritic Rash: - Developed after exposure to poison oak/aishwarya while weed eating a ditch. - Initially presented on the neck, prompting an urgent care visit on 11/10. - Treated with a 9-day prednisone taper (10 m tablets for 3 days, then 2 tablets for 3 days, then 1 tablet for 3 days). - Noted improvement in pruritus and rash during higher doses of prednisone. - New erythematous, raised lesions have appeared on the abdomen, neck, arms, and feet over the past 2-3 days. - Denies further exposure to poison oak/aishwarya. - Aletha has washed towels and bedding; no changes in soap due to known lavender allergy. - Family history of severe reactions to poison oak/aishwarya in mother. - Denies fever, chills, or purulent drainage. Past medical history, appointments, medications, allergies reviewed. Previous Medical History PAST MEDICAL HISTORY Diagnosis Date Anxiety with depression Carpal tunnel syndrome 2008 Essential hypertension Family history of colon cancer in mother age 62 Hemorrhoids History of colonic polyps 12/30/2022 Morbid obesity (HCC) PMH - PAST MEDICAL HISTORY OF granuloma anular Previous Surgical History PAST SURGICAL HISTORY Procedure Laterality Date COLONOSCOPY 08/2015 negative/normal COLONOSCOPY 12/19/2022 repeat in 5 years PAST SURGICAL HISTORY OF wisdom teeth SUCTION D AND C 09/25/2018 [facility] Family History FAMILY HISTORY Problem Relation Age of Onset Hypertension Mother Colon Cancer Mother 62 Hypertension Father Heart Father [place] Glaucoma Father Hypertension Brother other (Crohn's Disease) Brother Cancer Maternal Grandmother breast and liver mets Arthritis Maternal Grandmother Heart Maternal Grandfather other (Dementia) Maternal Grandfather Heart Paternal Grandfather No Known Problems Daughter Patient Allergies ALLERGIES Allergen Reactions Lavender (Lavandula* Swelling Current Medications Current Outpatient Medications on File Prior to Visit Medication Sig predniSONE (DELTASONE) 10 mg tablet Take 4 tablets by mouth once daily for 3 days, THEN 2 tablets once daily for 3 days, THEN 1 tablet once daily for 1 day. sertraline (ZOLOFT) 50 mg tablet Take 1 tablet by mouth once daily. labetalol (TRANDATE) 200 mg tablet Take 1 tablet by mouth two times a day. mv-min/iron/folic/calcium/vitK (WOMEN'S MULTIVITAMIN ORAL) Take by mouth. vcma-yjo-zbs-adk-tgvi-bfon-pec (FIBER 6) 1,000 mg tab Take 1 tablet by mouth once daily. CALCIUM ORAL Take 2 tablets by mouth once daily. No current facility-administered medications on file prior to visit. Social History Social History Tobacco Use Smoking status: Never Smokeless tobacco: Never Vaping Use Vaping status: Never Used Substance Use Topics Alcohol use: Yes Comment: occassionally, not while Drug use: Never Review of Symptoms REVIEW OF SYSTEMS See HPI EXAM: BP 130/90 Pulse 93 Ht 171.5 cm (5' 7.5) Wt 126.1 kg (278 lb) LMP 07/28/2024 (Exact Date) SpO2 97% BMI 42.90 kg/m? General Appearance: Well appearing, alert, in no acute distress, well-hydrated, well nourished.. Skin: scattered raised red rash on forearms, upper abdomen, lower legs and feet bilaterally without cellulitis, vesicles, or pustules. Consistent with poison aishwarya. Health Maintenance List Hepatitis C Screening Never done Hepatitis B Vaccine(1 of 3 - 19+ 3-dose series) Never done Covid-19 Vaccine() due on 01/04/2024 Influenza Vaccine(1) due on 01/03/2025 Annual PCP Team Chronic Disease Visit due on 11/16/2025 Cervical Cancer Screening due on 10/23/2026 Colorectal Cancer Screening due on 12/20/2027 DTaP,Tdap,Td Vaccine(8 - Td or Tdap) due on 05/07/2029 HIV Screening Completed 1. Poison aishwarya dermatitis (L23.7) - Persistent pruritic, erythematous, raised rash with new lesions developing despite completion of initial prednisone taper (10 m tablets for 3 days, then 2 tablets for 3 days, then 1 tablet for 3 days). - No signs of secondary infection; no fever or chills reported. - Initiated a more aggressive prednisone taper: 10 mg tablets, 6 tablets daily for 3 days, then 5 tablets daily for 3 days, then 4 tabl (more content not included)... [facility] 11-16-2024 History of Presen t illness Narrative Chief Complaint Patient presents with: Rash: [facility] F[facility]U 11/10/24. Seen for itchy rash. Suspect poison aishwarya. Was outside weed eating 2 days prior to rash. Completed prednisone taper today. New spots are appearing. Presented first on neck/jaw line. Rash is all over. Recording using [employer] software for draft documentation of the visit was discussed with the patient/authorized sales representative printing supplies; all questions welcomed and answered. Patient/authorized sales representative printing supplies agreed to proceed HPI Malcolm Mina is a 39 year old female who presents here today for Above Complaints. Pruritic Rash: - Developed after exposure to poison oak/aishwarya while weed eating a ditch. - Initially presented on the neck, prompting an urgent care visit on 11/10. - Treated with a 9-day prednisone taper (10 m tablets for 3 days, then 2 tablets for 3 days, then 1 tablet for 3 days). - Noted improvement in pruritus and rash during higher doses of prednisone. - New erythematous, raised lesions have appeared on the abdomen, neck, arms, and feet over the past 2-3 days. - Denies further exposure to poison oak/aishwarya. - Aletha has washed towels and bedding; no changes in soap due to known lavender allergy. - Family history of severe reactions to poison oak/aishwarya in mother. - Denies fever, chills, or purulent drainage. Past medical history, appointments, medications, allergies reviewed. Previous Medical History PAST MEDICAL HISTORY Diagnosis Date Anxiety with depression Carpal tunnel syndrome 2008 Essential hypertension Family history of colon cancer in mother age 62 Hemorrhoids History of colonic polyps 12/30/2022 Morbid obesity (HCC) PMH - PAST MEDICAL HISTORY OF granuloma anular Previous Surgical History PAST SURGICAL HISTORY Procedure Laterality Date COLONOSCOPY 08/2015 negative/normal COLONOSCOPY 12/19/2022 repeat in 5 years PAST SURGICAL HISTORY OF wisdom teeth SUCTION D & C 09/25/2018 [facility] Family History FAMILY HISTORY Problem Relation Age of Onset Hypertension Mother Colon Cancer Mother 62 Hypertension Father Heart Father [place] Glaucoma Father Hypertension Brother other (Crohn's Disease) Brother Cancer Maternal Grandmother breast and liver mets Arthritis Maternal Grandmother Heart Maternal Grandfather other (Dementia) Maternal Grandfather Heart Paternal Grandfather No Known Problems Daughter Patient Allergies ALLERGIES Allergen Reactions Lavender (Lavandula* Swelling Current Medications Current Outpatient Medications on File Prior to Visit Medication Sig predniSONE (DELTASONE) 10 mg tablet Take 4 tablets by mouth once daily for 3 days, THEN 2 tablets once daily for 3 days, THEN 1 tablet once daily for 1 day. sertraline (ZOLOFT) 50 mg tablet Take 1 tablet by mouth once daily. labetalol (TRANDATE) 200 mg tablet Take 1 tablet by mouth two times a day. mv-min/iron/folic/calcium/vitK (WOMEN'S MULTIVITAMIN ORAL) Take by mouth. asjw-nkc-jsk-prd-wkmi-prru-pec (FIBER 6) 1,000 mg tab Take 1 tablet by mouth once daily. CALCIUM ORAL Take 2 tablets by mouth once daily. No current facility-administered medications on file prior to visit. Social History Social History Tobacco Use Smoking status: Never Smokeless tobacco: Never Vaping Use Vaping status: Never Used Substance Use Topics Alcohol use: Yes Comment: occassionally, not while Drug use: Never Review of Symptoms REVIEW OF SYSTEMS See HPI EXAM: BP 130/90 Pulse 93 Ht 171.5 cm (5' 7.5) Wt 126.1 kg (278 lb) LMP 07/28/2024 (Exact Date) SpO2 97% BMI 42.90 kg/m General Appearance: Well appearing, alert, in no acute distress, well-hydrated, well nourished.. Skin: scattered raised red rash on forearms, upper abdomen, lower legs and feet bilaterally without cellulitis, vesicles, or pustules. Consistent with poison aishwarya. Health Maintenance List Hepatitis C Screening Never done Hepatitis B Vaccine(1 of 3 - 19+ 3-dose series) Never done Covid-19 Vaccine( season) due on 01/04/2024 Influenza Vaccine(1) due on 01/03/2025 Annual PCP Team Chronic Disease Visit due on 11/16/2025 Cervical Cancer Screening due on 10/23/2026 Colorectal Cancer Screening due on 12/20/2027 DTaP,Tdap,Td Vaccine(8 - Td or Tdap) due on 05/07/2029 HIV Screening Completed 1. Poison aishwarya dermatitis (L23.7) - Persistent pruritic, erythematous, raised rash with new lesions developing despite completion of initial prednisone taper (10 m tablets for 3 days, then 2 tablets for 3 days, then 1 tablet for 3 days). - No signs of secondary infection; no fever or chills reported. - Initiated a more aggressive prednisone taper: 10 mg tablets, 6 tablets daily for 3 days, then 5 tablets daily for 3 days, then 4 tablets daily for 3 days, then three tablets once daily for 3 days, then 2 tablets daily for 3 days, then 1 tablet daily for 3 days. - Discussed potential side effects of prednisone, including increased appetite, insomnia, and hypertension. - Prescription sent to [facility] pharmacy. - Advised patient on preventive measures to avoid future exposure, including wearing protective clothing and immediate washing with poison aishwarya wash after potential exposure. 2. Essential hypertension (I10) - Blood pressure readings elevated today, likely secondary to current prednisone use and recent caffeine intake. - Advised patient to monitor blood pressure at home. - If BP readings exceed 160/100 mmHg, patient to contact clinic immediately. - If BP normalizes (<140/90 mmHg) after completion of prednisone taper, no further intervention required. - Follow-up on blood pressure readings 1-2 weeks post prednisone taper completion. Hill Mai MD documented in this encounter [facility] 11-10-2024 Note HNO ID: [id number] Author: GODFREY BECK MD Service: ? Author Type: Physician Type: Progress Notes Filed: 11/10/2024 12:43 Note Text: [facility] Mina is a 39 year old female. Patient presents with: poison aishwarya: All over x 2 days Rash: Location: arms, torso, neck/jaw, fingers Duration: 3 days Pruritis: Yes Pain: No Change: spreading Bleeding/ulceration/blister/pust ule: red patches Contacts with rash: No Exposure: No new soaps, detergents, fabric softeners, lotions. Outdoor exposure: weed eating 2 days before rash. Change in medications: No. Recent illness: No. Treatment: calamine Review of Systems Objective BP 110/76 Pulse 79 Temp 36.7 ?C (98 ?F) (Tympanic) Resp 16 Wt 128.3 kg (282 lb 13.6 oz) LMP 07/28/2024 (Exact Date) SpO2 98% BMI 43.65 kg/m? Physical Exam Constitutional: General: She is not in acute distress. Skin: Comments: Slightly raised erythema and papules and patches on the arms, neck below the jaw, lateral and anterior mid torso. Sparse on the fingers. Neurological: Mental Status: She is alert. Latest Ref Rng 10/10/2023 Hemoglobin A1C 4.3 - 5.6 % 6.1 (H) {ASSESSMENT/PLAN: 1. Contact dermatitis due to plant - ICD9: 692.6, ICD10: L25.5 (primary diagnosis) - Oral Steriod tx -Prednisone taper. Previously tolerated without side effect. Patient cautioned on hyperglycemic effect of oral steroid. Risk outweighs benefit due to rash extending to the lower face. - discussed skin care of rash - follow up if symptoms persist or worsen. - PREDNISONE 10 MG TABLET 2. Impaired fasting glucose - ICD9: 790.21, ICD10: R73.01 Godfrey Beck MD Differential Diagnoses - Allergic contact dermatitis due to plants is more likely for the following reason(s): suggested by HANDP Procedures [facility] 11-10-2024 History of Presen t illness Narrative Images from the original note were not included. [facility] AG[facility] Mina is a 39 year old female. Patient presents with: poison aishwarya: All over x 2 days Rash: Location: arms, torso, neck/jaw, fingers Duration: 3 days Pruritis: Yes Pain: No Change: spreading Bleeding/ulceration/blister/pust ule: red patches Contacts with rash: No Exposure: No new soaps, detergents, fabric softeners, lotions. Outdoor exposure: weed eating 2 days before rash. Change in medications: No. Recent illness: No. Treatment: calamine Review of Systems Objective BP 110/76 Pulse 79 Temp 36.7 C (98 F) (Tympanic) Resp 16 Wt 128.3 kg (282 lb 13.6 oz) LMP 07/28/2024 (Exact Date) SpO2 98% BMI 43.65 kg/m Physical Exam Constitutional: General: She is not in acute distress. Skin: Comments: Slightly raised erythema and papules and patches on the arms, neck below the jaw, lateral and anterior mid torso. Sparse on the fingers. Neurological: Mental Status: She is alert. Latest Ref Rng 10/10/2023 Hemoglobin A1C 4.3 - 5.6 % 6.1 (H) {ASSESSMENT/PLAN: 1. Contact dermatitis due to plant - ICD9: 692.6, ICD10: L25.5 (primary diagnosis) - Oral Steriod tx -Prednisone taper. Previously tolerated without side effect. Patient cautioned on hyperglycemic effect of oral steroid. Risk outweighs benefit due to rash extending to the lower face. - discussed skin care of rash - follow up if symptoms persist or worsen. - PREDNISONE 10 MG TABLET 2. Impaired fasting glucose - ICD9: 790.21, ICD10: R73.01 Godfrey Beck MD Differential Diagnoses - Allergic contact dermatitis due to plants is more likely for the following reason(s): suggested by H&P Procedures documented in this encounter [facility] 08-12-2024 Note HNO ID: [id number] Author: COURTNEY LEWIS APRN.[facility] Service: ? Author Type: Nurse Practitioner Type: Progress Notes Filed: 08/12/2024 17:48 Note Text: [facility] Subjective Malcolm Mina is a 38 year old female. Patient presents with: Ear Pain: R ear pain and pressure, x 2 days Nasal congestion/ cold over the weekend 38 year old female with PMH HTN and anxiety presents for illness. Acute onset one week ago +cough +congestion +nasal drainage +sinus Right ear pain over past 2 days +feeling of pressure Denies SOB Denies dyspnea Denies abdominal pain Denies N/V/D Has used cold medicine Tylenol Denies tobacco usage The history is provided by the patient. No language tutor was used. Ear Pain This is a new problem. The current episode started in the past 7 days. The problem occurs constantly. The problem has been unchanged. Associated symptoms include congestion and coughing. Pertinent negatives include no abdominal pain, anorexia, arthralgias, change in bowel habit, chest pain, chills, diaphoresis, fatigue, fever, headaches, joint swelling, myalgias, nausea, neck pain, numbness, rash, sore throat, swollen glands, urinary symptoms, vertigo, visual change, vomiting or weakness. Nothing aggravates the symptoms. Treatments tried: cold medicine. The treatment provided no relief. PAST MEDICAL HISTORY Diagnosis Date Anxiety with depression Carpal tunnel syndrome 2008 Essential hypertension Family history of colon cancer in mother age 62 Hemorrhoids History of colonic polyps 12/30/2022 Morbid obesity (HCC) PMH - PAST MEDICAL HISTORY OF granuloma anular PAST SURGICAL HISTORY Procedure Laterality Date COLONOSCOPY 08/2015 negative/normal COLONOSCOPY 12/19/2022 repeat in 5 years PAST SURGICAL HISTORY OF wisdom teeth SUCTION D AND C 09/25/2018 [facility] ALLERGIES Lavender (Lavandula Angustifolia) MEDICATIONS sertraline (ZOLOFT) 50 mg tablet Take 1 tablet by mouth once daily. labetalol (TRANDATE) 200 mg tablet Take 1 tablet by mouth two times a day. mv-min/iron/folic/calcium/vitK (WOMEN'S MULTIVITAMIN ORAL) Take by mouth. efqf-aym-xky-okx-daud-kahj-pec (FIBER 6) 1,000 mg tab Take 1 tablet by mouth once daily. CALCIUM ORAL Take 2 tablets by mouth once daily. amoxicillin-clavulanate potassium (AUGMENTIN) 875-125 mg per tablet Take 1 tablet by mouth two times a day for 7 days. levonorgestrel (MIRENA) 20 mcg/24 hours (6 yrs) 52 mg IUD 1 Each by INTRAUTERINE route one time only for 1 dose. (Patient not taking: Reported on 08/12/2024) FAMILY HISTORY Problem Relation Age of Onset Hypertension Mother Colon Cancer Mother 62 Hypertension Father Heart Father [place] Glaucoma Father Hypertension Brother other (Crohn's Disease) Brother Cancer Maternal Grandmother breast and liver mets Arthritis Maternal Grandmother Heart Maternal Grandfather other (Dementia) Maternal Grandfather Heart Paternal Grandfather No Known Problems Daughter Social History Tobacco Use Smoking status: Never Smokeless tobacco: Never Vaping Use Vaping status: Never Used Substance Use Topics Alcohol use: Yes Comment: occassionally, not while Drug use: Never Review of Systems Constitutional: Negative for chills, diaphoresis, fatigue and fever. HENT: Positive for congestion and ear pain. Negative for sore throat. Eyes: Negative for pain, discharge, redness and itching. Respiratory: Positive for cough. Cardiovascular: Negative for chest pain. Gastrointestinal: Negative for abdominal pain, anorexia, change in bowel habit, nausea and vomiting. Musculoskeletal: Negative for arthralgias, joint swelling, myalgias and neck pain. Skin: Negative for rash. Allergic/Immunologic: Negative for environmental allergies, food allergies and immunocompromised state. Neurological: Negative for dizziness, vertigo, facial asymmetry, weakness, numbness and headaches. Hematological: Negative for adenopathy. Does not bruise/bleed easily. Psychiatric/Behavioral: Negative for agitation and behavioral problems. Objective BP 135/95 Pulse 95 Temp 36.1 ?C (97 ?F) Resp 20 Wt 129 kg (284 lb 6.3 oz) LMP 07/28/2024 (Exact Date) SpO2 98% BMI 43.88 kg/m? Physical Exam Vitals and nursing note reviewed. Constitutional: General: She is not in acute distress. Appearance: Normal appearance. She is normal weight. She is not ill-appearing, toxic-appearing or diaphoretic. HENT: Head: Normocephalic and atraumatic. Right Ear: Ear canal and external ear normal. Left Ear: Ear canal and external ear normal. Ears: Comments: Right TM erythematous and bulging. +purulence noted Nose: Nose normal. No congestion or rhinorrhea. Mouth/Throat: Mouth: Mucous membranes are moist. Pharynx: Posterior oropharyngeal erythema present. No oropharyngeal exudate. Eyes: General: Right eye: No discharge. Left ey (more content not included)... [facility] 08-12-2024 History of Presen t illness Narrative [facility] Subjective Malcolm Mina is a 38 year old female. Patient presents with: Ear Pain: R ear pain and pressure, x 2 days Nasal congestion/ cold over the weekend 38 year old female with PMH HTN and anxiety presents for illness. Acute onset one week ago +cough +congestion +nasal drainage +sinus Right ear pain over past 2 days +feeling of pressure Denies SOB Denies dyspnea Denies abdominal pain Denies N/V/D Has used cold medicine Tylenol Denies tobacco usage The history is provided by the patient. No language tutor was used. Ear Pain This is a new problem. The current episode started in the past 7 days. The problem occurs constantly. The problem has been unchanged. Associated symptoms include congestion and coughing. Pertinent negatives include no abdominal pain, anorexia, arthralgias, change in bowel habit, chest pain, chills, diaphoresis, fatigue, fever, headaches, joint swelling, myalgias, nausea, neck pain, numbness, rash, sore throat, swollen glands, urinary symptoms, vertigo, visual change, vomiting or weakness. Nothing aggravates the symptoms. Treatments tried: cold medicine. The treatment provided no relief. PAST MEDICAL HISTORY Diagnosis Date Anxiety with depression Carpal tunnel syndrome 2008 Essential hypertension Family history of colon cancer in mother age 62 Hemorrhoids History of colonic polyps 12/30/2022 Morbid obesity (HCC) PMH - PAST MEDICAL HISTORY OF granuloma anular PAST SURGICAL HISTORY Procedure Laterality Date COLONOSCOPY 08/2015 negative/normal COLONOSCOPY 12/19/2022 repeat in 5 years PAST SURGICAL HISTORY OF wisdom teeth SUCTION D & C 09/25/2018 [facility] ALLERGIES Lavender (Lavandula Angustifolia) MEDICATIONS sertraline (ZOLOFT) 50 mg tablet Take 1 tablet by mouth once daily. labetalol (TRANDATE) 200 mg tablet Take 1 tablet by mouth two times a day. mv-min/iron/folic/calcium/vitK (WOMEN'S MULTIVITAMIN ORAL) Take by mouth. gpwq-akg-wix-gol-jkso-oxhx-pec (FIBER 6) 1,000 mg tab Take 1 tablet by mouth once daily. CALCIUM ORAL Take 2 tablets by mouth once daily. amoxicillin-clavulanate potassium (AUGMENTIN) 875-125 mg per tablet Take 1 tablet by mouth two times a day for 7 days. levonorgestrel (MIRENA) 20 mcg/24 hours (6 yrs) 52 mg IUD 1 Each by INTRAUTERINE route one time only for 1 dose. (Patient not taking: Reported on 08/12/2024) FAMILY HISTORY Problem Relation Age of Onset Hypertension Mother Colon Cancer Mother 62 Hypertension Father Heart Father [place] Glaucoma Father Hypertension Brother other (Crohn's Disease) Brother Cancer Maternal Grandmother breast and liver mets Arthritis Maternal Grandmother Heart Maternal Grandfather other (Dementia) Maternal Grandfather Heart Paternal Grandfather No Known Problems Daughter Social History Tobacco Use Smoking status: Never Smokeless tobacco: Never Vaping Use Vaping status: Never Used Substance Use Topics Alcohol use: Yes Comment: occassionally, not while Drug use: Never Review of Systems Constitutional: Negative for chills, diaphoresis, fatigue and fever. HENT: Positive for congestion and ear pain. Negative for sore throat. Eyes: Negative for pain, discharge, redness and itching. Respiratory: Positive for cough. Cardiovascular: Negative for chest pain. Gastrointestinal: Negative for abdominal pain, anorexia, change in bowel habit, nausea and vomiting. Musculoskeletal: Negative for arthralgias, joint swelling, myalgias and neck pain. Skin: Negative for rash. Allergic/Immunologic: Negative for environmental allergies, food allergies and immunocompromised state. Neurological: Negative for dizziness, vertigo, facial asymmetry, weakness, numbness and headaches. Hematological: Negative for adenopathy. Does not bruise/bleed easily. Psychiatric/Behavioral: Negative for agitation and behavioral problems. Objective BP 135/95 Pulse 95 Temp 36.1 C (97 F) Resp 20 Wt 129 kg (284 lb 6.3 oz) LMP 07/28/2024 (Exact Date) SpO2 98% BMI 43.88 kg/m Physical Exam Vitals and nursing note reviewed. Constitutional: General: She is not in acute distress. Appearance: Normal appearance. She is normal weight. She is not ill-appearing, toxic-appearing or diaphoretic. HENT: Head: Normocephalic and atraumatic. Right Ear: Ear canal and external ear normal. Left Ear: Ear canal and external ear normal. Ears: Comments: Right TM erythematous and bulging. +purulence noted Nose: Nose normal. No congestion or rhinorrhea. Mouth/Throat: Mouth: Mucous membranes are moist. Pharynx: Posterior oropharyngeal erythema present. No oropharyngeal exudate. Eyes: General: Right eye: No discharge. Left eye: No discharge. Extraocular Movements: Extraocular movements intact. Conjunctiva/sclera: Conjunctivae normal. Pupils: Pupils are equal, round, and reactive to light. Cardiovascular: Rate and Rhythm: Normal rate and regular rhythm. Pulses: Normal pulses. Heart sounds: Normal heart sounds. No murmur heard. No friction rub. Pulmonary: Effort: Pulmonary effort is normal. No respiratory distress. Breath sounds: Normal breath sounds. No stridor. No wheezing, rhonchi or rales. Chest: Chest wall: No tenderness. Abdominal: General: Abdomen is flat. There is no distension. Palpations: Abdomen is soft. There is no mass. Tenderness: There is no abdominal tenderness. There is no right CVA tenderness, left CVA tenderness, guarding or rebound. Hernia: No hernia is present. Musculoskeletal: General: No swelling, tenderness, deformity or signs of injury. Normal range of motion. Cervical back: Normal range of motion and neck supple. No rigidity. Right lower leg: No edema. Left lower leg: No edema. Lymphadenopathy: Cervical: Cervical adenopathy present. Skin: General: Skin is warm and dry. Capillary Refill: Capillary refill takes less than 2 seconds. Coloration: Skin is not jaundiced or pale. Findings: No bruising, erythema, lesion or rash. Neurological: General: No focal deficit present. Mental Status: She is alert and oriented to person, place, and time. Cranial Nerves: No cranial nerve deficit. Sensory: No sensory deficit. Motor: No weakness. Coordination: Coordination normal. Gait: Gait normal. Psychiatric: Mood and Affect: Mood normal. Behavior: Behavior normal. Thought Content: Thought content normal. Judgment: Judgment normal. {ASSESSMENT/PLAN: 1. URI, acute - ICD9: 465.9, ICD10: J06.9 (primary diagnosis) - Symptomatic treatment with prn analgesia - Supportive care with fluids and rest - The patient may also use OTC cough and cold meds as needed, warm salt water gargles, throat lozenges and/or OTC throat spray as needed, and nasal saline gtts and suction prn. - Follow up in 3-5 days if symptoms persist or sooner if worsening of symptoms 2. Acute otitis media, right - ICD9: 382.9, ICD10: H66.91 - Will begin treatment with as per antibiotic as written, see orders - The patient should also be given OTC cough and cold meds as needed, warm salt water gargles, throat lozenges and/or OTC throat spray as needed, and nasal saline gtts and suction prn for the first 5-7 days of treatment. - Supportive care with plenty of fluids, rest, and analgesia prn. - Follow up in 3-5 days if symptoms persist or worsen. Courtney Lewis APRN.POWER PRESS TENDER History and Record Review External record(s) reviewed: prior inpatient record and prior outpatient record. Differential Diagnoses - AOM right, URI is more likely for the following reason(s): suggested by H&P Contributing Factors Social Determinants of Health significantly affecting care: alcohol use Chronic conditions affecting care: hypertension Disposition The patient was discharged. Procedures documented in this encounter [facility] 07-09-2024 Telephone encounter Note Prescription Refill Information The patient has been identified by name and date of : Yes Caregiver verified no other encounters exist for this prescription request: Yes Caregiver confirmed with patient/requestor that no other refills are due, in the near future, with this provider at this time: Yes The last office visit in the department: 10/10/2023 Does the patient have a future office visit with this provider/department: No Requested Prescriptions Pending Prescriptions Disp Refills sertraline (ZOLOFT) 50 mg tablet 90 tablet 1 Sig: Take 1 tablet by mouth once daily. Tasia Ramirez LPN July 09, 2024 10:47 AM [facility] 07-09-2024 Miscellaneous Notes Prescription Refill Information The patient has been identified by name and date of : Yes Caregiver verified no other encounters exist for this prescription request: Yes Caregiver confirmed with patient/requestor that no other refills are due, in the near future, with this provider at this time: Yes The last office visit in the department: 10/10/2023 Does the patient have a future office visit with this provider/department: No Requested Prescriptions Pending Prescriptions Disp Refills sertraline (ZOLOFT) 50 mg tablet 90 tablet 1 Sig: Take 1 tablet by mouth once daily. Tasia Ramirez LPN July 09, 2024 10:47 AM documented in this encounter [facility] 03-09-2024 Note HNO ID: [id number] Author: SADIA NATARAJAN MD Service: ? Author Type: Physician Type: Progress Notes Filed: 03/09/2024 17:15 Note Text: C Application Developer offered: Patient declinesSugar Pompa is a 38 year old who presents for an annual gynecologic exam without complaints. Menses: no menses - Mirena IUD. 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 PAST MEDICAL HISTORY Diagnosis Date Anxiety with depression Carpal tunnel syndrome 2008 Essential hypertension Family history of colon cancer in mother age 62 Hemorrhoids History of colonic polyps 12/30/2022 Morbid obesity (HCC) PMH - PAST MEDICAL HISTORY OF granuloma anular PAST SURGICAL HISTORY Procedure Laterality Date COLONOSCOPY 08/2015 negative/normal COLONOSCOPY 12/19/2022 repeat in 5 years PAST SURGICAL HISTORY OF wisdom teeth SUCTION D AND C 09/25/2018 [facility] FAMILY HISTORY Problem Relation Age of Onset Hypertension Mother Colon Cancer Mother 62 Hypertension Father Heart Father [place] Glaucoma Father Hypertension Brother other (Crohn's Disease) Brother Cancer Maternal Grandmother breast and liver mets Arthritis Maternal Grandmother Heart Maternal Grandfather other (Dementia) Maternal Grandfather Heart Paternal Grandfather No Known Problems Daughter SOCIAL HISTORY Social History Tobacco Use Smoking status: Never Smokeless tobacco: Never Vaping Use Vaping status: Never Used Substance Use Topics Alcohol use: Yes Comment: occassionally, not while Drug use: Never REVIEW OF SYSTEMS Abdomen: No abdominal pain, nausea, vomiting, diarrhea, or constipation. No bloating, early satiety, indigestion, or increased flatulence. Bladder: No dysuria, gross hematuria, urinary frequency, urinary urgency, or incontinence. Breast: No breast lumps, nipple d/c, overlying skin changes, redness or skin retraction. Allergies and current medication updated:Yes SENSITIVE EXAM: The sensitive examination was discussed with the Patient or Patient's Authorized [employer]. As applicable, any other physician, advance practice provider, medical student, or other health professional student that will be observing or involved in the sensitive examination for educational or training purposes was discussed with the Patient or Authorized [employer]. The Patient or Authorized [employer] has agreed to proceed with the sensitive examination. (Sensitive examination includes inspection and/or palpation of the breasts, pelvis, prostate and anorectal regions). EXAM: BP 136/80 Ht 5' 7.5 (1.72m) Wt 275 lb 6.4 oz (124.9kg) BMI 42.47 kg/(m2). GENERAL: pleasant, female in no apparent distress BREAST: soft, non-tender, symmetric, no dominant mass, normal nipple-areolar complex, no lymphadenopathy, and no nipple discharge CHEST: Normal inspiratory effort ABDOMEN: soft, non-tender, and no masses PELVIC: external genitalia normal, normal Bartholin's glands, urethra, Yetter's glands, no vulvar lesions, no cervical lesions, good vaginal support, physiologic discharge present, normal appearing perineal body and perianal region BIMANUAL: uterus normal size, shape and consistency, no adnexal masses, and non-tender RECTOVAGINAL: deferred. NEURO: alert and oriented x3,exam grossly non-focal EXTREMITIES: normal ASSESSMENT/PLAN: 1) Health maintenance: Pap/HPV up to date. Nutrition, exercise and routine health maintenance exams reviewed. 2) Contraception: none 3) Follow up one year or sooner as needed MD Aletha Montero presents for removal of IUD due to desire for . UNIVERSAL PROTOCOL / SAFETY CHECKLIST Procedure to be Performed: IUD Removal Sign In: A Moment of CARE was completed. Personnel directly involved with the procedure wore the appropriate PPE (Personal Protective Equipment). Patient/Surrogate Stated/Verified: PATIENT VERIFIED(optional for EMERGENT procedures): Patient name, Date of , Relevant allergies, and The intended procedure Time Out Communication: Intended patient and procedure match the source documents. Consent documented and matches the intended procedure. Sign Out: SIGN OUT (optional for EMERGENT procedures): No specimen collected. All instruments, equipment, possible retained foreign bodies accounted for. Post-procedure follow-up management communicated and Plan of Care Visit completed when applicable. PROCEDURE: Speculum placed in vagina, IUD string visualized and gras (more content not included)... [facility] 03-09-2024 History of Presen t illness Narrative C Application Developer offered: Patient declinesSugar Pompa is a 38 year old who presents for an annual gynecologic exam without complaints. Menses: no menses - Mirena IUD. 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 PAST MEDICAL HISTORY Diagnosis Date Anxiety with depression Carpal tunnel syndrome 2009 Essential hypertension Family history of colon cancer in mother age 62 Hemorrhoids History of colonic polyps 12/30/2022 Morbid obesity (HCC) PMH - PAST MEDICAL HISTORY OF granuloma anular PAST SURGICAL HISTORY Procedure Laterality Date COLONOSCOPY 08/2015 negative/normal COLONOSCOPY 12/19/2022 repeat in 5 years PAST SURGICAL HISTORY OF wisdom teeth SUCTION D & C 09/25/2018 [facility] FAMILY HISTORY Problem Relation Age of Onset Hypertension Mother Colon Cancer Mother 62 Hypertension Father Heart Father [place] Glaucoma Father Hypertension Brother other (Crohn's Disease) Brother Cancer Maternal Grandmother breast and liver mets Arthritis Maternal Grandmother Heart Maternal Grandfather other (Dementia) Maternal Grandfather Heart Paternal Grandfather No Known Problems Daughter SOCIAL HISTORY Social History Tobacco Use Smoking status: Never Smokeless tobacco: Never Vaping Use Vaping status: Never Used Substance Use Topics Alcohol use: Yes Comment: occassionally, not while Drug use: Never REVIEW OF SYSTEMS Abdomen: No abdominal pain, nausea, vomiting, diarrhea, or constipation. No bloating, early satiety, indigestion, or increased flatulence. Bladder: No dysuria, gross hematuria, urinary frequency, urinary urgency, or incontinence. Breast: No breast lumps, nipple d/c, overlying skin changes, redness or skin retraction. Allergies and current medication updated:Yes SENSITIVE EXAM: The sensitive examination was discussed with the Patient or Patient's Authorized [employer]. As applicable, any other physician, advance practice provider, medical student, or other health professional student that will be observing or involved in the sensitive examination for educational or training purposes was discussed with the Patient or Authorized [employer]. The Patient or Authorized [employer] has agreed to proceed with the sensitive examination. (Sensitive examination includes inspection and/or palpation of the breasts, pelvis, prostate and anorectal regions). EXAM: BP 136/80 Ht 5' 7.5 (1.72m) Wt 275 lb 6.4 oz (124.9kg) BMI 42.47 kg/(m^2). GENERAL: pleasant, female in no apparent distress BREAST: soft, non-tender, symmetric, no dominant mass, normal nipple-areolar complex, no lymphadenopathy, and no nipple discharge CHEST: Normal inspiratory effort ABDOMEN: soft, non-tender, and no masses PELVIC: external genitalia normal, normal Bartholin's glands, urethra, Yetter's glands, no vulvar lesions, no cervical lesions, good vaginal support, physiologic discharge present, normal appearing perineal body and perianal region BIMANUAL: uterus normal size, shape and consistency, no adnexal masses, and non-tender RECTOVAGINAL: deferred. NEURO: alert and oriented x3,exam grossly non-focal EXTREMITIES: normal ASSESSMENT/PLAN: 1) Health maintenance: Pap/HPV up to date. Nutrition, exercise and routine health maintenance exams reviewed. 2) Contraception: none 3) Follow up one year or sooner as needed Sadia Natarajan MD Aletha presents for removal of IUD due to desire for . UNIVERSAL PROTOCOL / SAFETY CHECKLIST Procedure to be Performed: IUD Removal Sign In: A Moment of CARE was completed. Personnel directly involved with the procedure wore the appropriate PPE (Personal Protective Equipment). Patient/Surrogate Stated/Verified: PATIENT VERIFIED(optional for EMERGENT procedures): Patient name, Date of , Relevant allergies, and The intended procedure Time Out Communication: Intended patient and procedure match the source documents. Consent documented and matches the intended procedure. Sign Out: SIGN OUT (optional for EMERGENT procedures): No specimen collected. All instruments, equipment, possible retained foreign bodies accounted for. Post-procedure follow-up management communicated and Plan of Care Visit completed when applicable. PROCEDURE: Speculum placed in vagina, IUD string visualized and grasped with ring forceps. ASSESSMENT/PLAN: IUD removed without difficulty, intact, and patient tolerated procedure well. Contraception plans: none Reviewed pre-conception guidelines including folic acid supplementation. MD Juliana Monteroally signed by Sadia Natarajan MD at 03/09/2024 5:15 PM EST documented in this encounter [facility] 02-05-2024 Telephone encounter Note That is fine. Order filed. Sadia Natarajan MD [facility] 02-05-2024 Miscellaneous Notes That is fine. Order filed. Sadia Natarajan MD IUD removal order pended. Patient last seen for annual exam on 10/24/22. documented in this encounter [facility] 02-05-2024 Telephone encounter Note IUD removal order pended. Patient last seen for annual exam on 10/24/22. [facility] 01-21-2024 Telephone encounter Note Prescription Refill Information The patient has been identified by name and date of : Yes Caregiver verified no other encounters exist for this prescription request: Yes Caregiver confirmed with patient/requestor that no other refills are due, in the near future, with this provider at this time: Yes The last office visit in the department: 10/10/23 Does the patient have a future office visit with this provider/department: No Yearly due October 2024 Requested Prescriptions Pending Prescriptions Disp Refills labetalol (TRANDATE) 200 mg tablet 180 tablet 2 Sig: Take 1 tablet by mouth two times a day. Mary Beth Brantley LPN January 21, 2024 10:38 AM [facility] 01-21-2024 Miscellaneous Notes Prescription Refill Information The patient has been identified by name and date of : Yes Caregiver verified no other encounters exist for this prescription request: Yes Caregiver confirmed with patient/requestor that no other refills are due, in the near future, with this provider at this time: Yes The last office visit in the department: 10/10/23 Does the patient have a future office visit with this provider/department: No Yearly due October 2024 Requested Prescriptions Pending Prescriptions Disp Refills labetalol (TRANDATE) 200 mg tablet 180 tablet 2 Sig: Take 1 tablet by mouth two times a day. Mary Beth Brantley LPN January 21, 2024 10:38 AM documented in this encounter [facility] 10-29-2023 Telephone encounter Note Patient sent [employer] message requesting the following refill. Requested Prescriptions Pending Prescriptions Disp Refills sertraline (ZOLOFT) 50 mg tablet 90 tablet 1 Sig: Take 1 tablet by mouth once daily. Patient last appointment: 10/10/2023 Patient Phone numbers: [phone] (home) [phone] (work) Request is for script(s) to be escript to pharmacy. Katlyn Blankenship MA [facility] 10-29-2023 Miscellaneous Notes Patient sent [employer] message requesting the following refill. Requested Prescriptions Pending Prescriptions Disp Refills sertraline (ZOLOFT) 50 mg tablet 90 tablet 1 Sig: Take 1 tablet by mouth once daily. Patient last appointment: 10/10/2023 Patient Phone numbers: [phone] (home) [phone] (work) Request is for script(s) to be escript to pharmacy. Katlyn Blankenship MA documented in this encounter [facility] 10-28-2023 History of Presen t illness Narrative Images from the original note were not included. This note was created using NoteWriter. Subjective Malcolm Mina is a 37 year old female. HPI 37-year-old female presents for rash. Patient states that she was out in her [place] a little over a week ago. She states that she knows the next day she had some poison aishwarya on her face. She states that the rash is now spread to her arms, abdomen, ankles. States is very itchy. She has been using poison aishwarya wash, calamine lotion, cortisone cream, and Benadryl. She still has itching and states the rash is still spreading. No fevers. No difficulty swallowing or breathing. She has had reactions to poison in the past. No new lotions detergents body washes foods or medication. No other complaint. PAST MEDICAL HISTORY Diagnosis Date Anxiety with depression Carpal tunnel syndrome 2008 Essential hypertension Family history of colon cancer in mother age 62 Hemorrhoids History of colonic polyps 12/30/2022 Morbid obesity (HCC) PMH - PAST MEDICAL HISTORY OF granuloma anular PAST SURGICAL HISTORY Procedure Laterality Date COLONOSCOPY 08/2015 negative/normal COLONOSCOPY 12/19/2022 repeat in 5 years PAST SURGICAL HISTORY OF wisdom teeth SUCTION D & C 09/25/2018 [facility] ALLERGIES Lavender (Lavandula Angustifolia) MEDICATIONS albuterol HFA (PROAIR HFA) 90 mcg/actuation inhaler Inhale 2 Puffs as instructed every 4 hours as needed. sertraline (ZOLOFT) 50 mg tablet Take 1 tablet by mouth once daily. labetalol (TRANDATE) 200 mg tablet Take 1 tablet by mouth twice daily. levonorgestrel (MIRENA) 20 mcg/24 hours (6 yrs) 52 mg IUD 1 Each by INTRAUTERINE route one time only for 1 dose. mv-min/iron/folic/calcium/vitK (WOMEN'S MULTIVITAMIN ORAL) Take by mouth. arrf-btt-puv-niu-ewre-efye-pec (FIBER 6) 1,000 mg tab Take 1 tablet by mouth once daily. CALCIUM ORAL Take 2 tablets by mouth once daily. predniSONE (DELTASONE) 10 mg tablet Take 4 tabs daily for 3 days, then 2 tabs daily for 3 days, then 1 tab daily for 3 days with food. FAMILY HISTORY Problem Relation Age of Onset Hypertension Mother Colon Cancer Mother 62 Hypertension Father Heart Father [place] Glaucoma Father Hypertension Brother other (Crohn's Disease) Brother Cancer Maternal Grandmother breast and liver mets Arthritis Maternal Grandmother Heart Maternal Grandfather other (Dementia) Maternal Grandfather Heart Paternal Grandfather No Known Problems Daughter Social History Tobacco Use Smoking status: Never Smokeless tobacco: Never Vaping Use Vaping Use: Never used Substance Use Topics Alcohol use: Yes Comment: occassionally, not while Drug use: Never Review of Systems Constitutional: Negative for chills and fever. HENT: Negative for congestion, ear pain and sore throat. Respiratory: Negative for cough and shortness of breath. Cardiovascular: Negative for chest pain. Gastrointestinal: Negative for diarrhea and vomiting. Skin: Positive for rash. Objective BP 144/88 Pulse 98 Temp 37.1 C (98.8 F) Resp 16 Wt 127.5 kg (281 lb 1.4 oz) LMP (LMP Unknown) SpO2 98% BMI 43.15 kg/m Physical Exam Vitals and nursing note reviewed. Constitutional: General: She is not in acute distress. Appearance: Normal appearance. She is not toxic-appearing. HENT: Nose: Nose normal. Mouth/Throat: Mouth: Mucous membranes are moist. Eyes: Conjunctiva/sclera: Conjunctivae normal. Cardiovascular: Rate and Rhythm: Normal rate and regular rhythm. Pulmonary: Effort: Pulmonary effort is normal. Breath sounds: Normal breath sounds. Skin: Findings: Rash present. Rash is vesicular. Comments: Vesicular rash noted over face, abdomen, arms, ankles, consistent with a contact dermatitis. No fluctuance or abscess. No drainage. No lymphatic streaking. Neurological: Mental Status: She is alert. Assessment and Plan ASSESSMENT/PLAN: 1. Allergic contact dermatitis due to plants, except food - ICD9: 692.6, ICD10: L23.7 - Oral Steriod tx -Prednisone taper - Anti itch therapy of OTC 1% Hydrocortisone cream, Calomine lotion, and Oral Benydryl recommended prn - discussed skin care of rash - follow up if symptoms persist or worsen. Diagnosis and treatment plan were discussed and questions were answered to the patient's satisfaction. Pt acknowledged understanding of concepts and follow up plan. Specific signs and symptoms that would indicate the need for higher level of care were discussed in detail warranting prompt ER evaluation. WILLY Stewart documented in this encounter [facility] 10-10-2023 History of Presen t illness Narrative 10/09/2023 Patient presents with: Yearly Exam SUBJECTIVE: This is a 37 year old that is here today for Above Complaints. Since last office visit has been in good health without ER visits or hospitalizations. HTN: Patient is compliant with meds Yes Monitors bp at home: No. Denies side effects: Yes. Chest pain: No. Dyspnea: No. Edema: No. Palpitations: No. Syncope: No. Headache: occasionally around Menses . Dizziness: No. ANXIETY/DEPRESSION: taking Zoloft as prescribed without side effects. Does not attend counseling. Denies SI, HI or insomnia Completed colonoscopy last December due to family hx of colon cancer. Her most recent colonoscopy showed a serrated polyp, therefore she was advised to repeat in 5 years Does not follow any specific diet Was trying to go to the gym but recently hasn't been going PAST MEDICAL HISTORY Diagnosis Date Anxiety with depression Carpal tunnel syndrome 2008 Essential hypertension Family history of colon cancer in mother age 62 Hemorrhoids History of colonic polyps 12/30/2022 Morbid obesity (HCC) PMH - PAST MEDICAL HISTORY OF granuloma anular ALLERGIES Lavender (Lavandula Angustifolia) MEDICATIONS Current Outpatient Medications Medication Sig benzonatate (TESSALON PERLE) 100 mg capsule Take 2 capsules by mouth three times a day as needed. albuterol HFA (PROAIR HFA) 90 mcg/actuation inhaler Inhale 2 Puffs as instructed every 4 hours as needed. sertraline (ZOLOFT) 50 mg tablet Take 1 tablet by mouth once daily. labetalol (TRANDATE) 200 mg tablet Take 1 tablet by mouth twice daily. levonorgestrel (MIRENA) 20 mcg/24 hours (6 yrs) 52 mg IUD 1 Each by INTRAUTERINE route one time only for 1 dose. mv-min/iron/folic/calcium/vitK (WOMEN'S MULTIVITAMIN ORAL) Take by mouth. vntk-nrf-jrr-bmw-pmcl-huob-pec (FIBER 6) 1,000 mg tab Take 1 tablet by mouth once daily. CALCIUM ORAL Take 2 tablets by mouth once daily. No current facility-administered medications for this visit. Medications and allergies reviewed by this provider. SOCIAL HISTORY Social History Tobacco Use Smoking status: Never Smokeless tobacco: Never Vaping Use Vaping Use: Never used Substance Use Topics Alcohol use: Yes Comment: occassionally, not while Drug use: Never REVIEW OF SYSTEMS GENERAL: No weight loss, malaise or fevers HEENT: Negative for frequent or significant headaches, No changes in hearing or vision, no nose bleeds or other nasal problems NECK: Negative for lumps, goiter, pain and significant neck swelling RESPIRATORY: Negative for cough, hemoptysis, wheezing, COPD, dyspnea or shortness of breath CARDIOVASCULAR: Negative for chest pain, leg swelling, hypertension, CHF or palpitations GI: No nausea, vomiting, or diarrhea : No history of dysuria, frequency or incontinence ESTIMATOR PRINTING: Negative for abnormal vaginal bleeding, abnormal vaginal discharge MUSCULOSKELETAL: Negative for joint pain or swelling, back pain or muscle pain SKIN: Negative for lesions, rash, and itching PSYCH: Negative for sleep disturbance, mood disorder and recent psychosocial stressors HEMATOLOGY/LYMPHOLOGY: Negative for prolonged bleeding, bruising easily or swollen nodes ENDOCRINE: Negative for cold or heat intolerance, polyuria, polydipsia and goiter NEURO: No history of syncope, paralysis, seizures or tremors All other reviewed and negative other than HPI. OBJECTIVE: BP 133/82 Pulse 84 Resp 16 Ht 171.9 cm (5' 7.68) Wt 127 kg (280 lb) LMP (LMP Unknown) SpO2 97% BMI 42.98 kg/m . Vital signs reviewed by this provider. APPEARANCE Well appearing, alert, in no acute distress, well-hydrated, well nourished. EYES conjunctiva and sclera normal. EARS External ears normal, canals clear NECK Supple, no adenopathy; thyroid symmetric, normal size, no bruits HEART RRR with normal S1 and S2, no murmurs, no gallops, no JVD appreciated LUNG clear to auscultation. No wheezes, rhonchi or rales ABDOMEN bowel sounds normoactive, no bruits, soft, non-tender, non-distended EXTREMITIES Extremities normal, No deformities, No skin discoloration, and No edema SKIN Skin color, texture, turgor normal, no suspicious rashes or lesions to exposed skin Latest Ref Rng 10/12/2022 Protein, Total 6.3 - 8.0 g/dL 7.3 Albumin 3.9 - 4.9 g/dL 4.2 Calcium 8.5 - 10.2 mg/dL 9.5 Bilirubin, Total 0.2 - 1.3 mg/dL 0.3 Alkaline Phosphatase 34 - 123 U/L 113 AST 13 - 35 U/L 20 ALT 7 - 38 U/L 18 Glucose 74 - 99 mg/dL 116 (H) BUN 7 - 21 mg/dL 10 Creatinine 0.58 - 0.96 mg/dL 0.82 Sodium 136 - 144 mmol/L 140 Potassium 3.7 - 5.1 mmol/L 4.8 Chloride 97 - 105 mmol/L 104 CO2 22 - 30 mmol/L 25 Anion Gap 9 - 18 mmol/L 11 eGFR >=60 mL/min/1.73m 96 Cholesterol, Total <200 mg/dL 170 Triglyceride <150 mg/dL 103 HDL Cholesterol >39 mg/dL 41 Non HDL Cholesterol <130 mg/dL 129 Fasting Time hrs 12 VLDL Cholesterol <30 mg/dL 21 TC:HDL Ratio <5.10 4.15 LDL Cholesterol <100 mg/dL 108 (H) LDL:HDL Ratio <2.54 2.63 (H) Legend: (H) High Hepatitis C Screening Never done BP Controlled (<130/80) Never done Hepatitis B Vaccine(1 of 3 - 19+ 3-dose series) Never done Covid-19 Vaccine(2022- season) due on 01/03/2023 Annual PCP Team Chronic Disease Visit due on 10/09/2024 Pap Testing due on 10/23/2026 HPV Testing due on 10/23/2026 Colorectal Cancer Screening due on 12/20/2027 DTaP,Tdap,Td Vaccine(8 - Td or Tdap) due on 05/07/2029 Influenza Vaccine Completed HIV Screening Completed HPV Vaccine Aged Out ASSESSMENT/PLAN: 1. Wellness examination - ICD9: V70.0, ICD10: Z00.00 (primary diagnosis) - Counseled on healthy diet and regular exercise - Discussed need and benefit for weight loss. BMI 42.98 kg/(m^2) - Follow up for annual exam in one year - COMPLETE BLOOD COUNT 2. Anxiety with depression - ICD9: 300.4, ICD10: F41.8 - stable on current regime - follow-up as needed 3. Essential hypertension - ICD9: 401.9, ICD10: I10 - Controlled - Continue current medications - Recommend home blood pressure monitoring, to bring results to next visit - Encouraged sodium restriction, DASH or Mediterranean diet - Recommend regular aerobic exercise - Discussed need for and benefit of weight loss. BMI 42.98 kg/(m^2) - Follow up in one year for hypertension visit - COMPREHENSIVE METABOLIC PANEL 4. Screening for cholesterol level - ICD9: V77.91, ICD10: Z13.220 - LIPID PANEL BASIC 5. Elevated glucose - ICD9: 790.29, ICD10: R73.09 - HEMOGLOBIN A1C Violeta Augustin APRN.CNP Prescription instructions reviewed with patient as applicable. Patient advised if symptoms do not improve or if symptoms worsen sooner, to contact their primary care physician. Potential red flag symptoms discussed with the patient. Reviewed appropriate action plan to take if red flag symptoms occur. Patient agreeable to treatment plan. documented in this encounter [facility] 04-17-2023 Instructions Jaida Garces APRN.CNP - 04/17/2023 5:56 PM EST Tessalon Perles 2 every 8 hours, do not combine this with robitussin or delsym Albuterol inhaler as ordered * Prednisone 40 mg (2 tablets) per day for 5 days, take in morning or early in day * Do not NSAIDs during this 5 day course (ibuprofen, naproxen, Motrin, Aleve, Advil) Tylenol only during prednisone use * Follow up with primary care provider if no improvement with treatment * Seek medical care immediately, call 911, go to ER if you have chest pain, difficulty breathing, shortness of breath, inability to swallow. documented in this encounter [facility] 04-17-2023 History of Presen t illness Narrative Subjective The history is provided by the patient. No language tutor was used. HPI Malcolm Mina is a 37 year old female who presents today for CC of cough, congestion, wheezing and runny nose for a week. She has used OTC mucinex dm with short term relief. She denies any fever, nausea, vomiting or diarrhea. Her and daughter have the same symptoms. BP 122/80 Pulse 104 Temp 37.2 C (99 F) (Tympanic) Resp 18 Wt 125.5 kg (276 lb 9.6 oz) LMP (LMP Unknown) SpO2 98% BMI 43.41 kg/m Social History Tobacco Use Smoking status: Never Smokeless tobacco: Never Vaping Use Vaping Use: Never used Substance Use Topics Alcohol use: Yes Comment: occassionally, not while Drug use: Never PAST MEDICAL HISTORY Diagnosis Date Anxiety with depression Carpal tunnel syndrome 2009 Essential hypertension Family history of colon cancer in mother age 62 Hemorrhoids History of colonic polyps 12/30/2022 Morbid obesity (HCC) PMH - PAST MEDICAL HISTORY OF granuloma anular I have confirmed and edited as necessary, the [facility] Review of Systems Constitutional: Negative for chills and fever. HENT: Positive for congestion, sinus pain and sore throat. Negative for ear pain. Respiratory: Positive for cough and wheezing. Negative for sputum production and shortness of breath. Cardiovascular: Negative for chest pain. Gastrointestinal: Negative for abdominal pain, diarrhea, nausea and vomiting. Musculoskeletal: Negative for myalgias. Neurological: Negative for headaches. Objective Physical Exam Vitals and nursing note reviewed. HENT: Head: Normocephalic and atraumatic. Right Ear: Tympanic membrane, ear canal and external ear normal. Left Ear: Tympanic membrane, ear canal and external ear normal. Nose: Mucosal edema, congestion and rhinorrhea present. Right Sinus: No maxillary sinus tenderness or frontal sinus tenderness. Left Sinus: No maxillary sinus tenderness or frontal sinus tenderness. Mouth/Throat: Pharynx: Uvula midline. No oropharyngeal exudate or posterior oropharyngeal erythema. Cardiovascular: Rate and Rhythm: Normal rate and regular rhythm. Heart sounds: Normal heart sounds. Pulmonary: Effort: Pulmonary effort is normal. Breath sounds: Decreased air movement present. Wheezing present. Lymphadenopathy: Head: Right side of head: No submental, submandibular or tonsillar adenopathy. Left side of head: No submental, submandibular or tonsillar adenopathy. Cervical: No cervical adenopathy. Skin: General: Skin is warm and dry. Neurological: Mental Status: She is alert. Psychiatric: Mood and Affect: Affect normal. ASSESSMENT/PLAN: 1. URI with cough and congestion - ICD9: 465.9, ICD10: J06.9 (primary diagnosis) - Discussed viral etiology and rationale for treatment. - Symptomatic treatment with prn analgesia - Supportive care with fluids and rest - The patient may also use warm salt water gargles, throat lozenges and/or OTC throat spray as needed. - Tessalon Perles 2 every 8 hours, do not combine this with robitussin or delsym - Follow up in one week if symptoms persist or sooner if worsening of symptoms - Declines viral testing panel 2. Wheezing - ICD9: 786.07, ICD10: R06.2 Prednisone 40 mg (2-20mg tablets) po QD for 5 days Albuterol inhaler prn Follow up with PCP as needed Diagnosis and treatment plan were discussed and questions were answered to the patient's satisfaction. Pt acknowledged understanding of concepts and follow up plan. Specific signs and symptoms that would indicate the need for higher level of care were discussed in detail warranting prompt ER evaluation. Jaida Garces APRN.POWER PRESS TENDER documented in this encounter [facility] 12-30-2022 Miscellaneous Notes FOLLOW UP ENDOSCOPY - RESULTS AND RECOMMENDATIONS NAME: Malcolm Mina [facility] NO.: [id number] : 1985 DATE: December 30, 2022 PRIMARY CARE PROVIDER: Hill Mai MD REFERRING PHYSICIAN: Sadia Natarajan Malcolm Mina is a patient referred for endoscopy for a family history of colon cancer. I performed lower endoscopy on December 19, 2022. The patient was found to have: Lower Endoscopy Impression: - Two diminutive polyps in the rectum and in the ascending colon, removed with a cold biopsy forceps. Resected and retrieved. - The examination was otherwise normal on direct and retroflexion views. Pathology demonstrated: A. Colon, ascending, polyp, biopsy: - Sessile serrated polyp. B. Rectum, polyp, biopsy: - Hyperplastic polyp and focal prominent lymphoid aggregate. IMPRESSION: small serrated polyp PLAN: INSTRUCTIONS FOLLOWING A POLYP FOUND AT COLONOSCOPY You were found to have a serrated polyp. I recommend you undergo repeat endoscopy in 5 years. If you note bleeding, change in bowel habits, or other suspicious colon related symptoms before that time, those symptoms should be evaluated as necessary. If you have any difficulties or concerns, you should contact our office immediately. The patient is instructed to follow-up with your primary care provider I have instructed my staff to forward the above information to the patient and to the appropriate providers documented in this encounter [facility] 12-19-2022 Nurse Note Arrived in phase II via cart. Left lateral position. Sedated, but responds to verbal stimuli. Color normal; skin warm and dry. Respirations wnl and unlabored. Abdomen soft and with + bowel sounds in quads X 4. Patient resting comfortably. Family at bedside. Dr. Solorzano at bedside to review procedure and recommendations. Sophie Carroll RN documented in this encounter [facility] 12-19-2022 History and physical note PROCEDURAL SEDATION HISTORY AND PHYSICAL EXAM SERVICE DATE: 12/19/2022 SERVICE TIME: 9:10 AM Subjective HPI: This is a 37 year old female who presents for screening colonoscopy PAST ANESTHESIA HISTORY: No history of adverse event PAST MEDICAL HISTORY Diagnosis Date Anxiety with depression Carpal tunnel syndrome 2008 Essential hypertension Family history of colon cancer in mother age 62 Hemorrhoids Morbid obesity (HCC) PMH - PAST MEDICAL HISTORY OF granuloma anular PAST SURGICAL HISTORY Procedure Laterality Date COLONOSCOPY 08/2015 negative/normal PAST SURGICAL HISTORY OF wisdom teeth SUCTION D & C 09/25/2018 [facility] Prior to Admission medications as of 12/19/22 0829 Medication Sig Last Dose Taking sertraline (ZOLOFT) 50 mg tablet Take 1 tablet by mouth once daily. 12/18/2022 Yes labetalol (TRANDATE) 200 mg tablet Take 1 tablet by mouth twice daily. 12/19/2022 at 0630 Yes fluocinonide (LIDEX) 0.05 % cream Apply to affected skin trunk lower extremities twice a day x 2wks then twice weekly prn flare Patient not taking: Reported on 02/13/2022 levonorgestrel (MIRENA) 20 mcg/24 hours (6 yrs) 52 mg IUD 1 Each by INTRAUTERINE route one time only for 1 dose. mv-min/iron/folic/calcium/vitK (WOMEN'S MULTIVITAMIN ORAL) Take by mouth. 12/16/2022 uamd-kee-pcz-vum-wlne-kzyj-pec (FIBER 6) 1,000 mg tab Take 1 tablet by mouth once daily. CALCIUM ORAL Take 2 tablets by mouth once daily. 12/16/2022 ALLERGIES Allergen Reactions Lavender (Lavandula* Swelling Objective PHYSICAL EXAM: The remainder of the physical exam is noncontributory. AIRWAY: Airway Visualization of Uvula: Yes Mouth opening greater than 2 fingerbreadths: Yes Neck Full Range of Motion: Yes LUNGS: Lungs clear to auscultation CARDIAC: Regular rhythm,Regular rate Assessment/Plan ASA Class: ASA Class:: Patient with mild systemic disease Active Problems: * No active hospital problems. * Resolved Problems: * No resolved hospital problems. * Medication and Non-Pharmacologic VTE Prophylaxis/Anticoagulants VTE Prophylaxis: VTE prophylaxis appropriate Provisional Diagnosis/Treatment Plan: screening colonoscopy SEDATION GOAL: Moderate SIGNATURE: Jarrod Solorzano MD PATIENT NAME: Malcolm Mina DATE: December 19, 2022 TIME: 9:10 AM documented in this encounter [facility] 10-24-2022 History of Presen t illness Narrative TR OPEN ACCESS QUESTIONNAIRE 1. Are you currently having any new or unusual stomach/gastrointestinal issues at this time such as constipation, diarrhea, abdominal pain, rectal bleeding etc?No 2. Do you have any difficulty swallowing? No 3. Do you have any implanted devices such as a defibrillator, pacemaker, cardiac stents or deep brain stimulator? No 4. Do you take any Blood thinners such as Coumadin, Plavix, Xarelto, Eliquis, Brilinta or any other blood thinner? No 5. Do you have any new or past cardiac (heart) or pulmonary (lung) issues? No 6. Do you currently use any oxygen? No 7. Have you been hospitalized in the past 6 weeks? No 8. Have you had difficulty with anesthesia previously re: Difficult intubation? No Other difficulty or allergic reaction to anesthesia other than post op N/V? No 9. Are you on dialysis? No 10. Do you have any bleeding disorders such as hemophilia or Factor 5? No 11. Are you an Insulin Dependent Diabetic? No IF ANY OF THE TOP ELEVEN QUESTIONS ARE ANSWERED YES PLEASE SCHEDULE THE PATIENT FOR A CONSULT. scheduled 12. Is the patient's BMI 40 or greater? Yes :Body mass index is 43.57 kg/m .. 13. Do you take any narcotics or anti-Anxiety medications? Yes / Zoloft 14. Do you use any illegal or recreational drugs including marijuana? No 15. Any alcohol use: YES: What type of alcohol, how much and how often do you drink? : 1-2 drinks every 2 weeks 16. Have you been diagnosed with chronic liver disease such as hepatitis or cirrhosis? No 17. Do you have a seizure disorder? No 18. Do you have ulcerative colitis or Crohn's disease? No 19. Are you or could you be ? No 20. Any other important health information we should be made aware of prior to your colonoscopy? No To be completed by LIP: Did patient have MAC anesthesia with a previous endoscopy procedure? No Patient appropriate for Open Access Colonoscopy: Yes: appropriate for Open Access Procedure Checklist: Prior to closing the encounter: Complete questionnaire: Yes Confirm Prep order has been Ordered/Pended: Yes. Patient's procedure could be delayed if not given the script for the prep. Please ensure the prep is escripted to pharmacy or printed. Instructions for the prep will print upon filing or pending this smartset. Please send all open access questionnaires to [facility] Pool #[id number] C Application Developer offered: Patient declines. Pompa is a 36 year old who presents for an annual gynecologic exam. Menses: no menses - Mirena IUD. 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 PAST MEDICAL HISTORY Diagnosis Date Anxiety with depression Carpal tunnel syndrome 2009 Essential hypertension Family history of colon cancer in mother age 62 Hemorrhoids Morbid obesity (HCC) PMH - PAST MEDICAL HISTORY OF granuloma anular PAST SURGICAL HISTORY Procedure Laterality Date COLONOSCOPY 08/2015 negative/normal PAST SURGICAL HISTORY OF wisdom teeth SUCTION D & C 09/25/2018 [facility] FAMILY HISTORY Problem Relation Age of Onset Hypertension Mother Colon Cancer Mother 62 Hypertension Father Heart Father [place] Glaucoma Father Hypertension Brother other (Crohn's Disease) Brother Cancer Maternal Grandmother breast and liver mets Arthritis Maternal Grandmother Heart Maternal Grandfather other (Dementia) Maternal Grandfather Heart Paternal Grandfather No Known Problems Daughter SOCIAL HISTORY Social History Tobacco Use Smoking status: Never Smokeless tobacco: Never Vaping Use Vaping Use: Never used Substance Use Topics Alcohol use: Yes Comment: occassionally, not while Drug use: Never REVIEW OF SYSTEMS Abdomen: No abdominal pain, nausea, vomiting, diarrhea, or constipation. No bloating, early satiety, indigestion, or increased flatulence. Bladder: No dysuria, gross hematuria, urinary frequency, urinary urgency, or incontinence. Breast: No breast lumps, nipple d/c, overlying skin changes, redness or skin retraction. Allergies and current medication updated:Yes EXAM: BP 144/92 Ht 5' 6.93 (1.70m) Wt 277 lb 9.6 oz (125.9kg) BMI 43.57 kg/(m^2). GENERAL: pleasant, female in no apparent distress BREAST: soft, non-tender, symmetric, no dominant mass, normal nipple-areolar complex, no lymphadenopathy, and no nipple discharge CHEST: Normal inspiratory effort ABDOMEN: soft, non-tender, and no masses PELVIC: external genitalia normal, normal Bartholin's glands, urethra, Yetter's glands, no vulvar lesions, no cervical lesions, good vaginal support, physiologic discharge present, normal appearing perineal body and perianal region BIMANUAL: uterus normal size, shape and consistency, no adnexal masses, and non-tender RECTOVAGINAL: deferred. NEURO: alert and oriented x3,exam grossly non-focal EXTREMITIES: normal ASSESSMENT/PLAN: 1) Health maintenance: Pap/HPV up to date. Mammogram starting age 40. Nutrition, exercise and routine health maintenance exams reviewed. 2) Contraception: IUD. 3) FH colon cancer - colonoscopy referal 4) Follow up one year or sooner as needed Sadia Natarajan MD documented in this encounter [facility] 10-24-2022 Instructions Yaneli Briggs Ma - 10/24/2022 4:02 PM EDT Images from the original note were not included. Miralax/Dulcolax Bowel Prep For this bowel preparation, you will need to purchase the following medications at any pharmacy: Over the counter Miralax (generic name is polyethylene glycol) 8.3 oz or 238 grams Four (4) Dulcolax (generic name is Bisacodyl) tablets 3 days prior to your procedure, you need to be on a low fiber diet (Such as popcorn, beans, seeds, nuts, salad and raw vegetables, corn, fresh and dried fruit and multi-grain bread) YOU MUST BE ON CLEAR LIQUIDS FOR 2 FULL DAYS PRIOR TO YOUR COLONOSCOPY Day one which would be two days before your colonoscopy, you will need to be on clear liquids all day. You may have coffee or tea-black only (no cream), clear broths (beef, chicken or vegetable), apple juice, white grape juice, pop, Gatorade, Powerade, lemonade, Jello, popsicles, Rudy-aid, and water-But nothing red or dark purple in color and no dairy products, tomato or orange juices. Day two which would be the day before your colonoscopy continue clear liquids all day as above. And follow the instructions below: 8:00 AM - Mix the Miralax with 64 oz of Gatorade or another clear liquid of choice and place in refrigerator. Most people say the drink is better cold. 4:00 PM - Take 2 of the Dulcolax tablets with 8 oz of water. 6:00 PM - Start to drink the Miralax mixture. You must finish it by midnight. 8:00 PM - Take the other 2 Dulcolax tablets with 8 oz of water. You may continue to drink clear liquids while you are taking your prep and after you finish it as long as it is before midnight. Drink lots of fluids so you don t become dehydrated. Nothing to drink after midnight the night before the procedure unless you are instructed differently by the physician or nurses. Please remember to take your normal medications the morning of the procedure with a small sip of water especially your blood pressure medications. If you are diabetic, you need to contact your physician about how to take your diabetic medications and/or insulin during the prepping period and the day of your procedure. Any questions please call: Dr. Solis or Dr. Solorzano [phone] Viki Oshea [phone] Dr. Hui [phone] [facility] nurses [phone] documented in this encounter [facility] 10-09-2022 History of Presen t illness Narrative 10/09/2022 Patient presents with: Yearly Exam SUBJECTIVE: This is a 36 year old that is here today for Above Complaints. Since last office visit has been in good health without ER visits or hospitalizations. HTN: Patient is compliant with meds Yes Monitors bp at home: occasionally . Denies side effects: Yes. Chest pain: No. Dyspnea: No. Edema: No. Palpitations: No. Syncope: No. Headache: occasionally which is normal for her . Dizziness: No. ANXIETY AND DEPRESSION: taking Zoloft as prescribed without side effects. On a waiting list for counseling. Denies SI, HI or insomnia PAST MEDICAL HISTORY Diagnosis Date Anxiety with depression Carpal tunnel syndrome 2009 Essential hypertension Family history of colon cancer in mother age 62 Hemorrhoids Morbid obesity (HCC) PMH - PAST MEDICAL HISTORY OF granuloma anular ALLERGIES Lavender (Lavandula Angustifolia) MEDICATIONS Current Outpatient Medications Medication Sig sertraline (ZOLOFT) 50 mg tablet Take 1 tablet by mouth once daily. labetalol (TRANDATE) 100 mg tablet Take 2 tablets by mouth twice daily. levonorgestrel (MIRENA) 20 mcg/24 hours (6 yrs) 52 mg IUD 1 Each by INTRAUTERINE route one time only for 1 dose. mv-min/iron/folic/calcium/vitK (WOMEN'S MULTIVITAMIN ORAL) Take by mouth. fluocinonide (LIDEX) 0.05 % cream Apply to affected skin trunk lower extremities twice a day x 2wks then twice weekly prn flare (Patient not taking: Reported on 02/13/2022) uctl-zdu-ogi-agy-vkyc-dpua-pec (FIBER 6) 1,000 mg tab Take 1 tablet by mouth once daily. CALCIUM ORAL Take 2 tablets by mouth once daily. No current facility-administered medications for this visit. Medications and allergies reviewed by this provider. SOCIAL HISTORY Social History Tobacco Use Smoking status: Never Smokeless tobacco: Never Vaping Use Vaping Use: Never used Substance Use Topics Alcohol use: Yes Comment: occassionally, not while Drug use: Never REVIEW OF SYSTEMS GENERAL: No weight loss, malaise or fevers HEENT: No changes in hearing or vision, no nose bleeds or other nasal problems NECK: Negative for lumps, goiter, pain and significant neck swelling RESPIRATORY: Negative for cough, hemoptysis, wheezing, COPD, dyspnea or shortness of breath CARDIOVASCULAR: Negative for chest pain, leg swelling, hypertension, CHF or palpitations GI: No nausea, vomiting, or diarrhea : No history of dysuria, frequency or incontinence ESTIMATOR PRINTING: Negative for abnormal vaginal bleeding, abnormal vaginal discharge MUSCULOSKELETAL: Negative for joint pain or swelling,or muscle pain. Occasional back pain SKIN: Negative for lesions, rash, and itching PSYCH: Negative for sleep disturbance, mood disorder and recent psychosocial stressors HEMATOLOGY/LYMPHOLOGY: Negative for prolonged bleeding, bruising easily or swollen nodes ENDOCRINE: Negative for cold or heat intolerance, polyuria, polydipsia and goiter NEURO: No history of syncope, paralysis, seizures or tremors All other reviewed and negative other than HPI. OBJECTIVE: BP 128/86 Pulse 93 Resp 16 Ht 170 cm (5' 6.93) Wt 126.6 kg (279 lb 3.2 oz) LMP 07/01/2022 SpO2 97% BMI 43.82 kg/m . Vital signs reviewed by this provider. APPEARANCE Well appearing, alert, in no acute distress, well-hydrated, well nourished. and Obese EYES onjunctiva and sclera normal. EARS External ears normal, canals clear NECK Supple, no adenopathy; thyroid symmetric, normal size, no bruits HEART RRR with normal S1 and S2, no murmurs, no gallops, no JVD appreciated LUNG clear to auscultation. No wheezes, rhonchi or rales EXTREMITIES Extremities normal, No deformities, No skin discoloration, No edema, and Normal pulses bilaterally. SKIN Skin color, texture, turgor normal, no suspicious rashes or lesions to exposed skin HEPATITIS B(1 of 3 - 3-dose series) Never done HEPATITIS C SCREENING Never done BP CONTROLLED (<130/80) Never done COVID-19 VACCINE(4 - Booster for Pfizer series) due on 06/29/2021 INFLUENZA(Season Ended) due on 01/03/2023 ANNUAL PCP TEAM CHRONIC DISEASE VISIT due on 10/10/2023 PAP TESTING due on 10/23/2026 HPV TESTING due on 10/23/2026 DTAP,TDAP,TD(8 - Td or Tdap) due on 05/07/2029 HIV SCREENING Completed ASSESSMENT/PLAN: 1. Wellness examination - ICD9: V70.0, ICD10: Z00.00 (primary diagnosis) - Counseled on healthy diet and regular exercise - Calcium intake with supplements or by diet of 1000 mg/day for under 50, 7971-6405 mg/day for 50+ - Discussed need and benefit for weight loss. BMI 43.82 kg/(m^2) - Follow up for annual exam in one year - LIPID PANEL BASIC - COMP METABOLIC PANEL 2. Essential hypertension - ICD9: 401.9, ICD10: I10 - Controlled - Continue current medications - Recommend home blood pressure monitoring, to bring results to next visit - Encouraged sodium restriction, DASH or Mediterranean diet - Recommend regular aerobic exercise - Discussed need for and benefit of weight loss. BMI 43.82 kg/(m^2) - Reviewed risks of hypertension and principles of treatment - Follow up in one year for hypertension visit, sooner if needed - COMP METABOLIC PANEL 3. Screening for hyperlipidemia - ICD9: V77.91, ICD10: Z13.220 - LIPID PANEL BASIC 4. Encounter for immunization - ICD9: V03.89, ICD10: Z23 - PFIZER-BIONTECH COVID-19 BIVALENT VACCINE, AGE 12+ YR Violeta Augustin APRN.CNP Prescription instructions reviewed with patient as applicable. Patient advised if symptoms do not improve or if symptoms worsen sooner, to contact their primary care physician. Potential red flag symptoms discussed with the patient. Reviewed appropriate action plan to take if red flag symptoms occur. Patient agreeable to treatment plan. documented in this encounter [facility] 08-02-2022 History of Presen t illness Narrative Subjective Ear Problem Associated symptoms include coughing. Pertinent negatives include no diarrhea, sore throat or vomiting. Malcolm Mina is a 36 year old female who presents with cough for past 4 days. This morning she had extreme pain in her left ear and popping in the ear throughout the day. Cough has been nonproductive and is worse at night. She has not had a fever. Her has had a cold recently. She took OTC cough medication. Review of Systems Constitutional: Negative for chills and fever. HENT: Positive for congestion, ear pain and tinnitus. Negative for sore throat. Respiratory: Positive for cough. Negative for sputum production, shortness of breath and wheezing. Cardiovascular: Negative. Gastrointestinal: Negative for diarrhea, nausea and vomiting. Musculoskeletal: Negative for myalgias. BP 138/86 Pulse (!) 126 Temp 36.7 C (98.1 F) (Tympanic) Resp 18 Wt 125.9 kg (277 lb 9.6 oz) LMP 07/01/2022 SpO2 97% BMI 42.56 kg/m PAST MEDICAL HISTORY Diagnosis Date Anxiety with depression Carpal tunnel syndrome 2009 Essential hypertension Family history of colon cancer in mother age 62 Hemorrhoids Morbid obesity (HCC) PMH - PAST MEDICAL HISTORY OF granuloma anular PAST SURGICAL HISTORY Procedure Laterality Date COLONOSCOPY 08/2015 negative/normal PAST SURGICAL HISTORY OF wisdom teeth SUCTION D & C 09/25/2018 [facility] ALLERGIES Lavender (Lavandula Angustifolia) MEDICATIONS sertraline (ZOLOFT) 50 mg tablet Take 1 tablet by mouth once daily. labetalol (TRANDATE) 100 mg tablet Take 2 tablets by mouth twice daily. mv-min/iron/folic/calcium/vitK (WOMEN'S MULTIVITAMIN ORAL) Take by mouth. wczi-joo-nnk-abs-wrng-yktw-pec (FIBER 6) 1,000 mg tab Take 1 tablet by mouth once daily. CALCIUM ORAL Take 2 tablets by mouth once daily. amoxicillin (AMOXIL) 875 mg tablet Take 1 tablet by mouth twice daily for 7 days. benzonatate (TESSALON PERLE) 100 mg capsule Take 2 capsules by mouth three times daily as needed for up to 10 days. fluocinonide (LIDEX) 0.05 % cream Apply to affected skin trunk lower extremities twice a day x 2wks then twice weekly prn flare (Patient not taking: Reported on 02/13/2022) levonorgestrel (MIRENA) 20 mcg/24 hours (6 yrs) 52 mg IUD 1 Each by INTRAUTERINE route one time only for 1 dose. FAMILY HISTORY Problem Relation Age of Onset Hypertension Mother Colon Cancer Mother 62 Hypertension Father Heart Father [place] Glaucoma Father Hypertension Brother other (Crohn's Disease) Brother Cancer Maternal Grandmother breast and liver mets Arthritis Maternal Grandmother Heart Maternal Grandfather other (Dementia) Maternal Grandfather Heart Paternal Grandfather No Known Problems Daughter Social History Tobacco Use Smoking status: Never Smokeless tobacco: Never Vaping Use Vaping Use: Never used Substance Use Topics Alcohol use: Yes Comment: occassionally, not while Drug use: Never Objective Physical Exam Vitals and nursing note reviewed. Constitutional: Appearance: Normal appearance. HENT: Right Ear: Tympanic membrane, ear canal and external ear normal. Left Ear: A middle ear effusion is present. Tympanic membrane is erythematous and bulging. Cardiovascular: Rate and Rhythm: Normal rate and regular rhythm. Heart sounds: Normal heart sounds. Pulmonary: Effort: Pulmonary effort is normal. No respiratory distress. Breath sounds: Normal breath sounds. No wheezing or rales. Neurological: Mental Status: She is alert. ASSESSMENT/PLAN: 1. Other acute nonsuppurative otitis media of left ear, recurrence not specified - ICD9: 381.00, ICD10: H65.192 (primary diagnosis) - Will begin treatment with as per antibiotic as written, see orders - Supportive care with plenty of fluids, rest, and analgesia prn. - AMOXICILLIN 875 MG TABLET 2. Viral URI with cough - ICD9: 465.9, ICD10: J06.9 - Discussed viral etiology and rationale for treatment. - Symptomatic treatment with prn analgesia - Supportive care with fluids and rest - BENZONATATE 100 MG CAPSULE - Follow-up with your PCP in 3-5 days if symptoms have not improved or sooner if symptoms worsen - Discussed red flags and need for immediate medical evaluation if any occur. - Discussed supportive care treatment with fluids, rest and analgesia. - Discussed expected course of illness Brittny Lui APRN.POWER PRESS TENDER documented in this encounter [facility] 08-02-2022 Instructions Brittny Lui APRN.CNP - 08/02/2022 5:43 PM EDT ASSESSMENT/PLAN: 1. Other acute nonsuppurative otitis media of left ear, recurrence not specified - ICD9: 381.00, ICD10: H65.192 (primary diagnosis) - Will begin treatment with as per antibiotic as written, see orders - Supportive care with plenty of fluids, rest, and analgesia prn. - AMOXICILLIN 875 MG TABLET 2. Viral URI with cough - ICD9: 465.9, ICD10: J06.9 - Discussed viral etiology and rationale for treatment. - Symptomatic treatment with prn analgesia - Supportive care with fluids and rest - BENZONATATE 100 MG CAPSULE - Follow-up with your PCP in 3-5 days if symptoms have not improved or sooner if symptoms worsen - Discussed red flags and need for immediate medical evaluation if any occur. - Discussed supportive care treatment with fluids, rest and analgesia. - Discussed expected course of illness Brittny Lui APRN.CNP OTITIS MEDIA GENERAL INFORMATION: Otitis media is an infection of the middle ear. The middle ear sits behind the eardrum. This infection may be caused by a virus or bacteria and often follows a cold. Children often have repeat ear infections. Otitis media is not contagious. INSTRUCTIONS: 1. An antibiotic has been prescribed. It should be taken exactly as prescribed. Do not stop the medicine even if the symptoms go away. 2. Qbgp-qbq-zbgjrwg pain medication may be taken or other pain medication as prescribed by the doctor. 3. Nothing should be placed in the ear unless instructed by your doctor. 4. The patient may return to school/daycare or work when the temperature is normal (98.6 F or 37 C). 5. The patient should not swim while the ear is infected. CONTACT YOUR DOCTOR IF YOU OR YOUR CHILD: 1. Does not feel better within 36 hours. 2. Develops a temperature over 102E F (39E C). 3. Starts vomiting or has diarrhea. 4. Develops drainage from the affected ear. 5. Has any new problem that may be related to the medicine prescribed. RETURN TO THE ED IF: 1. You or your child has a severe headache or pain around the ear. 2. You or your child notice swelling around the ear. 3. You or your child has a seizure (convulsion), twitching of the facial muscles, or passes out. 4. You or your child is dizzy, has a stiff neck, or cannot walk or talk normally. 5. Your child becomes more irritable or listless (not interested in his or her surroundings, does not get soothed by you holding him or her). Treatment for Viral Upper Respiratory Tract Infections Your body will kill off the virus by itself. Additionally, you can prime your body's immune system. This may help you get better more quickly. Drink lots of fluids Make sure you are eating well Get plenty of rest We do not have any medications that kill off these viruses. Antibiotics are used to treat bacterial infections; however, they are not active against viral infections. There are some things that might help you feel better, though. Vaporizers, humidifiers, hot showers, and hot fluids help open respiratory and sinus passages [place] Nasal Mehama may offer relief of nasal and head congestion Da's Vapor Rub may relieve congestion Tylenol and Advil help control fevers and headaches Salt water gargles help relieve sore throats Chloraceptic spray or throat lozenges may also help relieve sore throat symptoms Occasionally, viral infections turn into something more serious. You should see your doctor or return to the Urgent Care if: You have fevers for longer than five days You have fevers above 102 degrees You are still sick after 10 days You have shortness of breath or wheezing After several days you are getting worse rather than better documented in this encounter [facility] 05-27-2022 Miscellaneous Notes Patient is due for follow-up. Please assist in scheduling. Violeta Augustin APRN.CNP Last office visit: 05/07/21 F/u scheduled: none Jennie Khan Ma documented in this encounter [facility] 02-13-2022 History of Presen t illness Narrative This note was created using Gel[employer]. Subjective Malcolm Mina is a 36 year old female. 36 year old female with PMH HTN, anxiety and depression presents for left ear pain. Acute onset around 0200 this morning. States she woke up from sleeping and States she blew her nose [place] an explosion in her left ear Dull ache throbbing States that she has been sick with a URI over the past week. +cough +nasal congestion Denies fever or chills. Denies skin rash or lesions. Denies reduced hearing or drainage from ear. 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 The history is provided by the patient. No language tutor was used. URI She complains of cough. There is no chest tightness, difficulty breathing, frequent throat clearing, hemoptysis, hoarse voice, shortness of breath, sputum production or wheezing. This is a new problem. The current episode started today. The problem occurs constantly. The problem has been gradually worsening. The cough is non-productive. Associated symptoms include ear congestion, ear pain, headaches, nasal congestion and rhinorrhea. Pertinent negatives include no appetite change, chest pain, dyspnea on exertion, fever, heartburn, malaise/fatigue, myalgias, orthopnea, PND, postnasal drip, sneezing, sore throat, sweats, trouble swallowing or weight loss. Her symptoms are aggravated by nothing. Her symptoms are alleviated by nothing. She reports no improvement on treatment. There are no known risk factors for lung disease. There is no history of asthma, bronchiectasis, bronchitis, COPD, emphysema or pneumonia. PAST MEDICAL HISTORY Diagnosis Date Anxiety with depression Carpal tunnel syndrome 2009 Essential hypertension Family history of colon cancer in mother age 62 Hemorrhoids Morbid obesity (HCC) PMH - PAST MEDICAL HISTORY OF granuloma anular PAST SURGICAL HISTORY Procedure Laterality Date COLONOSCOPY 08/2015 negative/normal PAST SURGICAL HISTORY OF wisdom teeth SUCTION D & C 09/25/2018 [facility] ALLERGIES No Known Drug Allergies MEDICATIONS labetalol (TRANDATE) 100 mg tablet Take 2 tablets by mouth twice daily. sertraline (ZOLOFT) 50 mg tablet Take 1 tablet by mouth once daily. levonorgestrel (MIRENA) 20 mcg/24 hours (6 yrs) 52 mg IUD 1 Each by INTRAUTERINE route one time only for 1 dose. mv-min/iron/folic/calcium/vitK (WOMEN'S MULTIVITAMIN ORAL) Take by mouth. ucbx-fbd-gdd-snr-zpnp-uzsv-pec (FIBER 6) 1,000 mg tab Take 1 tablet by mouth once daily. CALCIUM ORAL Take 2 tablets by mouth once daily. amoxicillin (AMOXIL) 875 mg tablet Take 1 tablet by mouth twice daily for 7 days. fluocinonide (LIDEX) 0.05 % cream Apply to affected skin trunk lower extremities twice a day x 2wks then twice weekly prn flare (Patient not taking: Reported on 02/13/2022) FAMILY HISTORY Problem Relation Age of Onset Hypertension Mother Colon Cancer Mother 62 Hypertension Father Heart Father [place] Glaucoma Father Hypertension Brother other (Crohn's Disease) Brother Cancer Maternal Grandmother breast and liver mets Arthritis Maternal Grandmother Heart Maternal Grandfather other (Dementia) Maternal Grandfather Heart Paternal Grandfather No Known Problems Daughter Social History Tobacco Use Smoking status: Never Smokeless tobacco: Never Vaping Use Vaping Use: Never used Substance Use Topics Alcohol use: Yes Comment: occassionally, not while Drug use: Never Review of Systems Constitutional: Negative for appetite change, chills, fever, malaise/fatigue and weight loss. HENT: Positive for congestion, ear pain and rhinorrhea. Negative for hoarse voice, postnasal drip, sneezing, sore throat and trouble swallowing. Eyes: Negative for pain, discharge, redness and itching. Respiratory: Positive for cough. Negative for apnea, hemoptysis, sputum production, choking, chest tightness, shortness of breath and wheezing. Cardiovascular: Negative for chest pain, dyspnea on exertion, palpitations, leg swelling and PND. Gastrointestinal: Negative for abdominal pain, diarrhea, heartburn, nausea and vomiting. Musculoskeletal: Negative for arthralgias, back pain, gait problem and myalgias. Skin: Negative for color change, pallor, rash and wound. Allergic/Immunologic: Negative for environmental allergies, food allergies and immunocompromised state. Neurological: Positive for headaches. Negative for dizziness, facial asymmetry, light-headedness and numbness. Hematological: Negative for adenopathy. Does not bruise/bleed easily. Psychiatric/Behavioral: Negative for agitation and behavioral problems. Objective BP 128/76 Pulse 98 Temp 36.4 C (97.6 F) Resp 18 Wt 122 kg (269 lb) LMP 09/05/2020 SpO2 98% BMI 41.24 kg/m Physical Exam Vitals and nursing note reviewed. Constitutional: General: She is not in acute distress. Appearance: Normal appearance. She is normal weight. She is not ill-appearing, toxic-appearing or diaphoretic. HENT: Head: Normocephalic and atraumatic. Right Ear: Ear canal and external ear normal. Left Ear: Ear canal and external ear normal. Ears: Comments: Left TM erythematous and bulging. EAC normal. No mastoid tenderness. Nose: Nose normal. No congestion or rhinorrhea. Mouth/Throat: Mouth: Mucous membranes are moist. Pharynx: No oropharyngeal exudate or posterior oropharyngeal erythema. Eyes: General: Right eye: No discharge. Left eye: No discharge. Extraocular Movements: Extraocular movements intact. Conjunctiva/sclera: Conjunctivae normal. Pupils: Pupils are equal, round, and reactive to light. Cardiovascular: Rate and Rhythm: Normal rate and regular rhythm. Pulses: Normal pulses. Heart sounds: Normal heart sounds. No murmur heard. No friction rub. Pulmonary: Effort: Pulmonary effort is normal. No respiratory distress. Breath sounds: Normal breath sounds. No stridor. No wheezing, rhonchi or rales. Chest: Chest wall: No tenderness. Abdominal: General: Abdomen is flat. There is no distension. Palpations: Abdomen is soft. There is no mass. Tenderness: There is no abdominal tenderness. There is no right CVA tenderness, left CVA tenderness, guarding or rebound. Hernia: No hernia is present. Musculoskeletal: General: No swelling, tenderness, deformity or signs of injury. Normal range of motion. Cervical back: Normal range of motion and neck supple. No rigidity. Right lower leg: No edema. Left lower leg: No edema. Lymphadenopathy: Cervical: No cervical adenopathy. Skin: General: Skin is warm and dry. Capillary Refill: Capillary refill takes less than 2 seconds. Coloration: Skin is not jaundiced or pale. Findings: No bruising, erythema, lesion or rash. Neurological: General: No focal deficit present. Mental Status: She is alert and oriented to person, place, and time. Cranial Nerves: No cranial nerve deficit. Sensory: No sensory deficit. Motor: No weakness. Coordination: Coordination normal. Gait: Gait normal. Psychiatric: Mood and Affect: Mood normal. Behavior: Behavior normal. Thought Content: Thought content normal. Judgment: Judgment normal. Assessment and Plan ASSESSMENT/PLAN: 1. URI, acute - ICD9: 465.9, ICD10: J06.9 (primary diagnosis) - Symptomatic treatment with prn analgesia - Supportive care with fluids and rest - The patient may also use OTC cough and cold meds as needed, warm salt water gargles, throat lozenges and/or OTC throat spray as needed, and nasal saline gtts and suction prn. - Follow up in 3-5 days if symptoms persist or sooner if worsening of symptoms 2. Acute otitis media, left - ICD9: 382.9, ICD10: H66.92 - Will begin treatment with as per antibiotic as written, see orders - The patient should also be given OTC cough and cold meds as needed, warm salt water gargles, throat lozenges and/or OTC throat spray as needed, and nasal saline gtts and suction prn for the first 5-7 days of treatment. - Supportive care with plenty of fluids, rest, and analgesia prn. - Follow up in 3-5 days if symptoms persist or worsen. Courtney Lewis APRN.JOHNNIE documented in this encounter [facility] 11-12-2021 Miscellaneous Notes Patient phones requesting refills as follows: Pending Prescriptions Disp Refills LABETALOL 100 MG TABLET 120 tablet 5 Sig: Take 2 tablets by mouth twice daily. TOAN: No BOLA 05/07/21 No upcoming appointment scheduled. Please review and advise. Isha Hernandez LPN documented in this encounter [facility] 10-23-2021 History of Presen t illness Narrative Aletha is a 35 year old who presents for an annual gynecologic exam. Menses: light monthly menses (spotting) - Mirena IUD. 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 PAST MEDICAL HISTORY Diagnosis Date Anxiety with depression Carpal tunnel syndrome 2008 Essential hypertension Family history of colon cancer in mother age 62 Hemorrhoids Morbid obesity (HCC) PMH - PAST MEDICAL HISTORY OF granuloma anular PAST SURGICAL HISTORY Procedure Laterality Date COLONOSCOPY 08/2015 negative/normal PAST SURGICAL HISTORY OF wisdom teeth SUCTION D & C 09/25/2018 [facility] FAMILY HISTORY Problem Relation Age of Onset Hypertension Mother Colon Cancer Mother 62 Hypertension Father Heart Father [place] Glaucoma Father Hypertension Brother other (Crohn's Disease) Brother Cancer Maternal Grandmother breast and liver mets Arthritis Maternal Grandmother Heart Maternal Grandfather other (Dementia) Maternal Grandfather Heart Paternal Grandfather No Known Problems Daughter SOCIAL HISTORY Social History Tobacco Use Smoking status: Never Smoker Smokeless tobacco: Never Used Vaping Use Vaping Use: Never used Substance Use Topics Alcohol use: Yes Comment: occassionally, not while Drug use: Never REVIEW OF SYSTEMS Abdomen: No abdominal pain, nausea, vomiting, diarrhea, or constipation. No bloating, early satiety, indigestion, or increased flatulence. Bladder: No dysuria, gross hematuria, urinary frequency, urinary urgency, or incontinence. Breast: No breast lumps, nipple d/c, overlying skin changes, redness or skin retraction. Allergies and current medication updated:Yes EXAM: BP 112/72 Ht 5' 7.717 (1.72m) Wt 273 lb 3.2 oz (123.9kg) LMP 09/05/2020 BMI 41.89 kg/(m^2). GENERAL: pleasant, female in no apparent distress BREAST: soft, non-tender, symmetric, no dominant mass, normal nipple-areolar complex, no lymphadenopathy and no nipple discharge CHEST: Normal inspiratory effort ABDOMEN: soft, non-tender and no masses PELVIC: external genitalia normal, normal Bartholin's glands, urethra, Yetter's glands, no vulvar lesions, no cervical lesions, good vaginal support, physiologic discharge present, normal appearing perineal body and perianal region; IUD strings extruding from cervical os BIMANUAL: uterus normal size, shape and consistency, no adnexal masses and non-tender RECTOVAGINAL: deferred. NEURO: alert and oriented x3,exam grossly non-focal EXTREMITIES: normal ASSESSMENT/PLAN: 1) Health maintenance: Pap done with HPV. Mammogram starting age 40. Nutrition, exercise and routine health maintenance exams reviewed. 2) Contraception: IUD. Contraceptive options reviewed and information provided. 3) Follow up one year or sooner as needed Sadia Natarajan MD documented in this encounter [facility] 07-06-2019 History of Past i llness Narrative Problem Noted Date Resolved Date Group beta Strep positive 07/06/20192019 Abnormal glucose affecting 05/10/2019 09/09/2019 Overview: 05/20/19 - normal 3hr GTT - Sadia Natarajan MD Low-lying placenta 03/11/2019 06/03/2019 Elevated blood pressure affecting , ant epartum 02/11/2019 09/09/2019 Overview: 06/15/19 - patient likely has undiagnosed chtn, plan for weekly NSTs - Sadia Natarajan MD 02/11/19 - anxiety vs chtn. Start 81mg aspirin & will monitor. 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 MFM counseling was done. See Dr Correa's note.Patient interested in Progesterone first 12 weeks. Discussed [id number].Discussed loss and grieving. Patient aware of Loss Support Group at [facility]. Discussed increased risks of depression after a loss and importance of reporting the development or worsening of symptoms should they occur .Denies any depression symptoms, just anxious about this viability.TKRN Current with histo ry of spontaneous during prior 08/18/2018 09/09/2019 Overview: 12/10/18 - start prometrium, check TSH & GCT at next visit. Sadia Natarajan MD 08/18/2018Patient has a history of a miscarriage 08/2017. Quantitatve HCG's have been ordered by Dr Natarajan. Patient denies any bleeding, pain or cramping this . Miscarriage precautions given. Discussed grieving process. Patient states she has received counseling at [facility]. Patient denies any depression symptoms . Patient given information on [facility] Support Group. TKRN Obesity in 07/25/2017 09/09/2019 Overview: 12/10/2018She is obese. Will plan on GCT @ NOB visit.TKRN Patient requested diagnostic testing 07/25/2017 09/09/2019 Overview: 12/10/18 - discussed [id number] & CF testing at next visit - Sadia Natarajan MD 08/18/2018 Patient desires aneuploidy screening. [id number] discussed. TKRN Irregular menstrual cycle 04/23/20072018 documented as of this encounter (statuses as of 10/23/2021) [facility]2020 History of Past illness Narrative* Problem Noted Date Resolved Date Group beta Strep positive 07/06/20192019 Abnormal glucose affecting 05/10/2019 09/09/2019 Overview: 05/20/19 - normal 3hr GTT - Sadia Natarajan MD Low-lying placenta 03/11/2019 06/03/2019 Elevated blood pressure affecting , ant epartum 02/11/2019 09/09/2019 Overview: 06/15/19 - patient likely has undiagnosed chtn, plan for weekly NSTs - Sadia Natarajan MD 02/11/19 - anxiety vs chtn. Start 81mg aspirin & will monitor. 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 MFM counseling was done. See Dr Correa's note.Patient interested in Progesterone first 12 weeks. Discussed [id number].Discussed loss and grieving. Patient aware of Loss Support Group at [facility]. Discussed increased risks of depression after a loss and importance of reporting the development or worsening of symptoms should they occur .Denies any depression symptoms, just anxious about this viability.TKRN Current with histo ry of spontaneous during prior 08/18/2018 09/09/2019 Overview: 12/10/18 - start prometrium, check TSH & GCT at next visit. Sadia Natarajan MD 08/18/2018Patient has a history of a miscarriage 08/2017. Quantitatve HCG's have been ordered by Dr Natarajan. Patient denies any bleeding, pain or cramping this . Miscarriage precautions given. Discussed grieving process. Patient states she has received counseling at [facility]. Patient denies any depression symptoms . Patient given information on [facility] Support Group. TKRN Obesity in 07/25/2017 09/09/2019 Overview: 12/10/2018She is obese. Will plan on GCT @ NOB visit.TKRN Patient requested diagnostic testing 07/25/2017 09/09/2019 Overview: 12/10/18 - discussed [id number] & CF testing at next visit - Sadia Natarajan MD 08/18/2018 Patient desires aneuploidy screening. [id number] discussed. TKRN Irregular menstrual cycle 04/23/20072018 documented as of this encounter (statuses as of 11/12/2021) [facility] History of Past illness Narrative* Problem Noted Date Resolved Date Group beta Strep positive 07/06/20192019 Abnormal glucose affecting 05/10/2019 09/09/2019 Overview: 05/20/19 - normal 3hr GTT - Sadia Natarajan MD Low-lying placenta 03/11/2019 06/03/2019 Elevated blood pressure affecting , ant epartum 02/11/2019 09/09/2019 Overview: 06/15/19 - patient likely has undiagnosed chtn, plan for weekly NSTs - Sadia Natarajan MD 02/11/19 - anxiety vs chtn. Start 81mg aspirin & will monitor. 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 MFM counseling was done. See Dr Correa's note.Patient interested in Progesterone first 12 weeks. Discussed [id number].Discussed loss and grieving. Patient aware of Loss Support Group at [facility]. Discussed increased risks of depression after a loss and importance of reporting the development or worsening of symptoms should they occur .Denies any depression symptoms, just anxious about this viability.TKRN Current with histo ry of spontaneous during prior 08/18/2018 09/09/2019 Overview: 12/10/18 - start prometrium, check TSH & GCT at next visit. Sadia Natarajan MD 08/18/2018Patient has a history of a miscarriage 08/2017. Quantitatve HCG's have been ordered by Dr Natarajan. Patient denies any bleeding, pain or cramping this . Miscarriage precautions given. Discussed grieving process. Patient states she has received counseling at [facility]. Patient denies any depression symptoms . Patient given information on [facility] Support Group. TKRN Obesity in 07/25/2017 09/09/2019 Overview: 12/10/2018She is obese. Will plan on GCT @ NOB visit.TKRN Patient requested diagnostic testing 07/25/2017 09/09/2019 Overview: 12/10/18 - discussed [id number] & CF testing at next visit - Sadia Natarajan MD 08/18/2018 Patient desires aneuploidy screening. [id number] discussed. TKRN Irregular menstrual cycle 04/23/20072018 documented as of this encounter (statuses as of 02/13/2022) [facility] History of Past illness Narrative* Problem Noted Date Resolved Date Group beta Strep positive 07/06/20192019 Abnormal glucose affecting 05/10/2019 09/09/2019 Overview: 05/20/19 - normal 3hr GTT - Sadia Natarajan MD Low-lying placenta 03/11/2019 06/03/2019 Elevated blood pressure affecting , ant epartum 02/11/2019 09/09/2019 Overview: 06/15/19 - patient likely has undiagnosed chtn, plan for weekly NSTs - Sadia Natarajan MD 02/11/19 - anxiety vs chtn. Start 81mg aspirin & will monitor. 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 MFM counseling was done. See Dr Correa's note.Patient interested in Progesterone first 12 weeks. Discussed [id number].Discussed loss and grieving. Patient aware of Loss Support Group at [facility]. Discussed increased risks of depression after a loss and importance of reporting the development or worsening of symptoms should they occur .Denies any depression symptoms, just anxious about this viability.TKRN Current with histo ry of spontaneous during prior 08/18/2018 09/09/2019 Overview: 12/10/18 - start prometrium, check TSH & GCT at next visit. Sadia Natarajan MD 08/18/2018Patient has a history of a miscarriage 08/2017. Quantitatve HCG's have been ordered by Dr Natarajan. Patient denies any bleeding, pain or cramping this . Miscarriage precautions given. Discussed grieving process. Patient states she has received counseling at [facility]. Patient denies any depression symptoms . Patient given information on [facility] Support Group. TKRN Obesity in 07/25/2017 09/09/2019 Overview: 12/10/2018She is obese. Will plan on GCT @ NOB visit.TKRN Patient requested diagnostic testing 07/25/2017 09/09/2019 Overview: 12/10/18 - discussed [id number] & CF testing at next visit - Sadia Natarajan MD 08/18/2018 Patient desires aneuploidy screening. [id number] discussed. TKRN Irregular menstrual cycle 04/23/20072018 documented as of this encounter (statuses as of 05/27/2022) [facility] History of Past illness Narrative* Problem Noted Date Resolved Date Group beta Strep positive 07/06/20192019 Abnormal glucose affecting 05/10/2019 09/09/2019 Overview: 05/20/19 - normal 3hr GTT - Sadia Natarajan MD Low-lying placenta 03/11/2019 06/03/2019 Elevated blood pressure affecting , ant epartum 02/11/2019 09/09/2019 Overview: 06/15/19 - patient likely has undiagnosed chtn, plan for weekly NSTs - Sadia Natarajan MD 02/11/19 - anxiety vs chtn. Start 81mg aspirin & will monitor. 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 MFM counseling was done. See Dr Correa's note.Patient interested in Progesterone first 12 weeks. Discussed [id number].Discussed loss and grieving. Patient aware of Loss Support Group at [facility]. Discussed increased risks of depression after a loss and importance of reporting the development or worsening of symptoms should they occur .Denies any depression symptoms, just anxious about this viability.TKRN Current with histo ry of spontaneous during prior 08/18/2018 09/09/2019 Overview: 12/10/18 - start prometrium, check TSH & GCT at next visit. Sadia Natarajan MD 08/18/2018Patient has a history of a miscarriage 08/2017. Quantitatve HCG's have been ordered by Dr Natarajan. Patient denies any bleeding, pain or cramping this . Miscarriage precautions given. Discussed grieving process. Patient states she has received counseling at [facility]. Patient denies any depression symptoms . Patient given information on [facility] Support Group. TKRN Obesity in 07/25/2017 09/09/2019 Overview: 12/10/2018She is obese. Will plan on GCT @ NOB visit.TKRN Patient requested diagnostic testing 07/25/2017 09/09/2019 Overview: 12/10/18 - discussed [id number] & CF testing at next visit - Sadia Natarajan MD 08/18/2018 Patient desires aneuploidy screening. [id number] discussed. TKRN Irregular menstrual cycle 04/23/20072018 documented as of this encounter (statuses as of 08/03/2022) [facility] History of Past illness Narrative* Problem Noted Date Resolved Date Group beta Strep positive 07/06/20192019 Abnormal glucose affecting 05/10/2019 09/09/2019 Overview: 05/20/19 - normal 3hr GTT - Sadia Natarajan MD Low-lying placenta 03/11/2019 06/03/2019 Elevated blood pressure affecting , ant epartum 02/11/2019 09/09/2019 Overview: 06/15/19 - patient likely has undiagnosed chtn, plan for weekly NSTs - Sadia Natarajan MD 02/11/19 - anxiety vs chtn. Start 81mg aspirin & will monitor. 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 MFM counseling was done. See Dr Correa's note.Patient interested in Progesterone first 12 weeks. Discussed [id number].Discussed loss and grieving. Patient aware of Loss Support Group at [facility]. Discussed increased risks of depression after a loss and importance of reporting the development or worsening of symptoms should they occur .Denies any depression symptoms, just anxious about this viability.TKRN Current with histo ry of spontaneous during prior 08/18/2018 09/09/2019 Overview: 12/10/18 - start prometrium, check TSH & GCT at next visit. Sadia Natarajan MD 08/18/2018Patient has a history of a miscarriage 08/2017. Quantitatve HCG's have been ordered by Dr Natarajan. Patient denies any bleeding, pain or cramping this . Miscarriage precautions given. Discussed grieving process. Patient states she has received counseling at [facility]. Patient denies any depression symptoms . Patient given information on [facility] Support [facility]. TKRN Obesity in 07/25/2017 09/09/2019 Overview: 12/10/2018She is obese. Will plan on GCT @ NOB visit.TKRN Patient requested diagnostic testing 07/25/2017 09/09/2019 Overview: 12/10/18 - discussed [id number] & CF testing at next visit - Sadia Natarajan MD 08/18/2018 Patient desires aneuploidy screening. [id number] discussed. TKRN Irregular menstrual cycle 04/23/20072018 documented as of this encounter (statuses as of 10/10/2022) [facility] History of Past illness Narrative* Problem Noted Date Resolved Date Group beta Strep positive 07/06/20192019 Abnormal glucose affecting 05/10/2019 09/09/2019 Overview: 05/20/19 - normal 3hr GTT - Sadia Natarajan MD Low-lying placenta 03/11/2019 06/03/2019 Elevated blood pressure affecting , ant epartum 02/11/2019 09/09/2019 Overview: 06/15/19 - patient likely has undiagnosed chtn, plan for weekly NSTs - Sadia Natarajan MD 02/11/19 - anxiety vs chtn. Start 81mg aspirin & will monitor. 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 MFM counseling was done. See Dr Correa's note.Patient interested in Progesterone first 12 weeks. Discussed [id number].Discussed loss and grieving. Patient aware of Loss Support Group at [facility]. Discussed increased risks of depression after a loss and importance of reporting the development or worsening of symptoms should they occur .Denies any depression symptoms, just anxious about this viability.TKRN Current with histo ry of spontaneous during prior 08/18/2018 09/09/2019 Overview: 12/10/18 - start prometrium, check TSH & GCT at next visit. Sadia Natarajan MD 08/18/2018Patient has a history of a miscarriage 08/2017. Quantitatve HCG's have been ordered by Dr Natarajan. Patient denies any bleeding, pain or cramping this . Miscarriage precautions given. Discussed grieving process. Patient states she has received counseling at [facility]. Patient denies any depression symptoms . Patient given information on [facility] Support [facility]. TKRN Obesity in 07/25/2017 09/09/2019 Overview: 12/10/2018She is obese. Will plan on GCT @ NOB visit.TKRN Patient requested diagnostic testing 07/25/2017 09/09/2019 Overview: 12/10/18 - discussed [id number] & CF testing at next visit - Sadia Natarajan MD 08/18/2018 Patient desires aneuploidy screening. [id number] discussed. TKRN Irregular menstrual cycle 04/23/20072018 documented as of this encounter (statuses as of 10/25/2022) [facility] History of Past illness Narrative* Problem Noted Date Diagnosed Date Resolved Date Group beta Strep positive 07/06/2019 Abnormal glucose affecting 05/10/2019 09/09/2019 Overview: 05/20/19 - normal 3hr GTT - Sadia Natarajan MD Low-lying placenta 03/11/2019 0 Elevated blood pressure affe cting , antepartum 02/11/2019 09/09/2019 Overview: 06/15/19 - patient likely has undiagnosed chtn, plan for weekly NSTs - Sadia Nataarjan MD 02/11/19 - anxiety vs chtn. Start 81mg aspirin & will monitor. 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 MFM counseling was done. See Dr Correa's note.Patient interested in Progesterone first 12 weeks. Discussed [id number].Discussed loss and grieving. Patient aware of Loss Support Group at [facility]. Discussed increased risks of depression after a loss and importance of reporting the development or worsening of symptoms should they occur .Denies any depression symptoms, just anxious about this viability.TKRN Current with histo ry of spontaneous during prior 08/18/2018 09/09/19 20 Overview: 12/10/18 - start prometrium, check TSH & GCT at next visit. Sadia Natarajan MD 08/18/2018Patient has a history of a miscarriage 08/2017. Quantitatve HCG's have been ordered by Dr Natarajan. Patient denies any bleeding, pain or cramping this . Miscarriage precautions given. Discussed grieving process. Patient states she has received counseling at [facility]. Patient denies any depression symptoms . Patient given information on [facility] Support [facility]. TKRN Obesity in 07/25/2017 020 Overview: 12/10/2018She is obese. Will plan on GCT @ NOB visit.TKRN Patient requested diagnostic testing 07/25/2017 09/09/2019 Overview: 12/10/18 - discussed [id number] & CF testing at next visit - Sadia Natarajan MD 08/18/2018 Patient desires aneuploidy screening. [id number] discussed. TKRN Irregular menstrual cycle 04/23/2007 documented as of this encounter (statuses as of 12/30/2022) [facility] History of Past illness Narrative* Problem Noted Date Diagnosed Date Resolved Date Group beta Strep positive 07/06/2019 Abnormal glucose affecting 05/10/2019 09/09/2019 Overview: 05/20/19 - normal 3hr GTT - Sadia Natarajan MD Low-lying placenta 03/11/2019 0 Elevated blood pressure affe cting , antepartum 02/11/2019 09/09/2019 Overview: 06/15/19 - patient likely has undiagnosed chtn, plan for weekly NSTs - Sadia Natarajan MD 02/11/19 - anxiety vs chtn. Start 81mg aspirin & will monitor. 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 MFM counseling was done. See Dr Correa's note.Patient interested in Progesterone first 12 weeks. Discussed [id number].Discussed loss and grieving. Patient aware of Loss Support Group at [facility]. Discussed increased risks of depression after a loss and importance of reporting the development or worsening of symptoms should they occur .Denies any depression symptoms, just anxious about this viability.TKRN Current with histo ry of spontaneous during prior 08/18/2018 09/09/19 20 Overview: 12/10/18 - start prometrium, check TSH & GCT at next visit. Sadia Natarajan MD 08/18/2018Patient has a history of a miscarriage 08/2017. Quantitatve HCG's have been ordered by Dr Natarajan. Patient denies any bleeding, pain or cramping this . Miscarriage precautions given. Discussed grieving process. Patient states she has received counseling at [facility]. Patient denies any depression symptoms . Patient given information on [facility] Support [facility]. TKRN Obesity in 07/25/2017 020 Overview: 12/10/2018She is obese. Will plan on GCT @ NOB visit.TKRN Patient requested diagnostic testing 07/25/2017 09/09/2019 Overview: 12/10/18 - discussed [id number] & CF testing at next visit - Sadia Natarajan MD 08/18/2018 Patient desires aneuploidy screening. [id number] discussed. TKRN Irregular menstrual cycle 04/23/2007 documented as of this encounter (statuses as of 01/02/2023) [facility] History of Past illness Narrative* Problem Noted Date Diagnosed Date Resolved Date Group beta Strep positive 07/06/2019 Abnormal glucose affecting 05/10/2019 09/09/2019 Overview: 05/20/19 - normal 3hr GTT - Sadia Natarajan MD Low-lying placenta 03/11/2019 0 Elevated blood pressure affe cting , antepartum 02/11/2019 09/09/2019 Overview: 06/15/19 - patient likely has undiagnosed chtn, plan for weekly NSTs - Sadia Natarajan MD 02/11/19 - anxiety vs chtn. Start 81mg aspirin & will monitor. 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 MFM counseling was done. See Dr Correa's note.Patient interested in Progesterone first 12 weeks. Discussed [id number].Discussed loss and grieving. Patient aware of Loss Support Group at [facility]. Discussed increased risks of depression after a loss and importance of reporting the development or worsening of symptoms should they occur .Denies any depression symptoms, just anxious about this viability.TKRN Current with histo ry of spontaneous during prior 08/18/2018 09/09/19 20 Overview: 12/10/18 - start prometrium, check TSH & GCT at next visit. Sadia Natarajan MD 08/18/2018Patient has a history of a miscarriage 08/2017. Quantitatve HCG's have been ordered by Dr Natarajan. Patient denies any bleeding, pain or cramping this . Miscarriage precautions given. Discussed grieving process. Patient states she has received counseling at [facility]. Patient denies any depression symptoms . Patient given information on [facility] Support Group. TKRN Obesity in 07/25/2017 020 Overview: 12/10/2018She is obese. Will plan on GCT @ NOB visit.TKRN Patient requested diagnostic testing 07/25/2017 09/09/2019 Overview: 12/10/18 - discussed [id number] & CF testing at next visit - Sadia Natarajan MD 08/18/2018 Patient desires aneuploidy screening. [id number] discussed. TKRN Irregular menstrual cycle 04/23/2007 documented as of this encounter (statuses as of 03/09/2023) [facility] History of Past illness Narrative* Problem Noted Date Diagnosed Date Resolved Date Group beta Strep positive 07/06/2019 Abnormal glucose affecting 05/10/2019 09/09/2019 Overview: 05/20/19 - normal 3hr GTT - Sdaia Natarajan MD Low-lying placenta 03/11/2019 0 Elevated blood pressure affe cting , antepartum 02/11/2019 09/09/2019 Overview: 06/15/19 - patient likely has undiagnosed chtn, plan for weekly NSTs - Sadia Natarajan MD 02/11/19 - anxiety vs chtn. Start 81mg aspirin & will monitor. 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 MFM counseling was done. See Dr Correa's note.Patient interested in Progesterone first 12 weeks. Discussed [id number].Discussed loss and grieving. Patient aware of Loss Support Group at [facility]. Discussed increased risks of depression after a loss and importance of reporting the development or worsening of symptoms should they occur .Denies any depression symptoms, just anxious about this viability.TKRN Current with histo ry of spontaneous during prior 08/18/2018 09/09/19 20 Overview: 12/10/18 - start prometrium, check TSH & GCT at next visit. Sadia Natarajan MD 08/18/2018Patient has a history of a miscarriage 08/2017. Quantitatve HCG's have been ordered by Dr Natarajan. Patient denies any bleeding, pain or cramping this . Miscarriage precautions given. Discussed grieving process. Patient states she has received counseling at [facility]. Patient denies any depression symptoms . Patient given information on [facility] Support Group. TKRN Obesity in 07/25/2017 020 Overview: 12/10/2018She is obese. Will plan on GCT @ NOB visit.TKRN Patient requested diagnostic testing 07/25/2017 09/09/2019 Overview: 12/10/18 - discussed [id number] & CF testing at next visit - Sadia Natarajan MD 08/18/2018 Patient desires aneuploidy screening. [id number] discussed. TKRN Irregular menstrual cycle 04/23/2007 documented as of this encounter (statuses as of 04/18/2023) [facility] Diagnosis Encounter for gynecological examination without abnormal finding- Primary Routine gynecological examination Encounter for screening for malignant neoplasm of cervix Screening for malignant neoplasm of the cervix Special screening examination for human papillomavirus (HPV) documented [facility]* Diagnosis URI, acute- Primary Acute upper respiratory infections of unspecified site Acute otitis media, left Unspecified otitis media [facility]* Diagnosis Other acute nonsuppurative otitis media of left ear, recurrence not specified- Primary Viral URI with cough Acute upper respiratory infections of unspecified site [facility]* Diagnosis Wellness examination- Primary Essential hypertension Unspecified essential hypertension Screening for hyperlipidemia Screening for lipoid disorders Encounter for immunization Need for other specified prophylactic vaccination against single bacterial disease [facility]* Diagnosis Encounter for gynecological examination without abnormal finding- Primary Routine gynecological examination Special screening for malignant neoplasms, colon [facility] Diagnosis Special screening for malignant neoplasms, colon- Primary [facility]* Diagnosis URI with cough and congestion- Primary Wheezing [facility]* Diagnosis Wellness examination- Primary Anxiety with depression Essential hypertension Unspecified essential hypertension Screening for cholesterol level Screening for lipoid disorders Elevated glucose Other abnormal glucose [facility]* Diagnosis Allergic contact dermatitis due to plants, except food- Primary Contact dermatitis and other eczema due to plants (except food) [facility]* Diagnosis Encounter for IUD removal- Primary Encounter for removal of intrauterine contraceptive device [facility]* Diagnosis Encounter for gynecological examination (general) (routine) without abnormal findings- Primary Encounter for IUD removal Encounter for removal of intrauterine contraceptive device [facility] Diagnosis URI, acute- Primary Acute upper respiratory infections of unspecified site Acute otitis media, right Unspecified otitis media [facility]* Diagnosis Contact dermatitis due to plant- Primary Contact dermatitis and other eczema due to plants (except food) Impaired fasting glucose [facility]* Diagnosis Poison aishwarya dermatitis- Primary Contact dermatitis and other eczema due to plants (except food) Essential hypertension Unspecified essential hypertension [facility] Diagnosis Annual physical exam- Primary Routine general medical examination at a health care facility Essential hypertension Unspecified essential hypertension Anxiety with depression Morbid obesity with BMI of 40.0-44.9, adult (HCC) Morbid obesity Snoring Other dyspnea and respiratory abnormality Daytime somnolence Hypersomnia, unspecified documented in this encounter [facility] for referral (narrative)* Outpatient Procedure (Routine) - Pending Review Specialty Diagnoses / Procedures Referred By Jose L vance Referred To Contact [facility] Diagnoses Special screening for malignant neoplasms, colon Procedures COLONOSCOPY SCREENING COLONOSCOPY FLX DX W/COLLJ SPEC WHEN Sadia Roland MD [address] [place] [address] [facility] [place] [id number] Referral ID Status Reason Start Date Expiration Date Visits Requested Visits Authorized [id number] Pending Review Auto-Generat ed Referral 10/24/2022 10/25/2023 1 1 [facility] for referral (narrative)* Outpatient Procedure (Routine) - Closed Specialty Diagnoses / Procedures Referred By Jose L vance Referred To Contact [facility] [place] Diagnoses Special screening for malignant neoplasms, colon Procedures COLONOSCOPY SCREENING COLONOSCOPY FLX DX W/COLLJ SPEC WHEN Sadia Roland MD [address] [place] [address] [place] [id number] Referral ID Status Reason Start Date Expiration Date V isits Requested Visits Authorized [id number] Closed Auto-Generate d Referral 10/24/2022 10/25/2023 1 1 [facility] for referral (narrative)* Outpatient Procedure (Routine) - Authorized Specialty Diagnoses / Procedures Referred By Jose L vance Referred To Contact [facility] Diagnoses Encounter for IUD removal Procedures REMOVE INTRAUTERINE DEVICE REMOVE INTRAUTERINE DEVICE Sadia Natarajan MD [address] [address] [address] Referral ID Status Reason Start Date Expiration Date Visits Requested Visits Authorized [id number] Authorized Auto-Generat ed Referral 02/05/2024 02/04/2025 1 1 [facility] for referral (narrative)* Outpatient Procedure (Routine) - New Request Specialty Diagnoses / Procedures Referred By Jose L vance Referred To Contact [facility] Diagnoses Encounter for IUD removal Procedures REMOVE INTRAUTERINE DEVICE REMOVE INTRAUTERINE DEVICE Sadia Natarajan MD [address] [place] [address] [address] Referral ID Status Reason Start Date Expiration Date Visits Requested Visits Authorized [id number] New Request Auto-Generat ed Referral 03/09/2024 03/09/2025 1 1 [facility] for visit Narrative* Outpatient Procedure (Routine) - Closed Specialty Diagnoses / Procedures Referred By Jose L vance Referred To Contact [facility] [place] Diagnoses Special screening for malignant neoplasms, colon Procedures COLONOSCOPY SCREENING COLONOSCOPY FLX DX W/COLLJ SPEC WHEN PFRMD Sadia Natarajan MD [address] [place] [address] [address] Referral ID Status Reason Start Date Expiration Date V isits Requested Visits Authorized [id number] Closed Auto-Generate d Referral 10/24/2022 10/25/2023 1 1 [facility] Advance Directives No Advanced Directives Records FoundDocuments on File Type Date Recorded Patient [employer] Advance Directive(s) 10/17/2020 9:49 AM Advance Directive(s) 08/21/2015 7:31 AM Advance Directive(s) 08/03/2015 3:32 PM Summary Purpose Family History No Family History Records FoundNo Family History Records FoundNo Family History Records Found Medications Administered Section Inactive Administered Medications - up to 3 most recent administrations Medication Order MAR Action Action Date Dose Rate Site diphenhydrAMINE 12.5-50 mg injection (BENADRYL) 12.5-50 mg, INTRAVENOUS, DIRECTED, Starting on Madhavi 12/19/22 at 0930, Until Madhavi 12/19/22 at 1329, DOSING DIRECTED BY PHYSICIAN FOR PROCEDURAL SEDATION ONLY, Intraprocedure Given 12/19/2022 9:22 AM EDT 50 mg fentaNYL 50 mcg/mL 25-100 mcg injection (SUBLIMAZE) 25-100 mcg, INTRAVENOUS, DIRECTED, Starting on Madhavi 12/19/22 at 0930, Until Madhavi 12/19/22 at 1329, DOSING DIRECTED BY PHYSICIAN FOR PROCEDURAL SEDATION ONLY, Intraprocedure Given by [facility] 12/19/2022 9:20 AM EDT 25 mcg Given by [facility] 12/19/2022 9:19 AM EDT 25 mcg Given by [facility] 12/19/2022 9:18 AM EDT 50 mcg lactated ringers iv infusion 30 mL/hr, INTRAVENOUS, CONTINUOUS, Starting on Madhavi 12/19/22 at 0900, Until Madhavi 12/19/22 at 0951, Preprocedure New Bag/Syringe/Bottle 12/19/2022 8:45 AM EDT 30 mL/hr 30 mL/hr Hand, Right midazolam 1-5 mg injection (VERSED) 1-5 mg, INTRAVENOUS, DIRECTED, Starting on Madhavi 12/19/22 at 0930, Until Madhavi 12/19/22 at 1329, DOSING DIRECTED BY PHYSICIAN FOR PROCEDURAL SEDATION ONLY, Intraprocedure Given 12/19/2022 9:25 AM EDT 1 mg Given by [facility] 12/19/2022 9:20 AM EDT 1 mg Given by [facility] 12/19/2022 9:19 AM EDT 1 mg Additional Source Comments Source Comments (unrecognize d section and content) In the event this informatio n is protected by the Federal Confidentiality of Alcohol and Drug Abuse Patient Records regulations: The Federal rules restrict any use of the information to criminally investigate or prosecute any alcohol or drug abuse patient.[facility] event this information is protected by the Federal Confidentiality of Alcohol and Drug Abuse Patient Records regulations: The Federal rules restrict any use of the information to criminally investigate or prosecute any alcohol or drug abuse patient.[facility] the event this information is protected by the Federal Confidentiality of Alcohol and Drug Abuse Patient Records regulations: The Federal rules restrict any use of the information to criminally investigate or prosecute any alcohol or drug abuse patient.[facility] the event this information is protected by the Federal Confidentiality of Alcohol and Drug Abuse Patient Records regulations: The Federal rules restrict any use of the information to criminally investigate or prosecute any alcohol or drug abuse patient.[facility] the event this information is protected by the Federal Confidentiality of Alcohol and Drug Abuse Patient Records regulations: The Federal rules restrict any use of the information to criminally investigate or prosecute any alcohol or drug abuse patient.[facility] the event this information is protected by the Federal Confidentiality of Alcohol and Drug Abuse Patient Records regulations: The Federal rules restrict any use of the information to criminally investigate or prosecute any alcohol or drug abuse patient.[facility] the event this information is protected by the Federal Confidentiality of Alcohol and Drug Abuse Patient Records regulations: The Federal rules restrict any use of the information to criminally investigate or prosecute any alcohol or drug abuse patient.[facility] the event this information is protected by the Federal Confidentiality of Alcohol and Drug Abuse Patient Records regulations: The Federal rules restrict any use of the information to criminally investigate or prosecute any alcohol or drug abuse patient.[facility] the event this information is protected by the Federal Confidentiality of Alcohol and Drug Abuse Patient Records regulations: The Federal rules restrict any use of the information to criminally investigate or prosecute any alcohol or drug abuse patient.[facility] the event this information is protected by the Federal Confidentiality of Alcohol and Drug Abuse Patient Records regulations: The Federal rules restrict any use of the information to criminally investigate or prosecute any alcohol or drug abuse patient.[facility] the event this information is protected by the Federal Confidentiality of Alcohol and Drug Abuse Patient Records regulations: The Federal rules restrict any use of the information to criminally investigate or prosecute any alcohol or drug abuse patient.[facility] the event this information is protected by the Federal Confidentiality of Alcohol and Drug Abuse Patient Records regulations: The Federal rules restrict any use of the information to criminally investigate or prosecute any alcohol or drug abuse patient.[facility] the event this information is protected by the Federal Confidentiality of Alcohol and Drug Abuse Patient Records regulations: The Federal rules restrict any use of the information to criminally investigate or prosecute any alcohol or drug abuse patient.[facility] the event this information is protected by the Federal Confidentiality of Alcohol and Drug Abuse Patient Records regulations: The Federal rules restrict any use of the information to criminally investigate or prosecute any alcohol or drug abuse patient.[facility] the event this information is protected by the Federal Confidentiality of Alcohol and Drug Abuse Patient Records regulations: The Federal rules restrict any use of the information to criminally investigate or prosecute any alcohol or drug abuse patient.[facility] the event this information is protected by the Federal Confidentiality of Alcohol and Drug Abuse Patient Records regulations: The Federal rules restrict any use of the information to criminally investigate or prosecute any alcohol or drug abuse patient.[facility] the event this information is protected by the Federal Confidentiality of Alcohol and Drug Abuse Patient Records regulations: The Federal rules restrict any use of the information to criminally investigate or prosecute any alcohol or drug abuse patient.[facility] the event this information is protected by the Federal Confidentiality of Alcohol and Drug Abuse Patient Records regulations: The Federal rules restrict any use of the information to criminally investigate or prosecute any alcohol or drug abuse patient.[facility] the event this information is protected by the Federal Confidentiality of Alcohol and Drug Abuse Patient Records regulations: The Federal rules restrict any use of the information to criminally investigate or prosecute any alcohol or drug abuse patient.[facility] the event this information is protected by the Federal Confidentiality of Alcohol and Drug Abuse Patient Records regulations: The Federal rules restrict any use of the information to criminally investigate or prosecute any alcohol or drug abuse patient.[facility] the event this information is protected by the Federal Confidentiality of Alcohol and Drug Abuse Patient Records regulations: The Federal rules restrict any use of the information to criminally investigate or prosecute any alcohol or drug abuse patient.[facility] the event this information is protected by the Federal Confidentiality of Alcohol and Drug Abuse Patient Records regulations: The Federal rules restrict any use of the information to criminally investigate or prosecute any alcohol or drug abuse patient.[facility] the event this information is protected by the Federal Confidentiality of Alcohol and Drug Abuse Patient Records regulations: The Federal rules restrict any use of the information to criminally investigate or prosecute any alcohol or drug abuse patient.[facility] Reason for Visit (unrecogniz ed section and content) Reason Onset Date Comments Yearly Exam 10/23/2021 Reason Onset Date Comments Refill Request 11/11/2021 Reason Comments Pain, Sinus sinus pressure x 4 d ays, left ear pain x this am Reason Onset Date Comments Refill Request 05/25/2022 Reason Comments Ear Problem Pt reported (LT) ear pain, cough, chest congestion x4 days. Reason Comments Yearly Exam Reason Onset Date Comments Yearly Exam 10/24/2022 Reason Comments Results Reason Comments Cough Cough, congestion an d runny nose x 1 week Reason Comments Rash itching all over x 8 days Reason Onset Date Comments Refill Request 10/29/2023 Reason Onset Date Comments Refill Request 01/21/2024 Reason Onset Date Comments IUD Removal 03/09/2024 [facility] Specialty Diagnoses / Procedures Referred By Jose L vance Referred To Contact [facility] Diagnoses Encounter for IUD removal Procedures REMOVE INTRAUTERINE DEVICE REMOVE INTRAUTERINE DEVICE Sadia Natarajan MD [address] [place] [address] [facility] [address] [place] [address] Referral ID Status Reason Start Date Expiration Date V isits Requested Visits Authorized [id number] Closed Auto-Generate d Referral 02/05/2024 02/04/2025 1 1 Reason Onset Date Comments Refill Request 07/09/2024 Reason Comments Ear Pain R ear pain and press ure, x 2 daysNasal congestion/ cold over the weekend Reason Comments poison aishwarya All over x 2 days Reason Comments Rash [facility] F/U 11/10. Seen for itchy rash. Suspect poison aishwarya. Was outside weed eating 2 days prior to rash. Completed prednisone taper today. New spots are appearing. Presented first on neck/jaw line. Rash is all over. Reason Comments Physical Care Teams (unrecognized sec tion and content) Printing Machine Operator Tape Rules Relationship Specialty Start Date End Date Hill Mai MD [address] [place], [place] [id number] PCP - General Family Practice 11/02/20 Printing Machine Operator Tape Rules Relationship Specialty Start Date End Date Hill Mai MD [address] [place] [address] PCP - General Family Practice 11/02/20 Printing Machine Operator Tape Rules Relationship Specialty Start Date End Date Hill Mai MD [address] [place] [address] PCP - General Family Medicine 11/02/20 Printing Machine Operator Tape Rules Relationship Specialty Start Date End Date Hill Mai MD [address] [facility] [address] PCP - General Family Medicine 11/02/20 Printing Machine Operator Tape Rules Relationship Specialty Start Date End Date Hill Mai MD [address] [place] [address] PCP - General Family Medicine 11/02/20 Printing Machine Operator Tape Rules Relationship Specialty Start Date End Date Hill Mai MD [address] [place] [address] PCP - General Family Medicine 11/02/20 Printing Machine Operator Tape Rules Relationship Specialty Start Date End Date Hill Mai MD [address] [place] [address] PCP - General Family Medicine 11/02/20 Printing Machine Operator Tape Rules Relationship Specialty Start Date End Date Hill Mai MD [address] [place] [address] PCP - General Family Medicine 11/02/20 Printing Machine Operator Tape Rules Relationship Specialty Start Date End Date Hill Mai MD [address] [place] [address] PCP - General Family Medicine 11/02/20 Printing Machine Operator Tape Rules Relationship Specialty Start Date End Date Hill Mai MD [address] [place] [address] PCP - General Family Medicine 11/02/20 Printing Machine Operator Tape Rules Relationship Specialty Start Date End Date Hill Mai MD [address] [place] [address] PCP - General Family Medicine 11/02/20 Printing Machine Operator Tape Rules Relationship Specialty Start Date End Date Hill Mai MD [address] [facility] [address] PCP - General Family Medicine 11/02/20 Printing Machine Operator Tape Rules Relationship Specialty Start Date End Date Hill Mai MD [address] [facility] [place] [address] PCP - General Family Medicine 11/02/20 Printing Machine Operator Tape Rules Relationship Specialty Start Date End Date Hill Mai MD [address] [facility] [place] [address] PCP - General Family Medicine 11/02/20 Printing Machine Operator Tape Rules Relationship Specialty Start Date End Date Hill Mai MD [address] [facility] [address] PCP - General Family Medicine 11/02/20 Printing Machine Operator Tape Rules Relationship Specialty Start Date End Date Hill Mai MD [address] [facility] [place] [address] PCP - General Family Medicine 11/02/20 PodlogVioleta garcia APRN.POWER PRESS TENDER [address] [facility] [address] Tile Applicator Family Medicine 04/10/24 Printing Machine Operator Tape Rules Relationship Specialty Start Date End Date Hill Mai MD [address] [facility] [place] [address] PCP - General Family Medicine 11/02/20 PodlogVioleta garcia APRN.POWER PRESS TENDER [address] [facility] [place] [address] [employer]ile [employer]ator Family Medicine 04/10/24 Ngoc Meraz APRN.POWER PRESS TENDER [address] [place], [place] [address] [phone] [facility] 07/26/24 Printing Machine Operator Tape Rules Relationship Specialty Start Date End Date Hill Mai MD [address] [place] [address] PCP - General Family Medicine 11/02/20 PodlogarVioleta APRN.POWER PRESS TENDER [address] [place] [address] [facility] 04/10/24 Ngoc Meraz PEDIATRIC PHYSICIAN.POWER PRESS TENDER [address] [place] [address] [facility] 10/14/24 Printing Machine Operator Tape Rules Relationship Specialty Start Date End Date Hill Mai MD [address] [place] [address] PCP - General Family Medicine 11/02/20 PodjosiasarVioleta PEDIATRIC PHYSICIAN.POWER PRESS TENDER [address] [place] [address] [facility] Medicine 04/10/24 Ngoc Meraz PEDIATRIC PHYSICIAN.POWER PRESS TENDER [address] [place] [address] [facility] Medicine 10/14/24 Printing Machine Operator Tape Rules Relationship Specialty Start Date End Date Hill Mai MD [address] [place] [address] PCP - General Family Medicine 11/02/20 Marco AntoniologVioleta garcia APRN.POWER PRESS TENDER [address] [place], [place] [address] [facility] 04/10/24 Ngoc Meraz APRN.POWER PRESS TENDER [address] [place], [place] [phone] [facility] 10/14/24 Printing Machine Operator Tape Rules Relationship Specialty Start Date End Date Hill Mai MD [address] [place], [place] [id number] PCP - [facility] Medicine 11/02/20 PodlogarVioleta APRN.POWER PRESS TENDER [address] [place], [place] [id number] [facility] 04/10/24 Ngoc Meraz APRN.POWER PRESS TENDER [address] [place], [place] [id number] [facility] 10/14/24 INFORMATION SOURCE (unrecogn ized section and content) DATE CREATED AUTHOR 12/22/2022 [facility] DATE CREATED AUTHOR AUTHOR'S ORGANIZ ATION 02/18/[address] [facility] DATE CREATED AUTHOR AUTHOR'S ORGANIZ ATION 02/20/2025 [facility] FOR RECORDS PERTAINING TO PATIENTS WHO ARE OR HAVE BEEN ENROLLED IN A CHEMICAL DEPENDENCY/SUBSTANCEABUSE PROGRAM, SOME INFORMATION MAY BE OMITTED. This clinical summary was aggregated from multiple sources. Caution should be exercised in using it in the provision of clinical care. This summary normalizes information from multiple sources, and as a consequence, information in this document may materially change the coding, format and clinical context of patient data. In addition, data may be omitted in some cases. CLINICAL DECISIONS SHOULD BE BASED ON THE PRIMARY CLINICAL RECORDS. [facility]. provides no warranty or guarantee of the accuracy or completeness of information in this document.
[2025-02-27 16:00] VITALS: BP 168/88; PULSE 78; O2SAT 100
[2025-02-27 16:13] VITALS: BP 168/88; PULSE 78; RESP 18; TEMP 37; O2SAT 100
== END 2025-02-27 16:13 | disposition home or self-care (01) ==
PROVIDERS: Emergency Provider Emergency Medicine; PCP Family Medicine; Visit Provider Emergency Medicine
DX: H81.12 Benign paroxysmal vertigo, left ear (principal); Z68.41 Body mass index [BMI] 40.0-44.9, adult; E66.9 Obesity, unspecified; R03.0 Elevated blood-pressure reading, without diagnosis of hypertension
CPT/HCPCS: 99283